=== PATIENT | male | born 1930 | race Caucasian/White ===

== ENCOUNTER → 2016-09-09 | Outpatient (CLI) | payer MEDICARE, MEDICAID ==
[~2016-09-09] MED LIST: /CLON1TA PO; /ESOM40CA OR; /METO25TAB PO; ASPI81TA63 OR; DIOV320T PO; FERR325T3 PO; FISHCAP PO; GARL10004 PO; GLUC1000 OR; GLUC10TA3 OR; INSUDET SC; INSULANT SC; ISOS30BRAN OR; LISI5TAB PO; METO50TA4 OR; MULTTAB4 PO; NORV5TAB OR; PLAV75TA2 OR; PRAV20TA2 PO; [UNRECOGNIZED DRUG - CODE] TD; onglyza PO
[2016-09-09 12:48] LABS: MEAN CORPUSCULAR HEMOGLOBIN 30.5 pg (27.0-33.0); MEAN CORPUSCULAR HGB CONC 33.4 g/dl (32.0-36.5); MEAN CORPUSCULAR VOLUME 91.4 fl (80.0-96.0); RED CELL DISTRIBUTION WIDTH 13.4 % (11.5-14.5); WHITE BLOOD COUNT 6.5 K/mm3 (4.0-10.0)
--- NOTE | 2016-09-09 13:04 | ECGEPIP ---
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 First-degree AV block. 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 Right bundle branch block, new from 08/06/15 Should there be a history of syncope, pacemaker implantation would be recommended Electronically Signed On 09-09-2016 13:04:08 EDT by Dillon El
[2016-09-09 13:18] LABS: ALBUMIN 3.5 GM/DL (3.2-5.2); ALBUMIN/GLOBULIN RATIO 1.25 (1.00-1.93); ALKALINE PHOSPHATASE 51 U/L (45-117); ALT/SGPT 21 U/L (12-78); ANION GAP 8 MEQ/L (8-16); AST/SGOT 9 U/L (15-37); BILIRUBIN,TOTAL 0.4 MG/DL (0.2-1.0); BLOOD UREA NITROGEN 20 MG/DL (7-18); CALCIUM LEVEL 8.5 MG/DL (8.8-10.2); CARBON DIOXIDE LEVEL 27 MEQ/L (21-32); CHLORIDE LEVEL 108 MEQ/L (98-107); CHOLESTEROL LEVEL 136 MG/DL (<200); CREATININE FOR GFR 0.96 MG/DL (0.70-1.30); GLOMERULAR FILTRATION RATE > 60.0 (>35); GLUCOSE, FASTING 243 MG/DL (83-110); POTASSIUM SERUM 4.5 MEQ/L (3.5-5.1); SODIUM LEVEL 143 MEQ/L (136-145); TOTAL PROTEIN 6.3 GM/DL (6.4-8.2); TRIGLYCERIDES LEVEL 121 MG/DL (<150)
--- NOTE | 2016-09-09 14:03 | REP ---
Chest two views HISTORY: Hypertension Comparison: 08/06/2015 The lungs are clear. The heart is normal in size. The pulmonary vasculature is normal in appearance. There is an old compression fracture of an upper thoracic vertebral body. Degenerative changes present in the thoracic spine. IMPRESSION: No acute disease. Signed by Modesto Farrar MD 09/09/2016 01:54 P
== END ==
LOC: M LAB 11:26
PROVIDERS: ATTEND Family Medicine
DX: I10 Essential (primary) hypertension (principal); E11.9 Type 2 diabetes mellitus without complications; I44.0 Atrioventricular block, first degree; I45.19 Other right bundle-branch block

== ENCOUNTER 2018-03-18 09:02 | Inpatient (IN) | payer MEDICARE, MEDICAID ==
[~2018-03-18] VITALS: Ht 162.6 cm; Wt 99.6 kg
[2018-03-18] MEDS ORDERED: PRAV40TA2 PO (09:18)
[2018-03-18] MEDS ORDERED: NEXI40GR PO (09:18)
[2018-03-18] MEDS ORDERED: CLOP75TA2 PO (09:18)
[2018-03-18] MEDS ORDERED: AMLO5TAB6 PO (09:18)
[2018-03-18] MEDS ORDERED: DOXA1TAB41 PO (09:18)
[2018-03-18] MEDS ORDERED: METO1TAB87 PO (09:18)
[2018-03-18] MEDS ORDERED: LEVE1INJ5 (09:18)
[2018-03-18] MEDS ORDERED: ISOS1TAB12 (09:18)
[2018-03-18] MEDS ORDERED: NS 500 ML IV ONE (10:00)
[2018-03-18] MEDS ORDERED: ISOS30TA4 PO (10:17)
[2018-03-18] MEDS ORDERED: COUG1LOZ8 PO (10:34)
[2018-03-18] MEDS ORDERED: ASPI1TAB PO (10:34)
[2018-03-18 10:36] LABS: BASO % 0.4 % (0.0-1.0); EOS # 0.2 10^3/uL (0.0-0.50); EOS % 2.5 % (0.0-3.0); HEMATOCRIT 35.8 % (42.0-52.0); HEMOGLOBIN 12.1 g/dl (13.5-17.5); LYMPH # 1.8 10^3/uL (1.5-4.5); LYMPH % 25.6 % (24.0-44.0); MEAN CORPUSCULAR HEMOGLOBIN 30.4 pg (27.0-33.0); MEAN CORPUSCULAR HGB CONC 33.8 g/dl (32.0-36.5); MEAN CORPUSCULAR VOLUME 89.9 fl (80.0-96.0); MONO # 0.6 10^3/uL (0.0-0.8); MONO % 8.6 % (0.0-5.0); NEUTROPHILS # 4.3 10^3/uL (1.8-7.7); NEUTROPHILS % 62.6 % (36.0-66.0); PLATELET COUNT, AUTOMATED 271 10^3/uL (150-450); RED BLOOD COUNT 3.98 10^6/uL (4.30-6.10); WHITE BLOOD COUNT 6.9 10^3/uL (4.0-10.0)
[2018-03-18 11:02] LABS: PROTHROMBIN TIME 13.3 SECONDS (12.1-14.4)
[2018-03-18 11:03] LABS: PARTIAL THROMBOPLASTIN TIME 27.5 SECONDS (25.4-37.6)
[2018-03-18 11:11] LABS: ALBUMIN 3.6 GM/DL (3.2-5.2); ALT/SGPT 33 U/L (12-78); BILIRUBIN,DIRECT 0.1 MG/DL (0.0-0.2); BILIRUBIN,TOTAL 0.3 MG/DL (0.2-1.0); BLOOD UREA NITROGEN 21 MG/DL (7-18); CALCIUM LEVEL 8.5 MG/DL (8.8-10.2); CARBON DIOXIDE LEVEL 28 MEQ/L (21-32); CHLORIDE LEVEL 106 MEQ/L (98-107); CPK CREATINE PHOSPHOKINASE 143 U/L (39-308); CREATININE FOR GFR 0.88 MG/DL (0.70-1.30); FREE T4 0.96 NG/DL (0.76-1.46); GLOMERULAR FILTRATION RATE > 60.0 (>35); GLUCOSE, FASTING 103 MG/DL (70-100); LIPASE 47 U/L (73-393); MB/CK RELATIVE INDEX 1.96 (< OR =4); POTASSIUM SERUM 4.5 MEQ/L (3.5-5.1); SODIUM LEVEL 142 MEQ/L (136-145); TOTAL PROTEIN 6.7 GM/DL (6.4-8.2); TROPONIN I < 0.02 NG/ML (< 0.10)
--- NOTE | 2018-03-18 11:37 | REP ---
CHEST, PORTABLE: AP portable view of the chest is performed. There is no acute infiltrate or pulmonary edema. Cardiac silhouette is slightly prominent. There is mild calcification and tortuosity of the thoracic aorta. Mediastinal silhouette is unchanged. IMPRESSION: No acute infiltrate or pulmonary edema. Electronically Signed by Eugenio Fritz MD 03/18/2018 07:01 P
[2018-03-18] MEDS ORDERED: D5W/0.9% SODIUM CHLORIDE 1,000 ML IV SCH (13:25)
[2018-03-18] MEDS ORDERED: ACETAMINOPHEN TAB 650MG DOSE (2X325MG) PO PRN (13:30)
[2018-03-18] MEDS ORDERED: ONDANSETRON 4 MG TAB (S0181) PO PRN (13:30)
[2018-03-18] MEDS: PANTOPRAZOLE 40MG INJ (PROTONIX) (C9113) IV SCH ×2 (13:54→21:32)
[2018-03-18 16:27] LABS: BASO % 0.4 % (0.0-1.0); EOS # 0.1 10^3/uL (0.0-0.50); EOS % 1.8 % (0.0-3.0); HEMATOCRIT 34.5 % (42.0-52.0); HEMOGLOBIN 11.5 g/dl (13.5-17.5); LYMPH % 29.3 % (24.0-44.0); MEAN CORPUSCULAR HEMOGLOBIN 30.2 pg (27.0-33.0); MEAN CORPUSCULAR HGB CONC 33.3 g/dl (32.0-36.5); MEAN CORPUSCULAR VOLUME 90.6 fl (80.0-96.0); MONO # 0.6 10^3/uL (0.0-0.8); MONO % 8.3 % (0.0-5.0); NEUTROPHILS # 4.1 10^3/uL (1.8-7.7); NEUTROPHILS % 60.1 % (36.0-66.0); PLATELET COUNT, AUTOMATED 258 10^3/uL (150-450); RED BLOOD COUNT 3.81 10^6/uL (4.30-6.10); WHITE BLOOD COUNT 6.9 10^3/uL (4.0-10.0)
--- NOTE | 2018-03-18 17:03 | HPEPDOC ---
[facility] Medical History & Physical Date of Admission Mar 18, 2018 History and Physical CHIEF COMPLAINT: [GIB - BRBPR] HISTORY OF PRESENT ILLNESS: This is an 88 yo male with multiple pmhx who presented to the ED with BRBPR this morning. Patient said he went to have a BM and had soft stool with blood. He denied any abd pain, chest pain, sob, headache, nausea, vomiting, diarrhea, dizziness , fever or chills. Patient said he never had a colonoscopy. REVIEW OF SYSTEMS: All 14 points ROS is negative except what's stated in HPI PHYSICAL EXAMINATION: GEN: no acute distress HEENT : no lymphadenopathy, PERRLA , no oropharyngeal erythema or exudates CVS: Normal S1/s2, no murmurs, rubs or gallops, RESP: Lungs are clear to auscultation bilaterally, no crackles, wheezes or rhonchi Abd: soft, nontender, nondistended, + BS MSK: full ROM, 5/5 strength in all extremities Integumentary: no rash or bruises Neuro: AOAx3, no focal deficit psych: normal mood, good judgement and cooperative PAST MEDICAL HISTORY: copd Dm2 HTN CVA - 2 yrs ago HI s/p stents - last stent in 1999 previous GIB - similar to today's episode BPH PAST SURGICAL HISTORY: stent placement SOCIAL HISTORY: Tobacco use:[quit 20yrs ago ] ETOH: [quit yrs ago] Illicit drug use: [no] IV drug use: [denied] FAMILY HISTORY: negative ALLERGIES: Please see below HOME MEDICATIONS: Please see below. LABORATORY DATA: See below. IMAGING: [cxr - negative] MICROBIOLOGY: Please see below. ASSESSMENT and plan BRBPR - on dual antiplt hold antiplts - aspirin and plavix ] gentle hydration for now cbc q8h ative T and S GI consult - consulted by ED protonix 40mg iv bid DM2 uncontrolled c/w inuslin hypoglycemic protocol ivf - d5/ns HTN monitor bp - will only c/w 1 bp meds bc bp is high hold other bp meds BPH c/w home med dvt ppx -scd full code , from home Vital Signs Vital Signs Date Time Temp Pulse Resp B/P (MAP) Pulse Ox O2 Delivery O2 Flow Rate FiO2 03/18/18 15:47 56 96 03/18/18 14:30 162/97 (118) 03/18/18 09:03 98.8 18 Room Air Laboratory Data Labs 24H Laboratory Tests 2 03/18/18 10:20: Immature Granulocyte % (Auto) 0.3, White Blood Count 6.9, Red Blood Count 3.98L, Hemoglobin 12.1L, Hematocrit 35.8L, Mean Corpuscular Volume 89.9, Mean Corpuscular Hemoglobin 30.4, Mean Corpuscular Hemoglobin Concent 33.8, Red Cell Distribution Width 13.7, Platelet Count 271, Neutrophils (%) (Auto) 62.6, Lymphocytes (%) (Auto) 25.6, Monocytes (%) (Auto) 8.6H, Eosinophils (%) (Auto) 2 .5, Basophils (%) (Auto) 0.4, Neutrophils # (Auto) 4.3, Lymphocytes # (Auto) 1.8, Monocytes # (Auto) 0.6, Eosinophils # (Auto) 0.2, Basophils # (Auto) 0.0, Nucleated Red Blood Cells % (auto) 0.0, Prothrombin Time 13.3, Prothromb Time International Ratio 1.00, Activated Partial Thromboplast Time 27.5, Anion Gap 8, Glomerular Filtration Rate > 60.0, Lactic Acid Level 1.3, Calcium Level 8.5L, Aspartate Amino Transf (AST/SGOT) 20, Alanine Aminotransferase (ALT/SGPT) 33, Alkaline Phosphatase 66, Total Bilirubin 0.3, Direct Bilirubin 0.1, Total Creatine Kinase 143, Creatine Kinase MB 3.0, Creatine Kinase MB Relative Index 1.96, Troponin I < 0.02, Total Protein 6.7, Albumin 3.6, Albumin/Globulin Ratio 1.16, Lipase 47L, Thyroid Stimulating Hormone (TSH) 2.170, Free Thyroxine 0.96 03/18/18 16:13: Immature Granulocyte % (Auto) 0.1, White Blood Count 6.9, Red Blood Count 3.81L, Hemoglobin 11.5L, Hematocrit 34.5L, Mean Corpuscular Volume 90.6, Mean Corpuscular Hemoglobin 30.2, Mean Corpuscular Hemoglobin Concent 33.3, Red Cell Distribution Width 13.6, Platelet Count 258, Neutrophils (%) (Auto) 60.1, Lymphocytes (%) (Auto) 29.3, Monocytes (%) (Auto) 8.3H, Eosinophils (%) (Auto) 1.8, Basophils (%) (Auto) 0.4, Neutrophils # (Auto) 4.1, Lymphocytes # (Auto) 2.0, Monocytes # (Auto) 0.6, Eosinophils # (Auto) 0.1, Basophils # (Auto) 0.0, Nucleated Red Blood Cells % (auto) 0.0 CBC/BMP Laboratory Tests 03/18/18 10:20 Red Blood Count 3.98 L, Mean Corpuscular Volume 89.9, Mean Corpuscular Hemoglobin 30.4, Mean Corpuscular Hemoglobin Concent 33.8, Red Cell Distribution Width 13.7, Neutrophils (%) (Auto) 62.6, Lymphocytes (%) (Auto) 25.6, Monocytes (%) (Auto) 8.6 H, Eosinophils (%) (Auto) 2.5, Basophils (%) (Auto) 0.4, Neutrophils # (Auto) 4.3, Lymphocytes # (Auto) 1.8, Monocytes # (Auto) 0.6, Eosinophils # (Auto) 0.2, Basophils # (Auto) 0.0 03/18/18 16:13 Red Blood Count 3.81 L, Mean Corpuscular Volume 90.6, Mean Corpuscular Hemoglobin 30.2, Mean Corpuscular Hemoglobin Concent 33.3, Red Cell Distribution Width 13.6, Neutrophils (%) (Auto) 60.1, Lymphocytes (%) (Auto) 29.3, Monocytes (%) (Auto) 8.3 H, Eosinophils (%) (Auto) 1.8, Basophils (%) (Auto) 0.4, Neutrophils # (Auto) 4.1, Lymphocytes # (Auto) 2.0, Monocytes # (Auto) 0.6, Eosinophils # (Auto) 0.1, Basophils # (Auto) 0.0 Microbiology Microbiology 03/18/18 Blood Culture, Received Pending 03/18/18 Blood Culture, Received Pending Home Medications Scheduled Amlodipine Besylate (Amlodipine Besylate) 5 Mg Tab, 5 MG PO QHS Aspirin (Aspirin 81) 81 Mg Tab, 81 MG PO DAILY Clopidogrel Bisulfate (Clopidogrel) 75 Mg Tab, 75 MG PO DAILY Doxazosin Mesylate (Doxazosin Mesylate) 2 Mg Tab, 2 MG PO QHS Esomeprazole Magnesium (Nexium) 40 Mg Gra, 40 MG PO QHS Insulin Detemir (Levemir Flextouch) 100 Unit/Ml Inj, 60 UNITS QHS Isosorbide Mononitrate (Isosorbide Mononitrate ER) 30 Mg Tab, 30 MG PO DAILY Metoprolol Tartrate (Metoprolol Tartrate) 25 Mg Tab, 25 MG PO BID Pravastatin Sod (Pravastatin Sodium) 40 Mg Tab, 40 MG PO QHS Scheduled PRN (Cough Drops Sugar Free) 7.6 Mg Glo, 1 GLO PO Q4H PRN for COUGH Allergies Coded Allergies: No Known Drug Allergy (Verified Allergy, Unknown, 05/07/12) CRISTINE SOLIS MD Mar 18, 2018 17:03
[2018-03-18] MEDS ORDERED: HumaLOG INSULIN (NovoLOG) PER UNIT SC SCH (17:30)
[2018-03-18] MEDS: GASTROGRAFIN SOLUTION 30ML PO SCH ×2 (17:48→18:15)
[2018-03-18] MEDS ORDERED: GLUCAGON FOR INJ 1 MG VIAL (J1610) SC PRN (18:00)
[2018-03-18] MEDS ORDERED: DEXTROSE 50% 50 ML SYRINGE IV PRN (18:00)
[2018-03-18] MEDS ORDERED: GLUCOSE 4 GM CHEW TABLET PO PRN (18:00)
[2018-03-18] MEDS ORDERED: ISOVUE-370 76% 100ML VIAL (Q9967) As Ordered ONE (19:17)
--- NOTE | 2018-03-18 19:45 | ECGEPIP ---
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
--- NOTE | 2018-03-18 20:42 | REPVR ---
EXAM: CT Abdomen and Pelvis With Contrast EXAM DATE/TIME: 03/18/2018 7:23 PM CLINICAL HISTORY: 88 years old, male; Signs and symptoms; Other: Gi bleed TECHNIQUE: Axial computed tomography images of the abdomen and pelvis with intravenous contrast. All CT scans at this facility use at least one of these dose optimization techniques: automated exposure control; mA and/or kV adjustment per patient size (includes targeted exams where dose is matched to clinical indication); or iterative reconstruction. Coronal and sagittal reformatted images were created and reviewed. CONTRAST: 100 ml of ISOVUE 370 administered intravenously. COMPARISON: No relevant prior studies available. FINDINGS: Lower thorax: Minimal dependent changes within the lung bases. ABDOMEN: Liver: Unremarkable. No mass. Gallbladder and bile ducts: Unremarkable. No calcified stones. No ductal dilation. Pancreas: Unremarkable. No ductal dilation. Spleen: Unremarkable. No splenomegaly. Adrenals: Normal. No mass. Kidneys and ureters: Indeterminate exophytic low-density lesion measuring 12 mm within the right kidney midpole (axial image 47). Followup CT scan in 6 months is recommended as clinically indicated. Stomach and bowel: Colonic diverticulosis without diverticulitis. Unremarkable small bowel and stomach. No bowel obstruction. Appendix: No evidence of appendicitis. PELVIS: Bladder: Unremarkable as visualized. Reproductive: The prostate is enlarged measuring 8.3 cm transverse by 6.2 cm AP. ABDOMEN and PELVIS: Intraperitoneal space: Unremarkable. No free air. No significant fluid collection. Bones/joints: Degenerative spondylosis of the lumbar spine. No fracture or suspicious bone lesion. Soft tissues: Unremarkable. Vasculature: Unremarkable. No abdominal aortic aneurysm. Lymph nodes: Unremarkable. No enlarged lymph nodes. IMPRESSION: 1. No acute abdominopelvic process. 2. Colonic diverticulosis. 3. Enlarged prostate. 4. Indeterminate exophytic low-density lesion measuring 12 mm within the right kidney midpole (axial image 47). Followup CT scan in 6 months is recommended as clinically indicated. Electronically signed by: Henok Galeas On 03/18/2018 20:41:51 PM
[2018-03-18 21:00] VITALS: BP 178/83
[2018-03-18] MEDS: amLODIPine 5 MG TAB PO SCH (21:31)
[2018-03-18] MEDS: DOXAZOSIN MESYLATE 1 MG TAB PO SCH (21:31)
[2018-03-18] MEDS: PRAVASTATIN 20 MG TAB PO SCH (21:32)
[2018-03-18] MEDS: NS 1,000 ML IV SCH (22:09)
[2018-03-18 23:59] VITALS: BP 173/79
[2018-03-19 00:51] LABS: BASO % 0.3 % (0.0-1.0); EOS # 0.1 10^3/uL (0.0-0.50); EOS % 1.8 % (0.0-3.0); HEMOGLOBIN 11.2 g/dl (13.5-17.5); LYMPH # 2.2 10^3/uL (1.5-4.5); LYMPH % 29.6 % (24.0-44.0); MEAN CORPUSCULAR HEMOGLOBIN 29.9 pg (27.0-33.0); MEAN CORPUSCULAR HGB CONC 32.9 g/dl (32.0-36.5); MEAN CORPUSCULAR VOLUME 90.7 fl (80.0-96.0); MONO # 0.7 10^3/uL (0.0-0.8); MONO % 8.6 % (0.0-5.0); NEUTROPHILS # 4.5 10^3/uL (1.8-7.7); NEUTROPHILS % 59.4 % (36.0-66.0); PLATELET COUNT, AUTOMATED 243 10^3/uL (150-450); RED BLOOD COUNT 3.75 10^6/uL (4.30-6.10); WHITE BLOOD COUNT 7.6 10^3/uL (4.0-10.0)
[2018-03-19 04:00] VITALS: BP 172/70
[2018-03-19 05:34] LABS: BLOOD UREA NITROGEN 14 MG/DL (7-18); CALCIUM LEVEL 8.1 MG/DL (8.8-10.2); CARBON DIOXIDE LEVEL 27 MEQ/L (21-32); CHLORIDE LEVEL 108 MEQ/L (98-107); CREATININE FOR GFR 0.82 MG/DL (0.70-1.30); GLOMERULAR FILTRATION RATE > 60.0 (>35); GLUCOSE, FASTING 174 MG/DL (70-100); POTASSIUM SERUM 3.9 MEQ/L (3.5-5.1); SODIUM LEVEL 140 MEQ/L (136-145)
[2018-03-19] MEDS: **hydrALAZINE** 10 MG TAB PO SCH ×4 (06:00→23:59)
[2018-03-19] MEDS: NS 1,000 ML IV SCH (07:00)
[2018-03-19 08:00] VITALS: BP 162/78
[2018-03-19] MEDS: PANTOPRAZOLE 40MG INJ (PROTONIX) (C9113) IV SCH ×2 (08:09→20:20)
[2018-03-19] MEDS ORDERED: amLODIPine 5 MG TAB PO ONE (08:15)
[2018-03-19 09:51] LABS: BASO % 0.3 % (0.0-1.0); EOS # 0.1 10^3/uL (0.0-0.50); EOS % 2.1 % (0.0-3.0); HEMATOCRIT 33.6 % (42.0-52.0); HEMOGLOBIN 11.2 g/dl (13.5-17.5); LYMPH % 33.3 % (24.0-44.0); MEAN CORPUSCULAR HEMOGLOBIN 30.5 pg (27.0-33.0); MEAN CORPUSCULAR HGB CONC 33.3 g/dl (32.0-36.5); MEAN CORPUSCULAR VOLUME 91.6 fl (80.0-96.0); MONO # 0.7 10^3/uL (0.0-0.8); MONO % 11.3 % (0.0-5.0); NEUTROPHILS # 3.2 10^3/uL (1.8-7.7); NEUTROPHILS % 52.8 % (36.0-66.0); PLATELET COUNT, AUTOMATED 252 10^3/uL (150-450); RED BLOOD COUNT 3.67 10^6/uL (4.30-6.10); WHITE BLOOD COUNT 6.1 10^3/uL (4.0-10.0)
[2018-03-19 12:00] VITALS: BP 154/70
[2018-03-19] MEDS: HumaLOG INSULIN (NovoLOG) PER UNIT SC SCH ×3 (12:00→23:58)
--- NOTE | 2018-03-19 15:42 | IPNPDOC ---
Text Note Date of Service The patient was seen on 03/19/18. NOTE Subjective: Patient states he is having bright red blood per rectum, and he s topped his Plavix as well as aspirin prior to coming in. Denies any abdominal pain. No nausea or vomiting. Objective: Vitals: (see below) General: No acute distress, laying comfortably in bed. HEENT: Moist mucous membranes. Neck: No JVD or lymphadenopathy Cardiac: RRR, No murmurs Pulm: Clear to auscultation b/l. No wheezing, rhonchi Abd: NT/ND + BS. Obese Ext: No edema or cyanosis Alert and oriented Following commands moving all extremities. Labs (see below) Images: CT abdomen and pelvis on 03/18/18 IMPRESSION: 1. No acute abdominopelvic process. 2. Colonic diverticulosis. 3. Enlarged prostate. 4. Indeterminate exophytic low-density lesion measuring 12 mm within the right kidney midpole (axial image 47). Followup CT scan in 6 months is recommended as clinically indicated. Assessment/Plan 1. Bright red blood per rectum while on aspirin and Plavix. Patient stopped by himself at home. He lives alone.. Hemodynamically stable. Hemoglobin stable. No need for transfer patient at this time. Dr. Barksdale consulted with the plan for scope. We'll continue to monitor. 2. Type II AV block asymptomatic- patient has been on metoprolol which is currently being held. We'll continue to monitor on telemetry. Metoprolol has been discontinued. Dr. El consulted. 3. Hypertension controlled continue current meds. On hydralazine as well. 4. Diabetes mellitus continue sliding scale insulin. 5. History of BPH continue meds 6. History of CAD/CVA on aspirin and Plavix at home which have been held for now. Continue statin. DVT prophy: SCDs Overall prognosis guarded. VS,Fishbone, I+O VS, Fishbone, I+O Laboratory Tests 03/18/18 16:13 Red Blood Count 3.81 L, Mean Corpuscular Volume 90.6, Mean Corpuscular Hemoglobin 30.2, Mean Corpuscular Hemoglobin Concent 33.3, Red Cell Distribution Width 13.6, Neutrophils (%) (Auto) 60.1, Lymphocytes (%) (Auto) 29.3, Monocytes (%) (Auto) 8.3 H, Eosinophils (%) (Auto) 1.8, Basophils (%) (Auto) 0.4, N eutrophils # (Auto) 4.1, Lymphocytes # (Auto) 2.0, Monocytes # (Auto) 0.6, Eosinophils # (Auto) 0.1, Basophils # (Auto) 0.0 03/19/18 00:43 Red Blood Count 3.75 L, Mean Corpuscular Volume 90.7, Mean Corpuscular Hemoglobin 29.9, Mean Corpuscular Hemoglobin Concent 32.9, Red Cell Distribution Width 13.7, Neutrophils (%) (Auto) 59.4, Lymphocytes (%) (Auto) 29.6, Monocytes (%) (Auto) 8.6 H, Eosinophils (%) (Auto) 1.8, Basophils (%) (Auto) 0.3, Neutrophils # (Auto) 4.5, Lymphocytes # (Auto) 2.2, Monocytes # (Auto) 0.7, Eosinophils # (Auto) 0.1, Basophils # (Auto) 0.0 03/19/18 05:02 Calcium Level 8.1 L 03/19/18 08:56 Red Blood Count 3.67 L, Mean Corpuscular Volume 91.6, Mean Corpuscular Hemoglobin 30.5, Mean Corpuscular Hemoglobin Concent 33.3, Red Cell Distribution Width 13.8, Neutrophils (%) (Auto) 52.8, Lymphocytes (%) (Auto) 33.3, Monocytes (%) (Auto) 11.3 H, Eosinophils (%) (Auto) 2.1, Basophils (%) (Auto) 0.3, Neutrophils # (Auto) 3.2, Lymphocytes # (Auto) 2.0, Monocytes # (Auto) 0.7, Eosinophils # (Auto) 0.1, Basophils # (Auto) 0.0 Vital Signs Date Time Temp Pulse Resp B/P (MAP) Pulse Ox O2 Delivery O2 Flow Rate FiO2 03/19/18 13:13 154/70 03/19/18 12:00 97.2 70 17 94 03/18/18 09:03 Room Air I&O- Last 24 Hours up to 6 AM 03/19/18 06:00 Intake Total 1300 ml Output Total 1175 ml Balance 125 ml NIMISHA STEPHEN MD Mar 19, 2018 15:42
--- NOTE | 2018-03-19 15:43 | ECGEPIP ---
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
[2018-03-19 16:00] VITALS: BP 164/71
[2018-03-19 17:14] LABS: BASO % 0.5 % (0.0-1.0); EOS # 0.1 10^3/uL (0.0-0.50); EOS % 1.9 % (0.0-3.0); HEMATOCRIT 32.8 % (42.0-52.0); HEMOGLOBIN 10.7 g/dl (13.5-17.5); LYMPH # 1.6 10^3/uL (1.5-4.5); LYMPH % 26.6 % (24.0-44.0); MEAN CORPUSCULAR HEMOGLOBIN 29.9 pg (27.0-33.0); MEAN CORPUSCULAR HGB CONC 32.6 g/dl (32.0-36.5); MEAN CORPUSCULAR VOLUME 91.6 fl (80.0-96.0); MONO # 0.6 10^3/uL (0.0-0.8); MONO % 9.9 % (0.0-5.0); NEUTROPHILS # 3.6 10^3/uL (1.8-7.7); NEUTROPHILS % 60.9 % (36.0-66.0); PLATELET COUNT, AUTOMATED 251 10^3/uL (150-450); RED BLOOD COUNT 3.58 10^6/uL (4.30-6.10); WHITE BLOOD COUNT 5.9 10^3/uL (4.0-10.0)
[2018-03-19 20:15] VITALS: BP 172/76
[2018-03-19] MEDS: amLODIPine 5 MG TAB PO SCH (20:19)
[2018-03-19] MEDS: PRAVASTATIN 20 MG TAB PO SCH (20:19)
[2018-03-19] MEDS: DOXAZOSIN MESYLATE 1 MG TAB PO SCH (20:20)
[2018-03-19] MEDS ORDERED: NITROGLYCERIN 0.4 MG SUBL TABLET SL PRN (22:30)
[2018-03-19 22:57] LABS: HEMATOCRIT 33.8 % (42.0-52.0); HEMOGLOBIN 11.2 g/dl (13.5-17.5)
[2018-03-19 23:33] VITALS: BP 142/66
--- NOTE | 2018-03-19 23:34 | CR ---
DATE OF CONSULTATION: 03/19/2018 CARDIOLOGY CONSULTATION REFERRING PHYSICIAN: Dr. Alvarez Nick, Hospitalist. CHIEF COMPLAINT: Intermittent marked bradycardia. HISTORY: This 88-year-old father of four grown children, retired resident of [place], [place], lives in an apartment in a home he shares with his daughter. He has been followed by Dr. Jessica So for multiple medical problems including longstanding hypertension, insulin-dependent diabetes mellitus, coronary artery disease and prior cerebrovascular accidents. He has had a history of peptic ulcer disease and prior gastrointestinal (GI) bleeding. Has had a history of abnormal EKG and admits to having had some falls recently, presented to our emergency room yesterday morning with history of bloody stools. Upon presentation in our emergency room yesterday morning, his vital signs showed a pulse of 40-46 beats per minute (bpm), blood pressure 157/70 supine, dropping to 128/58 standing, respiratory 18, oxygen (O2) saturation 98. Blood work on admission showed a hemoglobin of 11.2, normal white blood cell count and platelet count. Electrolyte balance with BUN 21, creatinine 0.88. Normal PT/INR and negative Troponin I level. Ultrasensitive TSH was normal at 2.2. Was given a bolus of saline and Protonix IV and admitted to a telemetry unit for close observation. In light of his marked bradycardia/AV block, cardiology consultation was requested. OTHER PAST CARDIAC DISEASE/EVENTS/TESTS: Known coronary artery disease with prior myocardial infarction dated back to 1997. Currently denies prior intervention and has had no stress testing for some 20 years. Previously followed by Dr. Domingo, cardiology, who has left [place] in 2003. Last apparent infarction was 2009 and was seen in [facility] but denies prior invasive intervention. Remains on combination protective medications, followed by his primary physician. Has had evidence of sinus bradycardia, first-degree AV block and left anterior hemiblock dating back to February 29, 2008. EKG done as a routine by his primary physician September 09, 2016 showed new onset right bundle branch block as well, new from August 06, 2015. May 08, 2011, an echocardiogram was performed at [facility] because of "acute stroke," which showed normal left ventricular size, wall thickness and wall motion, left ventricular ejection fraction (LVEF) 70%, mild left atrial enlargement with impaired LV diastolic dysfunction but normal estimated mean left atrial pressure. His right ventricle was also at least mildly dilated with normal wall motion. No significant structural or functional valvular abnormality or pericardial effusion. At least borderline cardiomegaly with tortuous/ectatic thoracic aorta dating back to June of 2010. OTHER CARDINAL CARDIAC SIGNS: Despite his age, he still shovels snow and chief ultimate effort limiting symptom is fatigue with some shortness of breath. Experiences rare episode of jaw discomfort, "his angina" with activity, especially in the cold. This is usually short-lived, resolving within minutes and has not taken nitroglycerin for years. Denies orthopnea. Has nocturia at least three times nightly, attributed to prostate problems. Claims not to have had an awareness of his heart action and is unaware of his abnormal EKG. Remote history of rheumatic fever and heart murmur. Longstanding hypertension but is unaware of his cardiac enlargement. Claims to have had intermittent falls related to positional lightheadedness but is unaware of any actual loss of consciousness. Prior history of CVA, as mentioned above, with some persistent right-sided weakness, especially right leg weakness. Also has bilateral foot paresthesia related to diabetic neuropathy. Denies actual claudication. Unaware of prior varicose veins or phlebitis but will have intermittent lower leg swelling. CORONARY RISK FACTORS: Advanced age. Weight problem. (Weight 165 pounds at age 19; max weight 265 pounds several years ago; has lost some 20 pounds in the past few years). Longstanding essential hypertension and diabetes mellitus. Longstanding hyperlipidemia. Prior 40-year up to three pack per day smoking, stopped some 10 years ago. FAMILY HISTORY: Not applicable. OTHER PAST MEDICAL/SURGICAL HISTORY: Remote gastroesophageal reflux disease and peptic ulcer with prior GI bleeding. Prostatism with prostate biopsies 2000, performed for elevated PSA, were negative for malignancy. Followup study 2007 was also negative for malignancy. No known thyroid dysfunction. Prior mechanical falls with nondisplaced right knee proximal tibia and tibial plateau fracture, not requiring intervention, September 1999. Cerebrovascular accident May 2011. GI bleeding December 2012. SYSTEMS REVIEW: Denies any fever, chills or night sweats. Reduced visual acuity but does not use glasses. No hearing problems. Has upper and lower dentures. Currently denies any heartburn, reflux or dyspepsia. No abdominal pains. Rectal bleeding, as mentioned above, black tarry stools and red bloody stools. Chronic intermittent cough productive of white or clear sputum. No history of hemoptysis. Very remote episode of pneumonia. Known prostatism, on combination medical therapy with negative prostate biopsies times two for elevated PSA. Some right knee arthralgia. Foot paresthesia. Ongoing right leg weakness since his CVA. All other systems review was negative. MEDICATIONS: On admission, was taking amlodipine 5 mg daily, Plavix 75 mg daily, aspirin 81 mg daily, pravastatin 40 mg daily, metoprolol tartrate 25 mg twice a day, isosorbide mononitrate 30 mg daily, Nexium 40 mg daily, doxazosin 2 mg nightly, and insulin Levemir FlexTouch 100 units per mL injection 60 units nightly. ALLERGIES: None known. PHYSICAL EXAMINATION: Constitutional: Pleasantly demented, overweight, slightly barrel-chested elderly male currently lying comfortably flat. Vital signs: Heart rate 42 beats per minute and regular with irregularity, blood pressure 180/70 supine, 168/68 sitting with legs dependent (asymptomatic), respiratory rate 16 per minute, O2 saturation 96% on room air. Afebrile. Weight 224 pounds, height 64 inches, body mass index (BMI) 38.4. Eyes: Normal conjunctivae without pallor or icterus. No xanthelasma. ENT/mouth: Upper and lower dentures. Normal oral moisture. No central cyanosis. Neck: Trachea midline. Thyroid not enlarged. Neck veins were at the level of the sternal angle. Respiratory: Increased anteroposterior chest diameter with reduced chest excursion and fair air entry over both lung hay. No current inspiratory rales. Slight prolongation of expiration but no audible wheeze. Cardiovascular: Apical impulse not palpable. Heart sounds somewhat distant with persistent splitting of S2. Questionable S4 and has a systolic ejection murmur grade 2/6 heard maximally along the distal lower left sternal border radiating toward the right base and to the base of his neck. No diastolic murmur. Brisk carotid upstrokes and increased volume. Transmitted bruit as mentioned. Upper extremity and femoral pulses were symmetrical and normal. Pedal pulses were symmetrically reduced. Abdominal aorta was not palpable because of obesity. No audible bruit. No varicose veins but dilated superficial venules with no current dependent edema. Extremities: No clubbing, peripheral cyanosis or splinter hemorrhages. GI: Overweight, soft, nontender abdomen with no apparent hepatosplenomegaly. Normal bowel sounds. Rectal examination not indicated. Musculoskeletal: No obvious joint deformities. Fair muscular strength for his age with normal tone. No obvious right leg weakness clinically. Neuro/Psych: Bright and alert but intermittently disoriented to place. Remarkably could still give a fairly detailed history substantiated by his chart and his daughter. Eye, facial, and extremity movements appeared to be fairly symmetrical and normal. No abnormal movements. Normal spine curvature. Skin: A few atrophic changes of the skin of both lower legs but no other rashes, ecchymotic lesions, pallor or icterus. INVESTIGATIONS: Portable upright chest x-ray taken in the emergency room yesterday was reviewed independently and shows cardiomegaly even allowing for this portable technique. His thoracic aorta was slightly unfolded. Pulmonary vasculature did not appear to be congested. No infiltrate or pleural effusion. Serial EKGs: Admission EKG March 18, 2018 at 9:49 a.m. has some motion artifact but intermittent recognizable atrial activity that appears disjointed from the QRS activity that is regular at 40 beats per minute. QRS complexes have an extreme leftward axis consistent with left anterior hemiblock and a right bundle branch block. Small Q-waves V1-V3 suggestive of prior septal infarction. Followup EKG this afternoon shows sinus rhythm at 72 bpm with marked first-degree AV block, left anterior hemiblock and right bundle branch block, septal Q-waves as mentioned before with subtle normalization of previously noted inferolateral T-wave flattening. CT scan of the abdomen and pelvis with contrast yesterday showed minimal dependent changes in his lung bases. No hepatic or hepatobiliary abnormality. Pancreas was unremarkable. No splenomegaly. Normal adrenals. Renal cyst. Colonic diverticulosis without diverticulitis. Unremarkable small bowel and stomach with no obstruction. No appendicitis. His prostate was enlarged but bladder unremarkable. No free air or ascites. Degenerative spondylosis of his lumbar spine but no acute fracture. No abdominal aortic aneurysm. No lymphadenopathy. Blood work: Admission hemoglobin 12.1; that has slowly decreased with IV fluid to 10.7 the afternoon, normal red blood cell indices. Normal white blood cell counts and platelet counts. PT is 13.3, INR 1.0, PTT 27.5. Electrolytes have been in balance, BUN 21 on admission, with IV fluid it is currently 14, creatinine was 0.88 and 0.82 today. Presenting random glucose 103, 174 this morning. Magnesium level was normal at 2.0. TSH was normal at 2.17. Normal albumin at 3.6 and normal liver function studies. A Troponin I level was negative. IMPRESSION/PLAN: 1. Second-degree and higher degree AV block/recurrent falls: Has longstanding conduction tissue disease with first-degree AV block, left anterior hemiblock and right bundle branch block that is new from 2016. environmental monitoring technician has documented second-degree AV block and higher level, possibly complete heart block on admission with profound bradycardia. These findings associated with his recurrent falls certainly justify implantation of a permanent dual-chamber pacemaker. The indication, procedure and risks were discussed with the patient and his daughter, Brittany, who appeared to understand and agree. Arrangements will be made for a pacer implantation tomorrow under monitored local anesthesia. 2. Coronary artery disease (resighini vessel)/prior history of myocardial infarction (NE): Describes only rare episodes of effort related jaw discomfort and no recent problems. Serial EKGs here do show some subtle nonspecific T-wave changes but Troponin I was negative. Has small septal Q-waves but prior echocardiogram 2011 showed normal left ventricular size, wall thickness and wall motion. At this point, he is receiving amlodipine and pravastatin. His beta keeley and nitrate therapy was placed on hold. In light of his blood pressure, we have elected to increase his amlodipine dosage and provide topical nitro paste. 3. 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 No symptoms or signs of congestion on his current level of activity. Has radiographic and echocardiographic evidence of cardiomegaly due to his blood pressure. As mentioned, we intend to increase his amlodipine and use topical nitro paste to help with blood pressure control. Remains on Cardura for his prostate problems. Current renal function is normal despite his diabetes and longstanding hypertension. 4. Murmur: Auscultatory findings in keeping with LV outflow tract origin and likely related to aortic valvular sclerosis and his increased stroke volume due to his bradycardia. Fortunately, no symptoms or signs of endocarditis. Will plan on obtaining a followup echocardiogram/Doppler study. I intend to follow him closely with you and appreciate the opportunity to participate in his care. Best regards. Yours Sincerely,
[2018-03-19] MEDS: NITROGLYCERIN 2% OINT 1 GM *U/D* PKT TOP SCH (23:58)
[2018-03-20] VITALS (12 sets, daily range): BP systolic 108–169; BP diastolic 57–80
[2018-03-20] MEDS: NITROGLYCERIN 2% OINT 1 GM *U/D* PKT TOP SCH ×5 (03:54→20:14)
[2018-03-20] MEDS ORDERED: GOLYTELY SOLN 4000 ML BTL PO ONE (06:00)
[2018-03-20] MEDS: HumaLOG INSULIN (NovoLOG) PER UNIT SC SCH ×3 (06:00→16:59)
[2018-03-20 06:01] LABS: HEMATOCRIT 32.8 % (42.0-52.0); HEMOGLOBIN 10.7 g/dl (13.5-17.5)
[2018-03-20] MEDS: **hydrALAZINE** 10 MG TAB PO SCH (06:01)
[2018-03-20 06:30] LABS: BLOOD UREA NITROGEN 13 MG/DL (7-18); CALCIUM LEVEL 8.1 MG/DL (8.8-10.2); CARBON DIOXIDE LEVEL 25 MEQ/L (21-32); CHLORIDE LEVEL 109 MEQ/L (98-107); CREATININE FOR GFR 0.83 MG/DL (0.70-1.30); GLOMERULAR FILTRATION RATE > 60.0 (>35); GLUCOSE, FASTING 126 MG/DL (70-100); MAGNESIUM LEVEL 2.2 MG/DL (1.8-2.4); POTASSIUM SERUM 3.6 MEQ/L (3.5-5.1); SODIUM LEVEL 141 MEQ/L (136-145)
[2018-03-20] MEDS ORDERED: LR 1,000 ML IV SCH (07:00)
--- NOTE | 2018-03-20 07:37 | ECGEPIP ---
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
[2018-03-20] MEDS ORDERED: PROPOFOL 200 MG/20 ML VIAL As Ordered ONE ×2 (08:17→08:18)
[2018-03-20] MEDS ORDERED: LIDOCAINE 2% INJ 100 MG/5 ML SDV (FOR ANES.) As Ordered ONE (08:18)
[2018-03-20] MEDS ORDERED: ONDANSETRON 4MG/2ML VIAL (J2405) As Ordered ONE (08:18)
[2018-03-20] MEDS ORDERED: MIDAZOLAM INJ 2 MG/2 ML VIAL (J2250) As Ordered ONE (08:18)
[2018-03-20] MEDS ORDERED: fentaNYL 100 MCG/2 ML INJECTION (J3010) As Ordered ONE (08:19)
[2018-03-20] MEDS ORDERED: ceFAZolin 2 GM/D5W 50 ML IV BAG (J0690 PER 500MG) As Ordered ONE (08:38)
[2018-03-20] MEDS: amLODIPine 5 MG TAB PO SCH ×2 (08:45→20:15)
[2018-03-20] MEDS ORDERED: BACITRACIN PWD 50,000 UNITS VIAL As Ordered ONE (08:58)
[2018-03-20] MEDS ORDERED: AMIODARONE HCL 360 MG/200 ML PREMIXED BAG (NEXTERONE) As Ordered ONE (08:58)
[2018-03-20] MEDS ORDERED: ISOVUE-300 61% 50ML VIAL (Q9967) As Ordered ONE (08:58)
[2018-03-20] MEDS ORDERED: LIDOCAINE 1% SDV INJ 30 ML VIAL As Ordered ONE (08:58)
[2018-03-20] MEDS ORDERED: POTASSIUM CHLORIDE INJ 20 MEQ in LR 1,000 ML IV SCH (09:00)
[2018-03-20] MEDS ORDERED: ePHEDrine SULFATE 25 MG/5 ML(5MG/ML) SYRINGE As Ordered ONE (09:57)
--- NOTE | 2018-03-20 11:05 | RO ---
DATE OF PROCEDURE: 03/20/2018 PROCEDURE: Implantation of permanent dual-chamber pacemaker. IMPLANTING SLIDE FORMING MACHINE TENDER: Dillon El MD ANESTHESIOLOGIST: Eliel Banuelos MD PREOPERATIVE DIAGNOSES: 1. Second-degree and intermittent complete heart block. 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 3. Recurrent falls. POSTOPERATIVE DIAGNOSES: 1. Second-degree and intermittent complete heart block. 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 3. Recurrent falls. TYPE OF ANESTHESIA: Monitored local anesthesia. DESCRIPTION OF PROCEDURE: In the fasting state following informed consent and Ancef 2 grams intravenous (IV) premedication, the patient was taken to the operating theater. Numerous skin electrodes were applied to facilitate continuous electrocardiographic monitoring. The left subclavian region was prepped and draped in the usual fashion, and the skin was infiltrated with 1% Xylocaine. The left axillary vein was catheterized using a micropuncture technique. A 5-cm linear incision was made several centimeters below and parallel to left clavicle. A pocket was fashioned below the level of the incision line, and two bipolar screw-in active fixation steroid-eluting pacing leads were then positioned to the right ventricle apex and high right atrial appendage under fluoroscopic electrocardiographic control. The right ventricular lead ([employer] model number [id number], serial number [id number]) measurements were: Focal and stimulation threshold 1.1 V/0.4 ms/impedance 1037 ohms. The R wave amplitude measured 6.7 mV. The atrial lead ([employer] model number [id number], serial number [id number]) measurements were: Focal and stimulation threshold 0.8 V/0.04 ms/impedance 480 ohms. The P wave amplitude measured 3.2 mV. These leads were secured in position with sleeves sutured at the insertion site. Then, they were connected to a dual-chamber pulse generator ([employer] -- Assurity MRI compatible, model number [id number], serial number [id number]), appropriate DDD pacing was documented. The pulse generator was then placed and the pocket secured in position with a suture through the upper right-hand corner of the epoxy header. The subcutaneous tissues were approximated using a running chromic suture, and the skin was closed using weston. A dry dressing was applied. The patient was returned to recovery room in good condition. No apparent complications. ESTIMATED BLOOD LOSS: 5 mL. His postoperative portable upright chest x-ray shows good lead position with no pneumothorax. His postoperative electrocardiogram (EKG) shows appropriate atrial sensing and tracking with consistent ventricular pacing. Paced QRS complexes with a left bundle branch block configuration and leftward axis in keeping with RV apical stimulation. At this point, we will be able to resume his customary beta-keeley therapy and metoprolol 25 mg twice a day, continued with his amlodipine -- for blood pressure control.
--- NOTE | 2018-03-20 11:06 | REP ---
Portable chest, 10:39 a.m., single AP view, the patient upright: Comparison is 03/18/2018. There is a dual-chamber pacemaker entering from left as an interval change. Skin weston are noted adjacent to the pacemaker pack. There is no pneumothorax or hemothorax. Lung hay otherwise clear. Cardiac size is upper normal for portable positioning, unchanged. Electronically Signed by Eugenio Vela MD 03/20/2018 10:57 A
[2018-03-20 11:23] LABS: HEMATOCRIT 33.5 % (42.0-52.0); HEMOGLOBIN 11.1 g/dl (13.5-17.5)
[2018-03-20 12:09] LABS: MB/CK RELATIVE INDEX 0.82 (< OR =4); TROPONIN I 0.24 NG/ML (< 0.10)
[2018-03-20] MEDS: PANTOPRAZOLE 40MG INJ (PROTONIX) (C9113) IV SCH ×2 (12:13→20:12)
--- NOTE | 2018-03-20 12:24 | ECGEPIP ---
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
[2018-03-20] MEDS ORDERED: METOPROLOL TART 25 MG TABLET PO ONE (12:45)
[2018-03-20 15:54] LABS: HEMATOCRIT 32.2 % (42.0-52.0); HEMOGLOBIN 10.6 g/dl (13.5-17.5)
[2018-03-20 16:23] LABS: MB/CK RELATIVE INDEX 0.84 (< OR =4); TROPONIN I 0.39 NG/ML (< 0.10)
[2018-03-20] MEDS: ceFAZolin SOD 1 GM in D5W MINI-BAG PLUS 50 ML IV SCH (16:58)
[2018-03-20] MEDS ORDERED: hydrOXYzine 10 MG TAB PO PRN (18:30)
[2018-03-20] MEDS: ATORVASTATIN 20 MG TAB PO SCH (20:14)
[2018-03-20] MEDS: DOXAZOSIN MESYLATE 1 MG TAB PO SCH (20:14)
[2018-03-20] MEDS: METOPROLOL TART 25 MG TABLET PO SCH (20:15)
[2018-03-20 22:17] LABS: HEMATOCRIT 32.7 % (42.0-52.0); HEMOGLOBIN 10.8 g/dl (13.5-17.5)
[2018-03-20 22:44] LABS: MB/CK RELATIVE INDEX 0.91 (< OR =4); TROPONIN I 0.24 NG/ML (< 0.10)
[2018-03-21] VITALS: BP 140/65
[2018-03-21] MEDS: NITROGLYCERIN 2% OINT 1 GM *U/D* PKT TOP SCH ×6 (00:45→20:41)
[2018-03-21] MEDS: ceFAZolin SOD 1 GM in D5W MINI-BAG PLUS 50 ML IV SCH ×2 (00:46→09:32)
[2018-03-21 04:00] VITALS: BP 130/71
[2018-03-21 04:16] LABS: HEMATOCRIT 29.9 % (42.0-52.0); HEMOGLOBIN 9.8 g/dl (13.5-17.5)
[2018-03-21 04:32] LABS: BLOOD UREA NITROGEN 17 MG/DL (7-18); CALCIUM LEVEL 7.5 MG/DL (8.8-10.2); CARBON DIOXIDE LEVEL 26 MEQ/L (21-32); CHLORIDE LEVEL 107 MEQ/L (98-107); CPK CREATINE PHOSPHOKINASE 551 U/L (39-308); GLOMERULAR FILTRATION RATE > 60.0 (>35); GLUCOSE, FASTING 114 MG/DL (70-100); MAGNESIUM LEVEL 2.1 MG/DL (1.8-2.4); MB/CK RELATIVE INDEX 0.89 (< OR =4); POTASSIUM SERUM 3.5 MEQ/L (3.5-5.1); SODIUM LEVEL 142 MEQ/L (136-145); TROPONIN I 0.18 NG/ML (< 0.10)
[2018-03-21] MEDS: HumaLOG INSULIN (NovoLOG) PER UNIT SC SCH ×5 (05:38→20:41)
[2018-03-21 05:44] VITALS: BP 148/80
--- NOTE | 2018-03-21 07:05 | IPN ---
DATE: 03/20/2018 Patient seen and examined. Denies any chest pain, pressure or discomfort. Denies any fevers or chills. Status post pacemaker placement. Patient mildly confused. VITAL SIGNS: Temperature 98.7, pulse 74, respirations 20, blood pressure 146/67, pulse oximetry 92% on room air. LABORATORIES: WBC 5.9, hemoglobin and hematocrit 10.6/32.2, platelets 251. Chemistries - sodium 141, potassium 3.6, chloride 109, bicarb 25, BUN 13, creatinine 0.83. Cardiac enzymes 0.2, 0.24, 0.39. PHYSICAL EXAMINATION: GENERAL: Patient obese, alert, comfortable in no acute distress. HEENT: Normocephalic, atraumatic. CARDIAC: Pacemaker placed, dressing intact. PULMONARY: Bilaterally clear, no wheezes, rales or rhonchi. ABDOMEN: Soft, obese, nontender. EXTREMITIES: No clubbing, cyanosis, or edema. ASSESSMENT/PLAN: This is an 88-year-old male patient with underlying medical history of chronic obstructive pulmonary disease (COPD), diabetes type 2, hypertension, cerebrovascular accident (CVA), history of myocardial infarction with stents last done in 1999, previous gastrointestinal (GI) bleed, and benign prostatic hypertrophy (BPH) who presented with bright red blood per rectum. Denies any chest pain, pressure or discomfort, found to be in second degree heart block. PROBLEMS: 1. Bright red blood per rectum. The patient's aspirin and Plavix have been stopped. Patient lives alone at home. GI and gastroenterology has been consulted. Likely will get EGD and colonoscopy tomorrow. 2. Type 2 atrioventricular (AV) block, asymptomatic. The patient was bradycardic. The patient's beta-keeley has been on hold. Consulted cardiology. Status post pacemaker, beta-keeley has been restarted by cardiology. 3. Troponin elevation. Case discussed with Dr. El who believes it likely secondary to demand ischemia, likely due to bradyarrhythmia. Serial cardiac enzymes. Unable to start aspirin and Plavix given GI bleed. No need for transfer as per Dr. El. Continue statin. 4. Hypertension. Continue Norvasc, statin, beta-keeley. 5. Dyslipidemia. Continue statin. 6. Altered mental status, likely sundowning. Supportive care. One to one sitter. 7. Diabetes mellitus. Insulin according to scale. 8. Benign prostatic hypertrophy (BPH). Continue current medications. 9. History of cerebrovascular accident (CVA) and coronary artery disease. Holding aspirin and Plavix given GI bleed. Continue statin. 10. Deep vein thrombosis (DVT) prophylaxis. Sequential compression devices (SCD) given active GI bleed. DISPOSITION: Pending EGD, colonoscopy and clinical improvement.
--- NOTE | 2018-03-21 07:22 | ECGEPIP ---
Stationary ECG Study 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
[2018-03-21 08:00] VITALS: BP 172/80
--- NOTE | 2018-03-21 08:29 | REP ---
Chest PA and lateral views: Comparison is 03/20/2018. A dual-chamber pacemaker entering from left is again identified, unchanged. There is no pneumothorax or pleural fluid collection. Lung hay are clear. Cardiac size is normal. Impression: No interval change. Electronically Signed by Eugenio Vela MD 03/21/2018 08:21 A
[2018-03-21] MEDS: amLODIPine 5 MG TAB PO SCH ×2 (09:32→20:39)
[2018-03-21] MEDS: PANTOPRAZOLE 40MG INJ (PROTONIX) (C9113) IV SCH ×2 (09:32→20:38)
[2018-03-21] MEDS: METOPROLOL TART 25 MG TABLET PO SCH ×2 (09:33→20:40)
[2018-03-21 09:49] LABS: HEMATOCRIT 30.9 % (42.0-52.0); HEMOGLOBIN 10.4 g/dl (13.5-17.5)
[2018-03-21] MEDS ORDERED: LIDOCAINE 2% INJ 100 MG/5 ML SDV (FOR ANES.) As Ordered ONE (12:30)
[2018-03-21] MEDS ORDERED: PROPOFOL 200 MG/20 ML VIAL As Ordered ONE (13:12)
[2018-03-21] MEDS ORDERED: fentaNYL 100 MCG/2 ML INJECTION (J3010) As Ordered ONE (13:13)
--- NOTE | 2018-03-21 14:08 | ROOR ---
Patient Name: Vidal Boone Procedure Date: 03/21/2018 1:53 PM Date of : 1930 Age: 88 Room: [facility] Gender: Male Note Status: Finalized Procedure: Upper GI endoscopy Indications: Acute post hemorrhagic anemia, Melena Providers: Mathieu Barksdale MD Referring MD: 2. Inpatient 2. Inpatient Requesting Provider: Medicines: Monitored Anesthesia Care Complications: No immediate complications. Procedure: Pre-Anesthesia Assessment: - The heart rate, respiratory rate, oxygen saturations, blood pressure, adequacy of pulmonary ventilation, and response to care were monitored throughout the procedure. The Endoscope was introduced through the mouth, and advanced to the second part of duodenum. The upper GI endoscopy was accomplished without difficulty. The patient tolerated the procedure well. Findings: The Z-line was regular and was found 40 cm from the incisors. A small hiatal hernia was present. No other significant abnormalities were identified in a careful examination of the stomach. The exam of the duodenum was otherwise normal. Impression: - Z-line regular, 40 cm from the incisors. - Small hiatal hernia. - No specimens collected. - The examination was otherwise normal. Recommendation: - Patient has a contact number available for emergencies. The signs and symptoms of potential delayed complications were discussed with the patient. Return to normal activities tomorrow. Written discharge instructions were provided to the patient. - High fiber diet. - Continue present medications. - Return patient to [facility] for ongoing care. - The findings and recommendations were discussed with the patient. Mathieu Barksdale MD Mathieu Barksdale MD 03/21/2018 2:08:15 PM This report has been signed electronically. Number of Addenda: 0 Note Initiated On: 03/21/2018 1:53 PM Estimated Blood Loss: Estimated blood loss: none.
--- NOTE | 2018-03-21 14:45 | ROOR ---
Patient Name: Vidal Boone Procedure Date: 03/21/2018 1:54 PM Date of : 1930 Age: 88 Room: [facility] Gender: Male Note Status: Finalized Procedure: Total Colonoscopy to Cecum + Hot Snare Polypectomy + Hemoclip Indications: Melena, Rectal bleeding Providers: Mathieu Barksdale MD Referring MD: 2. Inpatient 2. Inpatient Requesting Provider: Medicines: Monitored Anesthesia Care Complications: No immediate complications. Procedure: Pre-Anesthesia Assessment: - The heart rate, respiratory rate, oxygen saturations, blood pressure, adequacy of pulmonary ventilation, and response to care were monitored throughout the procedure. The Colonoscope was introduced through the anus and advanced to the cecum, identified by appendiceal orifice and ileocecal valve. The colonoscopy was performed without difficulty. The patient tolerated the procedure well. The quality of the bowel preparation was poor. Findings: The perianal and digital rectal examinations were normal. Non-bleeding internal hemorrhoids were found during retroflexion. The hemorrhoids were small and Grade I (internal hemorrhoids that do not prolapse). Multiple small and large-mouthed diverticula were found in the recto-sigmoid colon, sigmoid colon and descending colon. A medium polyp was found at 40 cm proximal to the anus. The polyp was semi-pedunculated. The polyp was removed with a hot snare. Resection and retrieval were complete. To prevent bleeding after the polypectomy, one hemostatic clip was successfully placed (MR conditional). There was no bleeding at the end of the procedure. A small polyp was found in the hepatic flexure. The polyp was sessile. The polyp was removed with a jumbo cold forceps. Resection and retrieval were complete. The exam was otherwise without abnormality on direct and retroflexion views. Impression: - Preparation of the colon was poor. - Non-bleeding internal hemorrhoids. - Diverticulosis in the recto-sigmoid colon, in the sigmoid colon and in the descending colon. - One medium polyp at 40 cm proximal to the anus, removed with a hot snare. Resected and retrieved. Clip (MR conditional) was placed. - One small polyp at the hepatic flexure, removed with a jumbo cold forceps. Resected and retrieved. - The examination was otherwise normal on direct and retroflexion views. - The exam was otherwise normal to the cecum. Recommendation: - Patient has a contact number available for emergencies. The signs and symptoms of potential delayed complications were discussed with the patient. Return to normal activities tomorrow. Written discharge instructions were provided to the patient. - High fiber diet. - Continue present medications. - Await pathology results. - [facility]. - Telephone GI clinic for pathology results in 1 week. - Repeat colonoscopy for symptoms only. - The findings and recommendations were discussed with the patient. Mathieu Barksdale MD Mathieu Barksdale MD 03/21/2018 2:45:18 PM This report has been signed electronically. Number of Addenda: 0 Note Initiated On: 03/21/2018 1:54 PM Estimated Blood Loss: Estimated blood loss: none.
[2018-03-21 15:54] LABS: HEMATOCRIT 33.9 % (42.0-52.0); HEMOGLOBIN 11.1 g/dl (13.5-17.5)
[2018-03-21 16:00] VITALS: BP 145/83
[2018-03-21 20:00] VITALS: BP 146/80
[2018-03-21] MEDS: DOXAZOSIN MESYLATE 1 MG TAB PO SCH (20:39)
[2018-03-21] MEDS: ATORVASTATIN 20 MG TAB PO SCH (20:40)
--- NOTE | 2018-03-21 21:14 | IPNPDOC ---
Text Note Date of Service The patient was seen on 03/21/18. NOTE Patient seen and examined. Denies any chest pain, pressure or discomfort. Denies any fevers or chills. awaiting egd, colonoscopy PHYSICAL EXAMINATION: GENERAL: Patient obese, alert, comfortable in no acute distress. HEENT: Normocephalic, atraumatic. CARDIAC: Pacemaker placed, dressing intact. PULMONARY: Bilaterally clear, no wheezes, rales or rhonchi. ABDOMEN: Soft, obese, nontender. EXTREMITIES: No clubbing, cyanosis, or edema. ASSESSMENT/PLAN: This is an 88-year-old male patient with underlying medical history of chronic obstructive pulmonary disease (COPD), diabetes type 2, hypertension, cerebrovascular accident (CVA), history of myocardial infarction with stents last done in 1999, previous gastrointestinal (GI) bleed, and benign prostatic hypertrophy (BPH) who presented with bright red blood per rectum. Denies any chest pain, pressure or discomfort, found to be in second degree heart block. PROBLEMS: 1. Bright red blood per rectum. The patient's aspirin and Plavix have been stopped. Patient lives alone at home. GI and gastroenterology has been consulted. Likely will get EGD and colonoscopy tomorrow. 2. Type 2 atrioventricular (AV) block, asymptomatic. The patient was bradycardic. The patient's beta-keeley has been on hold. Consulted cardiology. Status post pacemaker, beta-keeley has been restarted by cardiology. 3. Troponin elevation. Case discussed with Dr. El who believes it likely secondary to demand ischemia, likely due to bradyarrhythmia. Serial cardiac enzymes. Unable to start aspirin and Plavix given GI bleed. No need for transfer as per Dr. El. Continue statin. will d/w GI for time frame to restart antiplatelet 4. Hypertension. Continue Norvasc, statin, beta-keeley. 5. Dyslipidemia. Continue statin. 6. Altered mental status, likely sundowning. Supportive care. One to one sitter. resolved 7. Diabetes mellitus. Insulin according to scale. 8. Benign prostatic hypertrophy (BPH). Continue current medications. 9. History of cerebrovascular accident (CVA) and coronary artery disease. Holding aspirin and Plavix given GI bleed. Continue statin. will d/w GI to decide on restarting asa and Plavix 10. Deep vein thrombosis (DVT) prophylaxis. Sequential compression devices (SCD) given active GI bleed. DISPOSITION: dc in 24-48 hr VS,Fishbone, I+O VS, Fishbone, I+O Laboratory Tests 03/20/18 22:08 03/21/18 03:54 Calcium Level 7.5 L, Total Creatine Kinase 551 H 03/21/18 09:41 03/21/18 15:48 Vital Signs Date Time Temp Pulse Resp B/P (MAP) Pulse Ox O2 Delivery O2 Flow Rate FiO2 03/21/18 20:41 146/80 03/21/18 20:40 66 03/21/18 20:00 99.6 19 95 03/21/18 14:51 Room Air I&O- Last 24 Hours up to 6 AM 03/21/18 06:00 Intake Total 1500 ml Output Total 700 ml Balance 800 ml BRENDAN BRUSH MD Mar 21, 2018 21:14
[2018-03-21 21:47] LABS: HEMATOCRIT 30.9 % (42.0-52.0); HEMOGLOBIN 10.3 g/dl (13.5-17.5)
[2018-03-21] MEDS: LEVEMIR (INSULIN DETEMIR) 1 UNITS/0.01ML SC SCH (22:42)
[2018-03-22] VITALS (7 sets, daily range): BP systolic 119–172; BP diastolic 58–71
[2018-03-22] MEDS: NITROGLYCERIN 2% OINT 1 GM *U/D* PKT TOP SCH ×5 (00:03→17:12)
[2018-03-22 04:06] LABS: HEMATOCRIT 29.9 % (42.0-52.0); HEMOGLOBIN 9.9 g/dl (13.5-17.5); MEAN CORPUSCULAR HEMOGLOBIN 30.1 pg (27.0-33.0); MEAN CORPUSCULAR HGB CONC 33.1 g/dl (32.0-36.5); MEAN CORPUSCULAR VOLUME 90.9 fl (80.0-96.0); PLATELET COUNT, AUTOMATED 216 10^3/uL (150-450); RED BLOOD COUNT 3.29 10^6/uL (4.30-6.10); WHITE BLOOD COUNT 8.1 10^3/uL (4.0-10.0)
[2018-03-22 04:28] LABS: BLOOD UREA NITROGEN 12 MG/DL (7-18); CALCIUM LEVEL 7.7 MG/DL (8.8-10.2); CARBON DIOXIDE LEVEL 27 MEQ/L (21-32); CHLORIDE LEVEL 108 MEQ/L (98-107); CREATININE FOR GFR 0.77 MG/DL (0.70-1.30); GLOMERULAR FILTRATION RATE > 60.0 (>35); GLUCOSE, FASTING 86 MG/DL (70-100); MAGNESIUM LEVEL 2.3 MG/DL (1.8-2.4); POTASSIUM SERUM 3.4 MEQ/L (3.5-5.1); SODIUM LEVEL 142 MEQ/L (136-145)
[2018-03-22] MEDS: HumaLOG INSULIN (NovoLOG) PER UNIT SC SCH ×5 (06:53→21:47)
[2018-03-22] MEDS ORDERED: POTASSIUM CHLORIDE 10 MEQ SR TABLET PO ONE (09:00)
[2018-03-22] MEDS: ISOSORBIDE MON. (IMDUR) 30 MG XR TAB PO SCH (09:12)
[2018-03-22] MEDS: amLODIPine 5 MG TAB PO SCH ×3 (09:13→21:06)
[2018-03-22] MEDS: ASPIRIN 81 MG ENTERIC TAB PO SCH (09:14)
[2018-03-22] MEDS: METOPROLOL TART 25 MG TABLET PO SCH (09:14)
[2018-03-22] MEDS: PANTOPRAZOLE 40MG INJ (PROTONIX) (C9113) IV SCH ×3 (09:14→21:02)
--- NOTE | 2018-03-22 20:23 | IPNPDOC ---
Text Note Date of Service The patient was seen on 03/22/18. NOTE Patient seen and examined. Denies any chest pain, pressure or discomfort. Denies any fevers or chills. PHYSICAL EXAMINATION: GENERAL: Patient obese, alert, comfortable in no acute distress. HEENT: Normocephalic, atraumatic. CARDIAC: Pacemaker placed, dressing intact. PULMONARY: Bilaterally clear, no wheezes, rales or rhonchi. ABDOMEN: Soft, obese, nontender. EXTREMITIES: No clubbing, cyanosis, or edema. ASSESSMENT/PLAN: This is an 88-year-old male patient with underlying medical history of chronic obstructive pulmonary disease (COPD), diabetes type 2, hypertension, cerebrovascular accident (CVA), history of myocardial infarction with stents last done in 1999, previous gastrointestinal (GI) bleed, and benign prostatic hypertrophy (BPH) who presented with bright red blood per rectum. Denies any chest pain, pressure or discomfort, found to be in second degree heart block. PROBLEMS: 1. Bright red blood per rectum. The patient's aspirin and Plavix have been stopped. Patient lives alone at home. GI and gastroenterology has been consulted. s/p EGD and colonoscopy wnl. poor prep for colonoscopy. restart ASA and hold plavix as per GI 2. Type 2 atrioventricular (AV) block, asymptomatic. The patient was bradycardic. The patient's beta-keeley has been on hold. Consulted cardiology. Status post pacemaker, beta-keeley has been restarted by cardiology. 3. Troponin elevation. Case discussed with Dr. El who believes it likely secondary to demand ischemia, likely due to bradyarrhythmia. Serial cardiac enzymes. restart aspirin and hold Plavix. No need for transfer as per Dr. El. Continue statin. 4. Hypertension. Continue Norvasc, statin, beta-keeley. 5. Dyslipidemia. Continue statin. 6. Altered mental status, likely sundowning. Supportive care. One to one sitter. resolved 7. Diabetes mellitus. Insulin according to scale. 8. Benign prostatic hypertrophy (BPH). Continue current medications. 9. History of cerebrovascular accident (CVA) and coronary artery disease. restart aspirin and hold Plavix given GI bleed. Continue statin. 10. Deep vein thrombosis (DVT) prophylaxis. Sequential compression devices (SCD) given active GI bleed. DISPOSITION: dc in 24-48 hr VS,Eduar Harvey+O VS, Fishbone, I+O Laboratory Tests 03/21/18 21:37 03/22/18 04:02 Red Blood Count 3.29 L, Mean Corpuscular Volume 90.9, Mean Corpuscular Hemoglobin 30.1, Mean Corpuscular Hemoglobin Concent 33.1, Red Cell Distribution Width 13.5, Calcium Level 7.7 L Vital Signs Date Time Temp Pulse Resp B/P (MAP) Pulse Ox O2 Delivery O2 Flow Rate FiO2 03/22/18 20:00 97.1 71 20 170/71 (104) 96 03/21/18 14:51 Room Air I&O- Last 24 Hours up to 6 AM 03/22/18 05:59 Intake Total 470 ml Output Total 700 ml Balance -230 ml BRENDAN BRUSH MD Mar 22, 2018 20:23
--- NOTE | 2018-03-22 20:26 | ECHO ---
DATE OF PROCEDURE: 03/21/2018 AGE: 88 GENDER: Male REFERRING PHYSICIAN: Dr. Eli HEIGHT: 64 inches. WEIGHT: 219 pounds. BODY SURFACE AREA: 2.03 sq m. INPATIENT: PCU Room 3215 INDICATION: Cardiomegaly. MEASUREMENTS: 2D MEASUREMENTS: RV - 4.8 cm LV- 4.5 cm Septum - 1.3 cm Posterior wall - 1.3 cm Aortic root - 3.8 cm LA - 4.1 cm LVEF - 70% DOPPLER MEASUREMENTS: AV - 2.2 m/s LVOT - 1.5 m/s LVOT diameter- 2.2 cm Mean AV systolic gradient 11 mmHg. Dimensionless index- 0.7 MV-E: 91 A: 113 EA ratio 0.8 Early mitral deceleration time 317 ms E-prime - 7.2 A-prime - 9 E/E prime ratio 12.7 PV - 0.8 m/s Pulmonary artery acceleration time 116 ms RVSP - 43 mmHg IVC - 2.2 cm COMMENTS: Normal sinus rhythm with atrial sensing and tracking and consistent ventricular pacing. Paced QRS complexes with LBBB configuration. Technically challenging study in light of the patient's body habitus but diagnostically useful information was still obtained. M-mode and two-dimensional echocardiography was performed with pulsed, continuous wave, color flow and tissue Doppler studies. Mild concentric left ventricle hypertrophy with hyperkinetic wall motion. No septal wall motion abnormality despite right ventricular pacing. Mildly dilated left atrium with impairment of LV diastolic function and current estimated mean left atrial pressure mildly increased. Least moderately dilated right heart chambers with slightly reduced right ventricular free wall motion and Doppler evidence of at least moderate pulmonary hypertension. IVC size upper limits of normal, yet currently adequate respiratory collapse against an elevated central venous pressure at this time. Three equal size aortic cusps with aortic valvular sclerosis but adequate cusp separation. Dimensionless index against aortic stenosis. No more than trace insufficiency. Mildly dilated aortic root. Moderate mitral annular calcification without functional valvular abnormality. Normal appearing tricuspid valve with least mild tricuspid insufficiency. Pacing leads could be visualized traversing right heart structures but no separate intracardiac mass. Normal pericardial effusion.
[2018-03-22] MEDS: CARVedilol 12.5 MG TAB PO SCH ×2 (21:00→21:05)
[2018-03-22] MEDS: ATORVASTATIN 20 MG TAB PO SCH ×2 (21:00→21:05)
[2018-03-22] MEDS: LOSARTAN 50 MG TAB PO SCH ×2 (21:00→21:05)
[2018-03-22] MEDS: DOXAZOSIN MESYLATE 1 MG TAB PO SCH ×2 (21:00→21:03)
[2018-03-22] MEDS: LEVEMIR (INSULIN DETEMIR) 1 UNITS/0.01ML SC SCH ×2 (21:04→21:47)
--- NOTE | 2018-03-22 21:20 | IPN ---
DATE: 03/22/2018 CARDIOLOGY PROGRESS NOTE SUBJECTIVE: The patient feels well at this time. He has been up in his room to the bathroom without chest discomfort, shortness of breath or dizziness. His GI bleeding apparently has settled down. He has virtually no pacemaker incisional discomfort at this time. OBJECTIVE: Obese, barrel-chested, elderly male laying comfortably, virtually flat, slight pallor. Heart rate 68 bpm and regular, blood pressure 158/70 supine, 154/68 sitting with legs dependent, respiratory rate 18 per minute, oxygen saturation 95% on room air. He is afebrile. Weight today 220 pounds, essentially stable. Normal oral moisture. Trachea midline. Neck veins did not appear to be increased. Increased anteroposterior chest diameter with reduced chest expansion. Has fair air entry over both lung hay with no inspiratory rales. Slight prolongation of expiration but no audible wheeze. Abdomen remains soft. No current dependent edema. EKG yesterday showed sinus rhythm at 64 bpm with appropriate atrial sensing and tracking with consistent ventricular pacing. Paced QRS complexes with leftward axis and LVEDP configuration in keeping with RV apical stimulation. Blood work today showed a hemoglobin down to 9.9 from 11.1 yesterday. Normal red blood cells indices. Normal white blood cell count. Serum potassium was down to 3.4, likely related to IV fluid administration. Other electrolytes were normal, BUN 12, creatinine 0.77, fasting glucose 86. Serial Troponin I levels have been gradually decreasing but reached a peak of only 0.39. Serial CPK values have been elevated with negative MB fractions. IMPRESSION / PLAN: 1. Coronary artery disease ([place] vessel) / prior non-Q-wave MT: As mentioned, we believe his indeterminate troponin I release was related to stress demand rather than an acute coronary syndrome. Has remained free of any symptoms to suggest myocardial ischemia. EKGs have not shown any serial repolarization changes with his paced complexes. In light of his ongoing hypertension, we have decided to replace his metoprolol with carvedilol 25 mg twice a day. We have also added protective losartan especially in light of his hypokalemia. In light of his elevated CPK we would recommend withholding his atorvastatin. Remain on amlodipine with hold parameters for blood pressure less than 130 and discontinue his topical nitro paste. Aspirin antiplatelet therapy remains on hold because of his GI bleeding but hopefully this will be able to be resumed after a couple of weeks with improvement in his hemoglobin. Will obtain iron stores tomorrow morning and would recommend parenteral iron replacement should these prove to be low. 2. Hypertensive heart disease (benign without heart failure): No symptoms or signs of heart failure. Frustratingly his systolic blood pressure remains significantly elevated despite his current combination medical therapy. As mentioned above, we intend to replace his metoprolol with carvedilol, a more effective antihypertensive beta-keeley. We have also started losartan especially in light of his diabetes and hypokalemia. He will continue on the present amlodipine for the time being and he also remains on Cardura for his prostate problems. 3. AV block / dual-chamber pacemaker in situ: His device appears to be functioning appropriately and incision is healing well. His echocardiogram read earlier today shows normal left ventricular wall motion despite the right ventricular pacing. It does show a degree of LV diastolic dysfunction but current estimated mean left atrial pressure was only upper limits of normal. He has some mild concentric left ventricle hypertrophy. 4. Mitral and aortic valve disorder (nonrheumatic): His echocardiographic study demonstrates degenerative changes of both of these structures without hemodynamically significant valvular abnormality. With these medication adjustments and the need to possibly replace his iron stores parenterally, I would recommend in-hospital observation at least for another 24 hours.
[2018-03-23 04:00] VITALS: BP 144/64
[2018-03-23 04:05] VITALS: BP 140/60
[2018-03-23 05:04] LABS: HEMATOCRIT 31.3 % (42.0-52.0); HEMOGLOBIN 10.3 g/dl (13.5-17.5); MEAN CORPUSCULAR HEMOGLOBIN 29.9 pg (27.0-33.0); MEAN CORPUSCULAR HGB CONC 32.9 g/dl (32.0-36.5); PLATELET COUNT, AUTOMATED 263 10^3/uL (150-450); RED BLOOD COUNT 3.44 10^6/uL (4.30-6.10); WHITE BLOOD COUNT 7.8 10^3/uL (4.0-10.0)
[2018-03-23 05:32] LABS: BLOOD UREA NITROGEN 10 MG/DL (7-18); CALCIUM LEVEL 8.3 MG/DL (8.8-10.2); CARBON DIOXIDE LEVEL 27 MEQ/L (21-32); CHLORIDE LEVEL 108 MEQ/L (98-107); CREATININE FOR GFR 0.77 MG/DL (0.70-1.30); FERRITIN 186 NG/ML (26-388); GLOMERULAR FILTRATION RATE > 60.0 (>35); GLUCOSE, FASTING 100 MG/DL (70-100); IRON (FE) 57 UG/DL (65-175); MAGNESIUM LEVEL 2.1 MG/DL (1.8-2.4); PERCENT SATURATION 25.3 % (19.7-50.0); POTASSIUM SERUM 3.9 MEQ/L (3.5-5.1); SODIUM LEVEL 142 MEQ/L (136-145); TOTAL IRON BINDING CAPACITY 225 UG/DL (250-450)
[2018-03-23] MEDS: HumaLOG INSULIN (NovoLOG) PER UNIT SC SCH ×3 (07:19→17:30)
[2018-03-23 08:00] VITALS: BP 148/64
[2018-03-23] MEDS: PANTOPRAZOLE 40MG TAB (PROTONIX) PO SCH ×2 (09:00→20:32)
[2018-03-23] MEDS: PANTOPRAZOLE 40MG INJ (PROTONIX) (C9113) IV SCH (09:58)
[2018-03-23] MEDS: ISOSORBIDE MON. (IMDUR) 30 MG XR TAB PO SCH (09:59)
[2018-03-23] MEDS: CARVedilol 12.5 MG TAB PO SCH ×2 (09:59→20:33)
[2018-03-23] MEDS: amLODIPine 5 MG TAB PO SCH ×2 (09:59→20:35)
[2018-03-23] MEDS: ASPIRIN 81 MG ENTERIC TAB PO SCH (09:59)
[2018-03-23 11:58] VITALS: BP 144/59
--- NOTE | 2018-03-23 13:17 | ECGEPIP ---
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
[2018-03-23] MEDS ORDERED: SLF 3 ML SYR IV PRN (15:00)
[2018-03-23] MEDS ORDERED: ATOR1TAB21 PO (15:11)
[2018-03-23] MEDS ORDERED: CORE25TA PO (15:12)
[2018-03-23] MEDS ORDERED: COZA50TA PO (15:12)
[2018-03-23 16:00] VITALS: BP 144/65
--- NOTE | 2018-03-23 19:00 | IPNPDOC ---
Text Note Date of Service The patient was seen on 03/23/18. NOTE Patient seen and examined. Denies any chest pain, pressure or discomfort. Denies any fevers or chills. PHYSICAL EXAMINATION: GENERAL: Patient obese, alert, comfortable in no acute distress. HEENT: Normocephalic, atraumatic. CARDIAC: Pacemaker placed, dressing intact. PULMONARY: Bilaterally clear, no wheezes, rales or rhonchi. ABDOMEN: Soft, obese, nontender. EXTREMITIES: No clubbing, cyanosis, or edema. ASSESSMENT/PLAN: This is an 88-year-old male patient with underlying medical history of chronic obstructive pulmonary disease (COPD), diabetes type 2, hypertension, cerebrovascular accident (CVA), history of myocardial infarction with stents last done in 1999, previous gastrointestinal (GI) bleed, and benign prostatic hypertrophy (BPH) who presented with bright red blood per rectum. Denies any chest pain, pressure or discomfort, found to be in second degree heart block. PROBLEMS: 1. Bright red blood per rectum. Patient lives alone at home. GI and gastro enterology has been consulted. s/p EGD and colonoscopy wnl. poor prep for colonoscopy. restart ASA a nd hold plavix as per GI 2. Type 2 atrioventricular (AV) block, asymptomatic. The patient was bradycardic. Consulted cardiology. Status post pacemaker, beta-keeley has been restarted by cardiology. 3. Troponin elevation. Case discussed with Dr. El who believes it likely secondary to demand ischemia, likely due to bradyarrhythmia. Serial cardiac enzymes. restart aspirin and hold Plavix. No need for transfer as per Dr. El. Continue statin. 4. Hypertension. Continue Norvasc, statin, beta-keeley. 5. Dyslipidemia. Continue statin. 6. Altered mental status, likely sundowning. Supportive care. resolved 7. Diabetes mellitus. Insulin according to scale. 8. Benign prostatic hypertrophy (BPH). Continue current medications. 9. History of cerebrovascular accident (CVA) and coronary artery disease. restart aspirin and hold Plavix given GI bleed. Continue statin. 10 gait instability, c/w PT 11. Deep vein thrombosis (DVT) prophylaxis. Sequential compression devices (SCD) given active GI bleed. DISPOSITION: dc in 24-48 hr VS,[place], I+O VS, Fishbone, I+O Laboratory Tests 03/23/18 04:32 Red Blood Count 3.44 L, Mean Corpuscular Volume 91.0, Mean Corpuscular Hemoglobin 29.9, Mean Corpuscular Hemoglobin Concent 32.9, Red Cell Distribution Width 13.7, Calcium Level 8.3 L Vital Signs Date Time Temp Pulse Resp B/P (MAP) Pulse Ox O2 Delivery O2 Flow Rate FiO2 03/23/18 16:00 98.3 60 18 144/65 (91) 96 03/21/18 14:51 Room Air I&O- Last 24 Hours up to 6 AM 03/23/18 06:00 Intake Total 1280 ml Output Total 1450 ml Balance -170 ml BRENDAN BRUSH MD Mar 23, 2018 19:00
[2018-03-23 20:00] VITALS: BP 168/73
[2018-03-23] MEDS: LOSARTAN 50 MG TAB PO SCH (20:32)
[2018-03-23] MEDS: ATORVASTATIN 20 MG TAB PO SCH (20:34)
[2018-03-23] MEDS: DOXAZOSIN MESYLATE 1 MG TAB PO SCH (20:35)
[2018-03-23] MEDS: LEVEMIR (INSULIN DETEMIR) 1 UNITS/0.01ML SC SCH (20:36)
[2018-03-23] MEDS: SLF 3 ML SYR IV SCH (21:15)
[2018-03-23] MEDS ORDERED: LOSARTAN 50 MG TAB PO SCH (21:28)
[2018-03-23] MEDS ORDERED: LOSARTAN 50 MG TAB PO ONE (21:30)
--- NOTE | 2018-03-23 21:50 | IPN ---
DATE: 03/23/2018 CARDIOLOGY PROGRESS NOTE: INDICATION: Cardiology progress note. SUBJECTIVE: According to the patient, he has been up walking with assistance. Does admit to slight positional lightheadedness but this is transient. Denies any chest discomfort or shortness of breath. Remains unaware of his heart action. OBJECTIVE: Obese, slightly barrel-chested, elderly male lying comfortably flat, HR 60 bpm and regular, blood pressure 148/76 supine, 152/72 standing, respiratory rate 16 per minute, O2 saturation 95% on room air. Afebrile. No current pallor or cyanosis. Trachea midline. Neck veins appeared to be at the level of the sternal angle. Increased anteroposterior chest diameter with dry left subclavian pacemaker incision dressing. Fairly good air entry over both lung hay with no inspiratory rales. Slight prolongation of expiration but no audible wheeze. Apical impulse remains not palpable. No dependent edema. GEOLOGICAL SPECIALIST: This shows for the most part consistent AV sequentially paced rhythm. LABORATORY DATA: Blood work today shows a hemoglobin of 10.3 with normal white blood cell count and platelet count. Iron studies were actually normal. Electrolytes were imbalance with BUN down to 10, creatinine 0.77, fasting glucose 100. IMPRESSION/PLAN: 1. Coronary artery disease ([place] vessel)/ prior non-Q-wave myocardial infarction (LA): On his current level of activity, has been free of symptomatic myocardial ischemia. EKG taken earlier today shows consistent AV sequentially paced rhythm with paced QRS complexes that were unchanged from a previous study. At this point, the patient will continue on protective combination carvedilol, losartan, amlodipine, isosorbide mononitrate, low-dose aspirin and atorvastatin. 2. Hypertensive heart disease (benign without heart failure): Remains free of symptom or sign of congestion. His systolic blood pressure remains slightly elevated despite our medication adjustments. His potassium has improved with KCl supplement and initiating losartan therapy. At this point, I have ordered an additional dose of losartan and will continue his losartan 100 mg by mouth daily with carvedilol 25 mg by mouth twice a day and amlodipine 10 mg daily. Continues on Cardura as well for his prostate problems. 3. AV block/dual-chamber pacemaker in situ: His device continues to be functioning well. Electrocardiogram confirms consisting pacing. He has a left forearm IV site that appears to be infected. With his new transvenous pacing system, I have elected to prescribe dicloxacillin 250 mg by mouth four times a day for 7 days to minimize his risk of infection of his device. 4. 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 Gallegos measure would be continued optimal blood pressure control. I anticipate he should be able to be discharged tomorrow. I would not plan on resuming Plavix. Would continue aspirin antiplatelet therapy alone. He has a followup appointment for a clinic visit, blood pressure (BP) check, wound check and staple removal in my office for March 29 at 2 p.m. RICKY
[2018-03-23] MEDS: DICLOXACILLIN 250 MG CAP PO SCH (22:18)
[2018-03-24 04:00] VITALS: BP 147/72
[2018-03-24 06:00] LABS: HEMATOCRIT 31.2 % (42.0-52.0); MEAN CORPUSCULAR HEMOGLOBIN 29.9 pg (27.0-33.0); MEAN CORPUSCULAR HGB CONC 32.1 g/dl (32.0-36.5); MEAN CORPUSCULAR VOLUME 93.1 fl (80.0-96.0); PLATELET COUNT, AUTOMATED 230 10^3/uL (150-450); RED BLOOD COUNT 3.35 10^6/uL (4.30-6.10); WHITE BLOOD COUNT 6.8 10^3/uL (4.0-10.0)
[2018-03-24] MEDS: SLF 3 ML SYR IV SCH ×2 (06:00→12:06)
[2018-03-24 06:42] LABS: CALCIUM LEVEL 8.3 MG/DL (8.8-10.2); CARBON DIOXIDE LEVEL 27 MEQ/L (21-32); CHLORIDE LEVEL 108 MEQ/L (98-107); CREATININE FOR GFR 0.87 MG/DL (0.70-1.30); GLOMERULAR FILTRATION RATE > 60.0 (>35); GLUCOSE, FASTING 123 MG/DL (70-100); MAGNESIUM LEVEL 1.8 MG/DL (1.8-2.4); POTASSIUM SERUM 3.9 MEQ/L (3.5-5.1); SODIUM LEVEL 141 MEQ/L (136-145)
[2018-03-24 06:43] LABS: BLOOD UREA NITROGEN 16 MG/DL (7-18)
[2018-03-24] MEDS ORDERED: AMLO10TA5 PO (07:16)
[2018-03-24] MEDS ORDERED: COZA50TA PO (07:16)
[2018-03-24] MEDS ORDERED: DICL25CA PO (07:16)
[2018-03-24] MEDS: HumaLOG INSULIN (NovoLOG) PER UNIT SC SCH ×2 (07:30→12:00)
[2018-03-24 08:10] VITALS: BP 157/70
[2018-03-24] MEDS: ISOSORBIDE MON. (IMDUR) 30 MG XR TAB PO SCH (08:10)
[2018-03-24] MEDS: ASPIRIN 81 MG ENTERIC TAB PO SCH (08:10)
[2018-03-24] MEDS: PANTOPRAZOLE 40MG TAB (PROTONIX) PO SCH (08:10)
[2018-03-24 08:11] VITALS: BP 157/70
[2018-03-24] MEDS: CARVedilol 12.5 MG TAB PO SCH (08:11)
[2018-03-24] MEDS ORDERED: amLODIPine 10 MG TAB PO SCH (09:00)
[2018-03-24] MEDS: DICLOXACILLIN 250 MG CAP PO SCH ×2 (10:51→15:08)
--- NOTE | 2018-03-24 18:52 | DSES ---
DATE OF ADMISSION: 03/18/2018 DATE OF DISCHARGE: 03/24/2018 PRIMARY CARE PROVIDER: Dr. Santa So PATTERNMAKER METAL BENCH: Dr. Dillon El WOOL SHEARER: Dr. Mathieu Barksdale FINAL DIAGNOSES: Bright red blood per rectum. Second-degree type II atrioventricular (AV) block. Mild troponin elevation. Hypertension. Delirium. Dyslipidemia. Diabetes mellitus. BPH. History of CVA. History of coronary artery disease. Gait instability. HISTORY OF PRESENT ILLNESS: This is an 88-year-old male patient with underlying medical history of chronic obstructive pulmonary disease (COPD), diabetes mellitus, hypertension, CVA, coronary artery disease with stents, last stent year 1999, previous gastrointestinal (GI) bleed on aspirin and Plavix, BPH. Patient presented to the emergency department (ED) with worsening bright red blood per rectum. The patient went to have a bowel movement, had soft stool with blood and denies any abdominal pain, chest pain, shortness of breath, headache, nausea, vomiting, diarrhea or dizziness. The patient reported he never had a colonoscopy. The patient lives at home with daughter living close by. HOSPITAL COURSE: Patient admitted to the hospital on telemetry, was found to have second-degree heart block with intermittent bradycardia type II. Cardiology was consulted, patient's beta keeley was on hold, Pacemaker was placed. The patient's aspirin and Plavix was also on hold. Hemoglobin and hematocrit were monitored closely. The patient's GI bleed progressively was resolved. Bowel prep was done. Patient is status post esophagogastroduodenoscopy (EGD)/colonoscopy with no significant findings but colonoscopy was of poor quality. Physical therapy was done. Troponin mild elevation was noticed on blood work. The case was discussed with Dr. El who believes the troponin elevation is due to demand ischemia due to bradycardia and hypotension. Dr. El recommended outpatient followup for possible cardiac catheterization versus stress test. The case was discussed with Dr. El and Dr. Barksdale. Aspirin was restarted. Plavix was on hold. The patient's home medications for blood pressure, statin were continued. The hospital course was complicated with sundowning requiring one-to-one sitter. Currently the patient is back to baseline, able to ambulate. Discharge was delayed due to gait instability but patient currently passed physical therapy with stable hemoglobin and hematocrit, tolerating oral, ready to be discharged for further care as an outpatient. VITAL SIGNS: Temperature 97, pulse 60, respirations 20, blood pressure 157/70, pulse oximetry 95% on room air. LABORATORY: WBC 6.8, hemoglobin and hematocrit 10 over 31.2, platelets 230. Chemistry: Sodium 141, potassium 3.9, chloride 108, bicarbonate 27, BUN 16, creatinine 0.87. GENERAL: Patient alert, comfortable, in no acute distress. HEENT: Normocephalic, atraumatic. CARDIAC: Pacemaker site clean, dry, and intact. Regular, S1, S2. PULMONARY: Bilateral clear. ABDOMEN: Soft, nontender. EXTREMITIES: No clubbing, cyanosis or edema. DISCHARGE MEDICATIONS: - Norvasc 10 mg by mouth daily - Lipitor 40 mg by mouth nightly - Coreg 25 mg by mouth twice a day - dicloxacillin 250 mg by mouth four times a day - losartan 100 mg by mouth nightly - aspirin 81 mg by mouth daily - doxazosin 2 mg by mouth nightly - Nexium 40 mg by mouth nightly - Levemir 60 units nightly - isosorbide mononitrate 30 mg by mouth daily DISCHARGE INSTRUCTIONS: Fall precaution. Please see primary care provider in 7 days. Please see cardiology in 7 days. Please see GI in 2 weeks. Adjust diabetic medication as per primary. Follow fingersticks. Monitor blood pressure at home. Adjust blood pressure medication as per primary. Restart Plavix as per cardiology and primary care provider. Return to the hospital if symptoms worsen.
== END 2018-03-24 16:06 | disposition home health service (06) | DRG 348 ==
LOC: M ED 09:02 → M ED INP 13:25 → M PCU 21:00
PROVIDERS: ADMIT Internal Medicine; ATTEND Hospitalist
PROC: 0JH606Z Insertion of Pacemaker, Dual Chamber into Chest Subcutaneous Tissue and Fascia, Open Approach (ICD-10-PCS; 2018-03-20)
PROC: 02H63JZ Insertion of Pacemaker Lead into Right Atrium, Percutaneous Approach (ICD-10-PCS; 2018-03-20)
PROC: 02HK3JZ Insertion of Pacemaker Lead into Right Ventricle, Percutaneous Approach (ICD-10-PCS; 2018-03-20)
PROC: 0DBN8ZX Excision of Sigmoid Colon, Via Natural or Artificial Opening Endoscopic, Diagnostic (ICD-10-PCS; 2018-03-21)
PROC: 0DJ08ZZ Inspection of Upper Intestinal Tract, Via Natural or Artificial Opening Endoscopic (ICD-10-PCS; 2018-03-21)
PROC: 0DBL8ZX Excision of Transverse Colon, Via Natural or Artificial Opening Endoscopic, Diagnostic (ICD-10-PCS; 2018-03-21)
PROC: 0W3P7ZZ Control Bleeding in Gastrointestinal Tract, Via Natural or Artificial Opening (ICD-10-PCS; principal; 2018-03-21 13:45)
DX: K62.5 Hemorrhage of anus and rectum (principal); I44.2 Atrioventricular block, complete; I24.8 Other forms of acute ischemic heart disease; D62 Acute posthemorrhagic anemia; J44.9 Chronic obstructive pulmonary disease, unspecified; E11.9 Type 2 diabetes mellitus without complications; I11.9 Hypertensive heart disease without heart failure; R26.89 Other abnormalities of gait and mobility; E78.5 Hyperlipidemia, unspecified; N40.0 Benign prostatic hyperplasia without lower urinary tract symptoms; I25.10 Atherosclerotic heart disease of native coronary artery without angina pectoris; Z86.73 Personal history of transient ischemic attack (TIA), and cerebral infarction without residual deficits; Z95.2 Presence of prosthetic heart valve; I95.9 Hypotension, unspecified; Z79.82 Long term (current) use of aspirin; Z79.899 Other long term (current) drug therapy; Z87.891 Personal history of nicotine dependence; K57.30 Diverticulosis of large intestine without perforation or abscess without bleeding; I25.2 Old myocardial infarction; K44.9 Diaphragmatic hernia without obstruction or gangrene; K64.0 First degree hemorrhoids; D12.5 Benign neoplasm of sigmoid colon; D12.3 Benign neoplasm of transverse colon; I08.0 Rheumatic disorders of both mitral and aortic valves

== ENCOUNTER 2018-09-07 13:14 | Emergency (ER) | payer MEDICARE, MEDICAID ==
[~2018-09-07] VITALS: Ht 167.6 cm; Wt 95.5 kg
[~2018-09-07 13:14] MED LIST changes: -/CLON1TA PO; -/ESOM40CA OR; -/METO25TAB PO; +AMLO10TA5 PO; +AMLO5TAB6 PO; +ASPI81TA26 PO; +ATOR1TAB21 PO; +CLON-412 PO; +CLOP75TA2 PO; +CORE25TA PO; +COUG1LOZ8 PO; +COZA50TA PO; +DICL25CA PO; +DOXA1TAB41 PO; +ISOS1TAB12; +ISOS30TA4 PO; +LEVE1INJ5; +METO1TAB87 PO; +NEXI1CAP3 OR; +NEXI40GR PO; +PRAV40TA2 PO
[2018-09-07 13:15] VITALS: BP 143/63
[2018-09-07] MEDS ORDERED: ALDA25TA2 (13:25)
[2018-09-07] MEDS ORDERED: ISOS60TA2 (13:25)
[2018-09-07] MEDS ORDERED: INSUDET SC (13:52)
== END 2018-09-07 14:14 | disposition home or self-care (01) ==
LOC: M ED 13:14
DX: Z76.0 Encounter for issue of repeat prescription (principal); E11.9 Type 2 diabetes mellitus without complications; I11.9 Hypertensive heart disease without heart failure; I25.10 Atherosclerotic heart disease of native coronary artery without angina pectoris; I25.2 Old myocardial infarction; E78.9 Disorder of lipoprotein metabolism, unspecified; Z86.73 Personal history of transient ischemic attack (TIA), and cerebral infarction without residual deficits; Z79.899 Other long term (current) drug therapy; Z79.4 Long term (current) use of insulin; Z79.82 Long term (current) use of aspirin; Z95.0 Presence of cardiac pacemaker; Z87.891 Personal history of nicotine dependence

== ENCOUNTER 2020-01-14 12:11 | Inpatient (IN) | payer MEDICARE, MEDICAID ==
[~2020-01-14] VITALS: Ht 167.6 cm; Wt 87.0 kg
[~2020-01-14 12:11] MED LIST changes: +ALDA25TA2 PO; -AMLO10TA5 PO; +AMLO1TAB24 PO; +AMLO1TAB25 PO; -AMLO5TAB6 PO; +ISOS1TAB35 PO; +ISOS1TAB36 PO; -ISOS30TA4 PO
[2020-01-14] MEDS ORDERED: DIGO0.123 PO (12:38)
[2020-01-14 12:48] LABS: BASO % 0.2 % (0.0-1.0); EOS # 0.2 10^3/uL (0.0-0.5); EOS % 1.7 % (0.0-3.0); HEMATOCRIT 34.3 % (42.0-52.0); HEMOGLOBIN 11.1 g/dl (13.5-17.5); LYMPH # 2.9 10^3/uL (1.5-5.0); LYMPH % 23.3 % (24.0-44.0); MEAN CORPUSCULAR HEMOGLOBIN 29.5 pg (27.0-33.0); MEAN CORPUSCULAR HGB CONC 32.4 g/dl (32.0-36.5); MEAN CORPUSCULAR VOLUME 91.2 fl (80.0-96.0); MONO # 0.7 10^3/uL (0.0-0.8); MONO % 5.9 % (0.0-5.0); NEUTROPHILS # 8.5 10^3/uL (1.5-8.5); NEUTROPHILS % 68.3 % (36.0-66.0); PLATELET COUNT, AUTOMATED 386 10^3/uL (150-450); RED BLOOD COUNT 3.76 10^6/uL (4.30-6.10); WHITE BLOOD COUNT 12.4 10^3/uL (4.0-10.0)
[2020-01-14 12:58] LABS: INR 1.02; PARTIAL THROMBOPLASTIN TIME 27.5 SECONDS (24.2-38.5); PROTHROMBIN TIME 13.6 SECONDS (12.5-14.3)
[2020-01-14 13:18] LABS: BLOOD UREA NITROGEN 14 MG/DL (7-18); CALCIUM LEVEL 8.6 MG/DL (8.8-10.2); CARBON DIOXIDE LEVEL 26 MEQ/L (21-32); CHLORIDE LEVEL 107 MEQ/L (98-107); CK-MB VALUE MASS < 1.0 NG/ML (<3.6); CPK CREATINE PHOSPHOKINASE 66 U/L (39-308); CREATININE FOR GFR 0.85 MG/DL (0.70-1.30); GLOMERULAR FILTRATION RATE > 60.0 (>35); GLUCOSE, FASTING 257 MG/DL (70-100); MB/CK RELATIVE INDEX 1.52 (< OR =4); POTASSIUM SERUM 4.3 MEQ/L (3.5-5.1); SODIUM LEVEL 139 MEQ/L (136-145); TROPONIN I < 0.02 NG/ML (< 0.10)
--- NOTE | 2020-01-14 14:04 | REP ---
INDICATION: chest pain. COMPARISON: 03/21/2018. TECHNIQUE: SINGLE PORTABLE AP VIEW OF THE CHEST WAS PERFORMED. FINDINGS: There is no acute infiltrate. There is mild cardiomegaly. There is calcification and tortuosity of the thoracic aorta. The mediastinal silhouette is unchanged. Left 2 lead pacemaker is again noted. IMPRESSION: NO ACUTE PULMONARY DISEASE.Mild cardiomegaly. <Electronically signed by Eugenio Fritz > 01/14/20 1400
[2020-01-14 15:12] LABS: ALBUMIN 3.1 GM/DL (3.2-5.2); ALT/SGPT 33 U/L (12-78); BILIRUBIN,DIRECT 0.1 MG/DL (0.0-0.2); BILIRUBIN,TOTAL 0.6 MG/DL (0.2-1.0); NT-PRO BNP 904 PG/ML (<450); TOTAL PROTEIN 7.2 GM/DL (6.4-8.2)
[2020-01-14] MEDS ORDERED: cefTRIAXone SOD 2 GM in D5W MINI-BAG PLUS 50 ML IV ONE (16:15)
[2020-01-14] MEDS ORDERED: ATOR40TA75 PO (16:21)
[2020-01-14] MEDS ORDERED: AMLO1TAB24 PO (16:21)
[2020-01-14] MEDS ORDERED: CARV25TA PO (16:21)
--- NOTE | 2020-01-14 16:25 | REP ---
INDICATION: altered mental status. COMPARISON: Comparison head CT study May 06, 2011.. TECHNIQUE: Helical scanning is acquired. 5 mm axial images were reformatted. Coronal MPR images were generated. FINDINGS: Digital preliminary soap inspector radiograph is unremarkable. The patient is edentulous. On bone window settings there is partial opacification of the ethmoid air cells bilaterally. Visualized paranasal sinuses are otherwise clear. There is vascular calcification in the distal internal carotid arteries. No bony calvarial destructive lesion is seen. On soft tissue window settings, there is mild to moderate generalized volume loss. There is concordant ventricular enlargement. This is slightly more prominent but otherwise unchanged from the 25/01 prior study. There are small old lacunar infarcts in the basal ganglia bilaterally unchanged from the 25/01 study. There is no evidence of intracranial hemorrhage. No extra-axial hematoma is seen. No infarct or midline shift is seen. IMPRESSION: Generalized volume loss, small vessel changes, vascular calcification, and old lacunar infarcts in the basal ganglia bilaterally. No acute intracranial abnormality.. <Electronically signed by Brock Crowder > 01/14/20 [id number]
[2020-01-14] MEDS ORDERED: PATIENT COMMENT (16:26)
[2020-01-14 16:47] LABS: RSV AMPLIFICATION NEGATIVE (NEGATIVE)
[2020-01-14] MEDS ORDERED: GLUCAGON INJ 1MG VIAL SC PRN (17:00)
[2020-01-14] MEDS ORDERED: GLUCOSE 4GM CHEW TABLET PO PRN (17:00)
[2020-01-14] MEDS ORDERED: MAALOX 30 ML SUSP *UDC PO PRN (17:00)
[2020-01-14] MEDS ORDERED: MOM 30ML SUSPENSION UDC PO PRN (17:00)
--- NOTE | 2020-01-14 17:04 | HPEPDOC ---
[facility] Medical History & Physical Date of Admission Jan 14, 2020 Date of Service: Jan 14, 2020 Primary Care Physician: Santa So Attending Physician: LUCIA HO MD History and Physical CHIEF COMPLAINT: Altered Mental Status HISTORY OF PRESENT ILLNESS: The patient is an 89 yo male with a past medical history of COPD, T2DM, HTN, CVA, MS s/p stents, and BPH. The patient was brought in today by his daughter for two days of worsening mental status and confusion. Daughter states that he is declining in mental functioning, becoming increasingly more aggressive, forgetting or refusing to take his medications, and is struggling to care for himself. Dr. El suggested she bring him to the ED for evaluation. In the ED the patient was argumentative with his daughter and triage staff. On interview, the patient admits to seeing blood in his urine and feces today, and intermittent shoulder/chest pain for 20 years. A UA was done in the ED, which revealed cloudy urine with elevated leukocyte esterase, RBCs and WBCs, suggestive of a UTI. The hospitalist team was called and the patient was admitted to the hospital. I called the daughter and spoke with her about the patient's condition over the past year. She states his mental status has deteriorated significantly over the past year and she can no longer care for him. She states the patient often refuses her help. PAST MEDICAL HISTORY: 1. COPD. 2. T2DM. 3. HTN. 4. CVA 2years ago 5. MS s/p stends in 1999 6. GI Bleed 7. BPH PAST SURGICAL HISTORY: 1. Pacemaker placement. 2. Stent placement. 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 Quit 20y ago. Had smoked 3packs a day since he was 16. ETOH: Denies current alcohol, but admits to drinking heavily in the past Illicit drug use: Denies IV drug use: Denies ALLERGIES: Please see below. REVIEW OF SYSTEMS: CONSTITUTIONAL: Denies weight or appetite changes, loss of energy, fevers or chills. HEENT: Denies vision changes, hearing changes, sinus congestion or drip, or trouble swallowing. CARDIOVASCULAR: Denies heart palpitations, leg swelling, RESPIRATORY: Positive for intermittent cough productive of yellow sputum. Denies SOB, wheezing. GASTROINTESTINAL: Positive for blood in the feces today and constipation. Denies diarrhea, nausea or vomiting. GENITOURINARY: Positive for blood in the urine as per HPI. Denies pyuria SKIN: Positive for diffuse itchiness. Denies recent rashes. MUSCULOSKELETAL: Positive for diffuse muscle aches NEUROLOGICAL: Positive for dizziness upon standing too quickly. HOME MEDICATIONS: Please see below. PHYSICAL EXAMINATION: VITAL SIGNS: See below GENERAL APPEARANCE: Patient is an older gentleman who appears his stated age and is poorly groomed. Alert, comfortable lying in bed. HEENT: Normocephalic and atraumatic. PERRLA and EOMI. Mucus membranes are moist. CARDIOVASCULAR: Regular rate and rhythm. Normal S1 and S2. Systolic ejection murmur at the R 2nd ICS. LUNGS: Rhonchi noted in the upper airways. Expiratory wheezing noted mostly in the upper lung hay bilaterally. Chest rise is symmetrical on inhalation. ABDOMEN: Abdomen is soft, nondistended and nontender. Bowel sounds present. No masses or hepatosplenomegaly appreciated. EXTREMITIES: Trace edema is noted in the legs bilaterally. The feet are poorly groomed with thick toenails and a stage 1 ulcer on the plantar of the L foot. NEURO: No focal neurological deficits noted PSYCHIATRIC: AAOx3. Mildly uncooperative. LABORATORY DATA: See below. IMAGING: Jan 13, Chest XR. Dr. Fritz. "NO ACUTE PULMONARY DISEASE. Mild cardiology." Jan 13, Chest CT, Dr. Crowder. "Generalized volume loss, small vessel changes, vascular calcification, and old lacunar infarcts in the basal ganglia bilaterally. No acute intracranial abnormality." MICROBIOLOGY: Please see below. ASSESSMENT: The patient is an 89yo male a past medical history of COPD, T2DM, HTN, CVA, MS s/p stents, and BPH, brought to the ED by his daughter for altered mental status, found to have cloudy urine with leukocyte esterase concerning for UTI, and elevated blood pressure. PLAN: 1. UTI -UA suggests UTI, patient reports gross hematuria today. Mild leukocytosis. -Abx coverage with ceftriaxone 1gm IV daily, day #1 -Urine culture pending. 2. Uncontrolled BP -Daughter reports intermittent compliance with home medications -Continue home meds including amlodipine, spironolactone, carvedilol, and Imdur -Consider adjusting medication dosage if HTN does not resolve with home meds 3. Normocytic Anemia - likely chronic based on prior lab work - hx GI bleed, check stool occult - check iron studies with morning labs 4. Previous MS -Continue home aspirin and Lipitor -unclear due to mental status if patient is having active chest pain, repeat cardiac markers 5. Diabetes mellitus - consistent carb diet, hypoglycemic protocol, fsbs achs with SSI while inpatient - levemir 40 units qhs DVT prophylaxis: Lovenox 40 SC Dispo: Admitted inpatient to PCU, expect greater than two midnights stay. Pending improvement of blood pressure and urine culture for antibiotic selection. Vital Signs Vital Signs Date Time Temp Pulse Resp B/P (MAP) Pulse Ox O2 Delivery O2 Flow Rate FiO2 01/14/20 15:46 16 141/79 (99) 01/14/20 15:41 70 97 01/14/20 12:12 100.0 Room Air Laboratory Data Labs 24H Laboratory Tests 2 01/14/20 12:36: Immature Granulocyte % (Auto) 0.6, Neutrophils (%) (Auto) 68.3H, Lymphocytes (%) (Auto) 23.3L, Monocytes (%) (Auto) 5.9H, Eosinophils (%) (Auto) 1.7, Basophils (%) (Auto) 0.2, Neutrophils # (Auto) 8.5, Lymphocytes # (Auto) 2.9, Monocytes # (Auto) 0.7, Eosinophils # (Auto) 0.2, Basophils # (Auto) 0.0, Nucleated Red Blood Cells % (auto) 0.0, Prothrombin Time 13.6, Prothromb Time International Ratio 1.02, Activated Partial Thromboplast Time 27.5, Anion Gap 6L, Glomerular Filtration Rate > 60.0, Calcium Level 8.6L, Total Bilirubin 0.6, Direct Bi lirubin 0.1, Aspartate Amino Transf (AST/SGOT) 22, Alanine Aminotransferase (ALT/SGPT) 33, Alkaline Phosphatase 86, Total Creatine Kinase 66, Creatine Kinase MB < 1.0, Creatine Kinase MB Relative Index 1.52, Troponin I < 0.02, WA-Byf-L-Type Natriuretic Peptide 904H, Total Protein 7.2, Albumin 3.1L, Albumin/Globulin Ratio 0.8 01/14/20 14:28: Urine Color YELLOW, Urine Appearance CLOUDYH, Urine pH 5.0, Urine Specific [place] 1.015, Urine Protein 1+H, Urine Glucose (UA) 3+H, Urine Ketones NEGATIVE, Urine Blood 3+H, Urine Nitrite NEGATIVE, Urine Bilirubin NEGATIVE, Urine Urobilinogen 0.2, Urine Leukocyte Esterase 3+H, Urine WBC (Auto) 166H, Urine RBC (Auto) TNTCH, Urine Hyaline Casts (Auto) 0, Urine Bacteria (Auto) NEGATIVE, Urine Squamous Epithelial Cells 0, Urine Mucus (Auto) SMALL, Urine Sperm (Auto) 01/14/20 15:55: Coronavirus (COVID-19)(PCR) NEGATIVE, Influenza Type A (RT-PCR) NEGATIVE, Influenza Type B (RT-PCR) NEGATIVE, Respiratory Syncytial Virus (PCR) NEGATIVE CBC/BMP Laboratory Tests 01/14/20 12:36 Microbiology Microbiology 01/14/20 Urine Culture, Received Pending Home Medications Scheduled Amlodipine Besylate (Amlodipine Besylate) 5 Mg Tablet, 5 MG PO DAILY Aspirin (Aspirin EC) 81 Mg Tab, 81 MG PO DAILY Atorvastatin Calcium (Atorvastatin Calcium) 40 Mg Tablet, 40 MG PO QHS PATIENT HAS RX FOR PRAVASTATIN 20MG FROM 01/09/20 BUT HAS NOT PICKED UP YET Carvedilol (Carvedilol) 25 Mg Tablet, 25 MG PO BID Digoxin (Digoxin) 125 Mcg Tablet, 1 TAB PO DAILY Doxazosin Mesylate (Doxazosin Mesylate) 2 Mg Tab, 2 MG PO QHS Esomeprazole Magnesium (Nexium) 40 Mg Gra, 40 MG PO DAILY Insulin Detemir (Levemir) 100 Unit/1 Ml Vial, 60 UNITS SC QHS Isosorbide Mononitrate (Isosorbide Mononitrate ER) 60 Mg Tab.er.24h, 60 MG PO BID Losartan Potassium (Cozaar) 50 Mg Tab, 100 MG PO QHS Spironolactone (Aldactone) 25 Mg Tablet, 12.5 MG PO DAILY Miscellaneous Medications [Patient Comment] UNABLE TO VERIFY LOSARTAN, LEVEMIR, DOXAZOSIN, OR DIGOXIN. HAS NOT FILLED SINCE MAY. WILL CALL MD OFFICE IN AM TO VERIFY CURRENT MEDICATIONS. Allergies Coded Allergies: No Known Drug Allergies (Verified Allergy, Unknown, 09/07/18) A-FIB/CHADSVASC A-FIB History Current/History of A-Fib/PAF?: No GME ATTESTATION GME ATTESTATION My faculty preceptor for this patient encounter was physically present during the encounter and was fully available. All aspects of the patient interview, examination, medical decision making process, and medical care plan development were reviewed and approved by the faculty preceptor. The faculty preceptor is aware and concurs with the plan as stated in the body of this note and will attest to such by his/her cosignature. YNES VIEIRA Jan 14, 2020 17:04 SILVIA JORGE D.O. Jan 14, 2020 17:56
[2020-01-14] MEDS: HumaLOG INSULIN (NovoLOG) PER UNIT SC SCH ×2 (18:35→21:00)
[2020-01-14 19:45] LABS: CK-MB VALUE MASS 1.5 NG/ML (<3.6); DIGOXIN LEVEL 0.1 NG/ML (0.5-2.0); MB/CK RELATIVE INDEX 2.59 (< OR =4)
[2020-01-14] MEDS: ENOXAPARIN 40MG/0.4ML SYRINGE (J1650 PER 10MG) SC SCH (21:00)
[2020-01-14] MEDS: ATORVASTATIN 20 MG TAB PO SCH (21:00)
[2020-01-14] MEDS: CARVedilol 12.5 MG TAB PO SCH (21:13)
[2020-01-14] MEDS: ISOSORBIDE MON. (IMDUR) 60 MG XR TAB PO SCH (21:14)
[2020-01-14] MEDS: LEVEMIR (INSULIN DETEMIR) 1 UNITS/0.01ML SC SCH (21:16)
[2020-01-15 04:00] VITALS: BP 158/75
[2020-01-15 05:56] LABS: BASO % 0.2 % (0.0-1.0); EOS # 0.1 10^3/uL (0.0-0.5); EOS % 0.9 % (0.0-3.0); HEMOGLOBIN 11.2 g/dl (13.5-17.5); LYMPH % 20.7 % (24.0-44.0); MEAN CORPUSCULAR HEMOGLOBIN 30.1 pg (27.0-33.0); MEAN CORPUSCULAR HGB CONC 32.9 g/dl (32.0-36.5); MEAN CORPUSCULAR VOLUME 91.4 fl (80.0-96.0); MONO # 0.6 10^3/uL (0.0-0.8); MONO % 6.3 % (0.0-5.0); NEUTROPHILS # 6.8 10^3/uL (1.5-8.5); NEUTROPHILS % 71.5 % (36.0-66.0); PLATELET COUNT, AUTOMATED 372 10^3/uL (150-450); RED BLOOD COUNT 3.72 10^6/uL (4.30-6.10); WHITE BLOOD COUNT 9.5 10^3/uL (4.0-10.0)
[2020-01-15 06:21] LABS: BLOOD UREA NITROGEN 14 MG/DL (7-18); CALCIUM LEVEL 8.4 MG/DL (8.8-10.2); CARBON DIOXIDE LEVEL 29 MEQ/L (21-32); CHLORIDE LEVEL 110 MEQ/L (98-107); FERRITIN 329 NG/ML (26-388); GLOMERULAR FILTRATION RATE > 60.0 (>35); GLUCOSE, FASTING 92 MG/DL (70-100); IRON (FE) 32 UG/DL (65-175); PERCENT SATURATION 19.8 % (19.7-50.0); POTASSIUM SERUM 3.8 MEQ/L (3.5-5.1); SODIUM LEVEL 143 MEQ/L (136-145); TOTAL IRON BINDING CAPACITY 162 UG/DL (250-450)
[2020-01-15] MEDS: HumaLOG INSULIN (NovoLOG) PER UNIT SC SCH ×4 (07:30→20:43)
[2020-01-15 08:00] VITALS: BP 160/72
--- NOTE | 2020-01-15 08:29 | ECGEPIP ---
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
[2020-01-15] MEDS ORDERED: PREVNAR 13 VACCINE SYRINGE IM ONE (09:00)
[2020-01-15] MEDS ORDERED: FLUBLOK(EGG FREE)(QUAD)INFLUENZA VACC 0.5ML SYRINGE 18YRS & OLDER IM ONE (09:00)
[2020-01-15] MEDS ORDERED: LEVE1INJ5 SC (09:12)
[2020-01-15] MEDS ORDERED: LOSA100T50 PO (09:12)
--- NOTE | 2020-01-15 09:30 | IPNPDOC ---
Text Note Date of Service The patient was seen on 01/15/20. NOTE SUBJECTIVE: The patient reports that he slept well last night, but admits to not remembering being in the ED yesterday and does not know why he is in the hospital. He reports blood in his urine when he peed this morning, denies dysuria, frequency, and urgency. Reports chronic constipation. He denies nausea or vomiting. He continues to exhibit confusion, despite being oriented x3, and his history is unreliable. OBJECTIVE: VITALS: See below GENERAL: Patient appears his stated age. He is sitting comfortable in his chair. HEENT: Normocephalic, atraumatic. Mucus membranes moist. PERRLA. EOMI. CV: Regular rate and rhythm. Normal S1 and S2. Systolic ejection murmur at the R 2nd ICS. LUNGS: Expiratory wheezing is noted in the upper lung hay bilaterally. Chest rise is symmetrical on inhalation. ABDOMEN: Abdomen is soft, nontender and nondistended. No masses or hepatosplenomegaly appreciated. EXTREMITIES: Trace edema is noted in the legs bilaterally. The feet are poorly groomed with thick toenails and a stage 1 ulcer on the plantar of the L foot. NEURO: No focal deficits noted. PSYCH: Patient is alert and oriented to person, place, and time. Normal mood an affect. Mildly cooperative. ASSESSMENT/PLAN: The patient is an 89yo male who was brought to the ED by his daughter for past medical history of COPD, T2DM, HTN, CVA, PR s/p stents, and BPH, brought to the ED by his daughter for altered mental status, found to have cloudy urine with leukocyte esterase concerning for UTI, and elevated blood pressure. # UTI -UA suggests UTI, patient reports gross hematuria today. -Abx coverage with ceftriaxone 1gm IV daily, day #2 -Urine culture pending. Blood cultures x2 pending # Uncontrolled BP -Daughter reports intermittent compliance with home medications -Continue home meds, including amlodipine, spironolactone, carvedilol, and Imdur -Consider adjusting medication dosage if HTN does not resolve with home meds #Altered mental status - 2/2 toxic metabolic encephalopathy from UTI vs hypertensive crisis vs worsening dementia - continue to monitor while treating UTI and blood pressure - PFS consulted for possible placement vs home care # Normocytic Anemia - likely chronic based on prior lab work - history of GI bleed, check stool occult - Iron studies show low iron and TIB, but high-normal ferritin, suggesting anemia of chronic disease. # Hx of PR -Continue home aspirin and Lipitor -Cardiac markers x2 are negative # Diabetes mellitus - consistent carb diet, hypoglycemic protocol, fsbs achs with SSI while inpatient - levemir 40 units qhs DVT prophylaxis: Lovenox 40 SC Dispo: pending improvement of blood pressure and urine culture results VS,Fishbone, I+O VS, Fishbone, I+O Laboratory Tests 01/14/20 12:36 01/15/20 05:36 Vital Signs Date Time Temp Pulse Resp B/P (MAP) Pulse Ox O2 Delivery O2 Flow Rate FiO2 01/15/20 08:00 97.1 62 20 160/72 (101) 98 Room Air I&O- Last 24 Hours up to 6 AM 01/15/20 06:00 Intake Total 50 ml Output Total 950 ml Balance -900 ml GME ATTESTATION GME ATTESTATION My faculty preceptor for this patient encounter was physically present during the encounter and was fully available. All aspects of the patient interview, examination, medical decision making process, and medical care plan development were reviewed and approved by the faculty preceptor. The faculty preceptor is aware and concurs with the plan as stated in the body of this note and will attest to such by his/her cosignature. ATTENDING NOTE I, Sukumar Latif MD, have independently examined this patient and performed my ow n physical exam, as well as reviewed the documentation and edited where necessary. I have discussed in detail with the resident / student the findings and plan of treatment as documented by the resident / student and edited their note. I agree with their findings and treatment plan and have edited their documentation. YNES VIEIRA Jan 15, 2020 09:30 SILVIA JORGE D.O. Jan 15, 2020 19:26 SUKUMAR LATIF MD Jan 27, 2020 12:57
[2020-01-15] MEDS: amLODIPine 5 MG TAB PO SCH (10:05)
[2020-01-15] MEDS: ASPIRIN 81 MG ENTERIC TAB PO SCH (10:05)
[2020-01-15] MEDS: CARVedilol 12.5 MG TAB PO SCH ×2 (10:05→20:41)
[2020-01-15] MEDS: SPIRONOLACTONE 12.5MG PER 1/2 TABLET PO SCH (10:05)
[2020-01-15] MEDS: ISOSORBIDE MON. (IMDUR) 60 MG XR TAB PO SCH ×2 (10:06→20:41)
[2020-01-15 12:00] VITALS: BP 126/72
[2020-01-15 16:00] VITALS: BP 160/80
[2020-01-15] MEDS: cefTRIAXone SOD 1 GM in D5W MINI-BAG PLUS 50 ML IV SCH (17:09)
[2020-01-15 20:00] VITALS: BP 145/73
[2020-01-15] MEDS: ATORVASTATIN 20 MG TAB PO SCH (20:40)
[2020-01-15] MEDS: ENOXAPARIN 40MG/0.4ML SYRINGE (J1650 PER 10MG) SC SCH (20:42)
[2020-01-15] MEDS: LEVEMIR (INSULIN DETEMIR) 1 UNITS/0.01ML SC SCH (20:43)
[2020-01-15] MEDS ORDERED: LORazepam 2 MG/ML VIAL IM STA (23:50)
--- NOTE | 2020-01-16 03:34 | IPNPDOC ---
Date Seen The patient was seen on 01/16/20. Progress Note INTERIM PROGRESS NOTE I was paged by nursing (CHERRY Ventura) at 0300 that patient had fallen in his room. Earlier in the evening (2200) nursing (CHERRY Nickerson) had expressed concern about patient becoming more active, trying to leave his room, escalating and becoming more aggressive when asked if he would like to sit or get into bed. I requested that a sitter be placed in his room but was told that there was not a sitter available. I discussed the case with nursing supervisor home energy consultant, expressing my concern that chemically sedating the patient places him at risk for falls and that he would need a sitter by any means. I wrote for the patient to have Ramelteon to help him sleep but he refused. At 0000, Nursing again paged reporting increased aggression, patient pacing the hallways, not settling down. Due to the lack of a sitter I opted to give him IM Ativan 2mg IV STAT. Nursing reports subsequently the patient slept for two hours. Patient was on careview. At 0300 nursing was alerted to bed alarm and found patient had fallen in his room in a pool of urine next to his bed. Careview alert was reportedly delayed. Patient was examined with no obvious injuries, not complaining of any pain. Vitals at that time noted as BP 142/68, HR 72, RR 16, O2 95% RA, T 98.8. I determined imaging not indicated from this event. Nursing was encouraged to watch patient closely and continue to attempt to get a sitter to be with the patient. VS, I&O, 24H, Fishbone Vital Signs/I&O Vital Signs Date Time Temp Pulse Resp B/P (MAP) Pulse Ox O2 Delivery O2 Flow Rate FiO2 01/15/20 20:41 145/73 01/15/20 20:00 97.5 60 18 94 Room Air I&O- Last 24 Hours up to 6 AM 01/16/20 06:00 Intake Total 1070 ml Output Total 650 ml Balance 420 ml Laboratory Data 24H LABS Laboratory Tests 2 01/15/20 05:36: Immature Granulocyte % (Auto) 0.4, Neutrophils (%) (Auto) 71.5H, Lymphocytes (%) (Auto) 20.7L, Monocytes (%) (Auto) 6.3H, Eosinophils (%) (Auto) 0.9, Basophils (%) (Auto) 0.2, Neutrophils # (Auto) 6.8, Lymphocytes # (Auto) 2.0, Monocytes # (Auto) 0.6, Eosinophils # (Auto) 0.1, Basophils # (Auto) 0.0, Nucleated Red Blood Cells % (auto) 0.0, Anion Gap 4L, Glomerular Filtration Rate > 60.0, Calcium Level 8.4L, Magnesium Level 2.0, Iron Level 32L, Total Iron Binding Capacity 162L, Transferrin % Saturation 19.8, Ferritin 329 01/15/20 11:51: Bedside Glucose (Misc Panel) 99 01/15/20 16:47: Bedside Glucose (Misc Panel) 201H 01/15/20 20:28: Bedside Glucose (Misc Panel) 254H CBC/BMP Laboratory Tests 01/15/20 05:36 Microbiology Microbiology 01/15/20 Blood Culture, Received Pending 01/15/20 Blood Culture, Received Pending 01/14/20 Urine Culture - Final, Complete Aerococcus Urinae GME ATTESTATION GME ATTESTATION My faculty preceptor for this patient encounter was physically present during the encounter and was fully available. All aspects of the patient interview, examination, medical decision making process, and medical care plan development were reviewed and approved by the faculty preceptor. The faculty preceptor is aware and concurs with the plan as stated in the body of this note and will attest to such by his/her cosignature. NOVA LAGOS MD Jan 16, 2020 03:34
[2020-01-16 04:00] VITALS: BP 164/80
[2020-01-16 06:29] LABS: BASO % 0.3 % (0.0-1.0); EOS # 0.2 10^3/uL (0.0-0.5); EOS % 2.1 % (0.0-3.0); HEMATOCRIT 33.3 % (42.0-52.0); LYMPH # 2.9 10^3/uL (1.5-5.0); LYMPH % 30.5 % (24.0-44.0); MEAN CORPUSCULAR HEMOGLOBIN 29.8 pg (27.0-33.0); MEAN CORPUSCULAR VOLUME 90.2 fl (80.0-96.0); MONO # 0.7 10^3/uL (0.0-0.8); MONO % 7.5 % (0.0-5.0); NEUTROPHILS # 5.7 10^3/uL (1.5-8.5); NEUTROPHILS % 59.1 % (36.0-66.0); PLATELET COUNT, AUTOMATED 417 10^3/uL (150-450); RED BLOOD COUNT 3.69 10^6/uL (4.30-6.10); WHITE BLOOD COUNT 9.6 10^3/uL (4.0-10.0)
[2020-01-16 07:00] LABS: BLOOD UREA NITROGEN 18 MG/DL (7-18); CALCIUM LEVEL 8.9 MG/DL (8.8-10.2); CARBON DIOXIDE LEVEL 28 MEQ/L (21-32); CHLORIDE LEVEL 109 MEQ/L (98-107); CREATININE FOR GFR 0.82 MG/DL (0.70-1.30); GLOMERULAR FILTRATION RATE > 60.0 (>35); GLUCOSE, FASTING 40 MG/DL (70-100); POTASSIUM SERUM 3.4 MEQ/L (3.5-5.1); SODIUM LEVEL 140 MEQ/L (136-145)
[2020-01-16] MEDS: HumaLOG INSULIN (NovoLOG) PER UNIT SC SCH ×4 (07:30→20:58)
[2020-01-16] MEDS: DEXTROSE 50% 50 ML SYRINGE IV PRN (07:47)
[2020-01-16 08:00] VITALS: BP 172/76
[2020-01-16] MEDS: ASPIRIN 81 MG ENTERIC TAB PO SCH (08:22)
[2020-01-16] MEDS: ISOSORBIDE MON. (IMDUR) 60 MG XR TAB PO SCH ×2 (08:23→21:56)
[2020-01-16] MEDS: CARVedilol 12.5 MG TAB PO SCH ×2 (08:24→21:58)
[2020-01-16] MEDS: SPIRONOLACTONE 12.5MG PER 1/2 TABLET PO SCH (08:24)
[2020-01-16] MEDS: amLODIPine 5 MG TAB PO SCH (08:24)
[2020-01-16 08:26] LABS: MAGNESIUM LEVEL 2.2 MG/DL (1.8-2.4)
[2020-01-16] MEDS ORDERED: POTASSIUM CHLORIDE 10 MEQ SR TABLET PO ONE (09:00)
--- NOTE | 2020-01-16 10:28 | REP ---
INDICATION: fall, right sided pain. COMPARISON: None. TECHNIQUE: There are five views. FINDINGS: There is demineralization. Vertebral body heights and alignment are normal. There is mild disc space narrowing throughout the lumbar spine with small anterior osteophytes compatible with multilevel degenerative disc disease. There is mild scoliosis convex left at L4-5. The pedicles are unremarkable. The facets demonstrate mild osteoarthritis. There is questionable spondylolysis at L5 on the left. There is no spondylolysis on the right. There is no spondylolisthesis. IMPRESSION: There is no compression deformity or listhesis. There is mild scoliosis convex left at L4-5. Facet osteoarthritis. Questionable L5 spondylolysis without spondylolisthesis on the left. Mild multilevel degenerative disc disease. <Electronically signed by Eugenio Vela > 01/16/20 1024
--- NOTE | 2020-01-16 10:32 | REP ---
INDICATION: fall, right sided pain. COMPARISON: Abdomen and pelvis CT dated 03/18/2018. TECHNIQUE: Single AP view FINDINGS: No pelvic fracture is identified. The right and left hip articulations are unremarkable. The sacroiliac articulations are unremarkable. There are no calcifications or foreign bodies. IMPRESSION: No pelvic fracture. <Electronically signed by Eugenio Vela > 01/16/20 1027
--- NOTE | 2020-01-16 10:51 | IPNPDOC ---
Text Note Date of Service The patient was seen on 01/16/20. NOTE SUBJECTIVE: Patient was seen and examined this morning at bedside. He was noted to have some aggression overnight and received 2mg IV Ativan. He subsequently had a fall with no obvious injuries noted This morning he appears much more sedated than his baseline. He reports right sided low back pain and appears to be in pain when moving around in bed. OBJECTIVE: VITAL SIGNS: See below GENERAL: Alert, comfortable, in no acute distress, lying in bed with eyes closed, easily awoken HEENT: Normocephalic, atraumatic, PERRLA, EOMI, moist mucous membranes NECK: Supple, trachea midline CARDIOVASCULAR: Regular rate and rhythm, normal S1 and S2. No murmurs, rubs, or gallops RESPIRATORY: Clear to auscultation bilaterally with equal air entry bilaterally. No wheezing, rhonchi, or rales. ABDOMEN: Soft, nontender, nondistended, bowel sounds present, no masses or hepatosplenomegaly appreciated EXTREMITIES: Trace edema in bilateral lower extremities. Pulses 2+/4 in bilateral upper and lower extremities SKIN: [place], warm, dry. No bruising noted on his back or right side. MUSCULOSKELETAL: No spinous process tenderness noted. Tenderness to palpation over the right ileal crest. NEUROLOGIC: Alert and oriented x3 to person, place and time. No focal deficits appreciated PSYCHIATRIC: Appears slightly sedated this morning ASSESSMENT/PLAN: 89yo male who was brought to the ED by his daughter for past medical history of COPD, T2DM, HTN, CVA, [place] s/p stents, and BPH, brought to the ED by his daughter for altered mental status, found to have cloudy urine with leukocyte esterase concerning for UTI, and elevated blood pressure. # UTI -UA suggests UTI, patient reports gross hematuria today. -Abx coverage with ceftriaxone 1gm IV daily, day #3 -Urine culture grew Aerococcus urinae. Blood cultures x2 pending # Uncontrolled BP -Daughter reports intermittent compliance with home medications -Continue home meds, including amlodipine, spironolactone, carvedilol, and Imdur -Consider adjusting medication dosage if HTN does not resolve with home meds #Altered mental status with aggressive behavior - 2/2 toxic metabolic encephalopathy from UTI vs hypertensive crisis vs worsening dementia - continue to monitor while treating UTI and blood pressure - episode of aggression overnight, received 2mg IV Ativan, now more sedated - continue with sitter for episode of aggressive behavior - PFS consulted for possible placement vs home care # Fall with subsequent R low back pain - lumbar spine XR and pelvis XR ordered to r/o fracture - continue tylenol and k pad for pain # Normocytic Anemia - likely chronic based on prior lab work - history of GI bleed, check stool occult - Iron studies suggesting anemia of chronic disease - monitor H/H daily and transfuse if indicated # Diabetes mellitus - consistent carb diet, hypoglycemic protocol, fsbs achs with SSI while inpatient - levemir 40 units qhs # Hx of [place] -Continue home aspirin and Lipitor -Cardiac markers x2 are negative DVT prophylaxis: Lovenox 40 SC Disposition: possible placement vs home care VS,Fishbone, I+O VS, Fishbone, I+O Laboratory Tests 01/16/20 05:59 Vital Signs Date Time Temp Pulse Resp B/P (MAP) Pulse Ox O2 Delivery O2 Flow Rate FiO2 01/16/20 08:23 172/76 01/16/20 08:00 96.4 60 24 95 Room Air I&O- Last 24 Hours up to 6 AM 01/16/20 06:00 Intake Total 1370 ml Output Total 650 ml Balance 720 ml SILVIA JORGE D.O. Jan 16, 2020 10:51
[2020-01-16 12:00] VITALS: BP 161/74
[2020-01-16 16:00] VITALS: BP 158/64
[2020-01-16] MEDS: cefTRIAXone SOD 1 GM in D5W MINI-BAG PLUS 50 ML IV SCH (17:34)
[2020-01-16] MEDS: ACETAMINOPHEN TAB 650MG DOSE (2X325MG) PO PRN (17:35)
[2020-01-16 20:00] VITALS: BP 132/59
[2020-01-16] MEDS: ATORVASTATIN 20 MG TAB PO SCH ×2 (21:00→21:55)
[2020-01-16] MEDS: LEVEMIR (INSULIN DETEMIR) 1 UNITS/0.01ML SC SCH (21:00)
[2020-01-16] MEDS: RAMELTEON 8 MG TAB (ROZEREM) PO PRN (21:54)
[2020-01-16] MEDS: ENOXAPARIN 40MG/0.4ML SYRINGE (J1650 PER 10MG) SC SCH (21:55)
[2020-01-16] MEDS ORDERED: LEVEMIR (INSULIN DETEMIR) 1 UNITS/0.01ML SC ONE (22:00)
[2020-01-17] VITALS: BP 112/67
[2020-01-17 04:00] VITALS: BP 135/69
[2020-01-17 05:58] LABS: BASO % 0.2 % (0.0-1.0); EOS # 0.2 10^3/uL (0.0-0.5); EOS % 2.1 % (0.0-3.0); HEMATOCRIT 30.4 % (42.0-52.0); HEMOGLOBIN 9.9 g/dl (13.5-17.5); LYMPH # 2.6 10^3/uL (1.5-5.0); LYMPH % 32.2 % (24.0-44.0); MEAN CORPUSCULAR HEMOGLOBIN 29.9 pg (27.0-33.0); MEAN CORPUSCULAR HGB CONC 32.6 g/dl (32.0-36.5); MEAN CORPUSCULAR VOLUME 91.8 fl (80.0-96.0); MONO # 0.6 10^3/uL (0.0-0.8); NEUTROPHILS # 4.7 10^3/uL (1.5-8.5); NEUTROPHILS % 58.1 % (36.0-66.0); PLATELET COUNT, AUTOMATED 371 10^3/uL (150-450); RED BLOOD COUNT 3.31 10^6/uL (4.30-6.10)
[2020-01-17] MEDS: ACETAMINOPHEN TAB 650MG DOSE (2X325MG) PO PRN (06:13)
[2020-01-17 06:16] LABS: BLOOD UREA NITROGEN 17 MG/DL (7-18); CALCIUM LEVEL 8.1 MG/DL (8.8-10.2); CARBON DIOXIDE LEVEL 27 MEQ/L (21-32); CHLORIDE LEVEL 107 MEQ/L (98-107); CREATININE FOR GFR 0.76 MG/DL (0.70-1.30); GLOMERULAR FILTRATION RATE > 60.0 (>35); GLUCOSE, FASTING 160 MG/DL (70-100); POTASSIUM SERUM 4.4 MEQ/L (3.5-5.1); SODIUM LEVEL 139 MEQ/L (136-145)
[2020-01-17 08:00] VITALS: BP 154/78
[2020-01-17] MEDS: HumaLOG INSULIN (NovoLOG) PER UNIT SC SCH ×4 (09:00→19:48)
[2020-01-17] MEDS: ASPIRIN 81 MG ENTERIC TAB PO SCH (09:01)
[2020-01-17] MEDS: CARVedilol 12.5 MG TAB PO SCH ×2 (09:01→20:18)
[2020-01-17] MEDS: ISOSORBIDE MON. (IMDUR) 60 MG XR TAB PO SCH ×2 (09:01→20:18)
[2020-01-17] MEDS: amLODIPine 5 MG TAB PO SCH (09:02)
[2020-01-17] MEDS: SPIRONOLACTONE 12.5MG PER 1/2 TABLET PO SCH (09:02)
--- NOTE | 2020-01-17 10:15 | IPNPDOC ---
Text Note Date of Service The patient was seen on 01/17/20. NOTE SUBJECTIVE: Patient was seen and examined this morning at bedside. He states his right lower back continues to have some pain, especially when he moves. Otherwise he is feeling well. He still cannot tell me why he came to the hospital. He is oriented to person, place, and time. OBJECTIVE: VITAL SIGNS: See below GENERAL: Alert, comfortable, in no acute distress. HEENT: Normocephalic, atraumatic, EOMI, moist mucous membranes NECK: Supple, trachea midline CARDIOVASCULAR: Regular rate and rhythm, normal S1 and S2. No murmurs, rubs, or gallops RESPIRATORY: Clear to auscultation bilaterally with equal air entry bilaterally. No wheezing, rhonchi, or rales. ABDOMEN: Soft, nontender, nondistended, bowel sounds present, no masses or hep atosplenomegaly appreciated EXTREMITIES: Trace edema in bilateral lower extremities. Pulses 2+/4 in bilateral upper and lower extremities NEUROLOGIC: Alert and oriented x3 to person, place and time. No focal deficits appreciated PSYCHIATRIC: normal mood and affect ASSESSMENT/PLAN: 89 year old male who was brought to the ED by his daughter for past medical history of COPD, T2DM, HTN, CVA, [place] s/p stents, and BPH, brought to the ED by his daughter for altered mental status, found to have cloudy urine with leukocyte esterase concerning for UTI and elevated blood pressure. # UTI -UA suggests UTI. Urine culture grew Aerococcus urinae. -Abx coverage: s/p ceftriaxone IV, now on PO amoxicillin day #4 of 7 - Blood cultures x2 negative at 48 hours # Hypertension -Daughter reports intermittent compliance with home medications -Continue home meds, including amlodipine, spironolactone, carvedilol, and Imdur -Consider adjusting medication dosage if HTN does not resolve with home meds # Altered mental status with aggressive behavior - 2/2 toxic metabolic encephalopathy from UTI vs hypertensive crisis vs worsening dementia - continue to monitor while treating UTI and blood pressure - continue with sitter for episode of aggressive behavior - PFS consulted for possible placement vs home care # Fall with subsequent R low back pain - lumbar spine XR and pelvis XR ordered to r/o fracture - continue tylenol and k pad for pain # Normocytic Anemia - likely chronic based on prior lab work - H/H dropped today, will recheck in the afternoon. - history of GI bleed, check stool occult - Iron studies suggesting anemia of chronic disease - monitor H/H daily and transfuse if indicated # Diabetes mellitus - consistent carb diet, hypoglycemic protocol, fsbs achs with SSI while inpatient - levemir 40 units qhs # Hx of [place] -Continue home aspirin and Lipitor -Cardiac markers x2 are negative DVT prophylaxis: Lovenox 40 SC Disposition: possible placement, PFS consulted Attending note: Patient seen and examined independently. Agree with resident's note. VS,Fishbone, I+O VS, Fishbone, I+O Laboratory Tests 01/17/20 05:36 Vital Signs Date Time Temp Pulse Resp B/P (MAP) Pulse Ox O2 Delivery O2 Flow Rate FiO2 01/17/20 09:02 61 154/78 01/17/20 08:00 98.3 16 95 Room Air I&O- Last 24 Hours up to 6 AM 01/17/20 06:00 Intake Total 360 ml Output Total 650 ml Balance -290 ml SILVIA JORGE D.O. Jan 17, 2020 10:14 LUCIA HO MD Jan 18, 2020 18:04
[2020-01-17] MEDS: AMOXICILLIN 875 MG TAB PO SCH ×2 (10:48→20:17)
[2020-01-17 12:00] VITALS: BP 139/64
[2020-01-17 12:38] LABS: HEMOGLOBIN 10.7 g/dl (13.5-17.5)
[2020-01-17 16:00] VITALS: BP 160/84
[2020-01-17 20:00] VITALS: BP 140/65
[2020-01-17] MEDS: ATORVASTATIN 20 MG TAB PO SCH (20:18)
[2020-01-17] MEDS: ENOXAPARIN 40MG/0.4ML SYRINGE (J1650 PER 10MG) SC SCH (20:19)
[2020-01-17] MEDS: LEVEMIR (INSULIN DETEMIR) 1 UNITS/0.01ML SC SCH (20:26)
[2020-01-18] VITALS: BP 159/74
[2020-01-18] MEDS: ACETAMINOPHEN TAB 650MG DOSE (2X325MG) PO PRN ×2 (01:29→15:50)
[2020-01-18 01:45] VITALS: BP 156/73
[2020-01-18 06:35] VITALS: BP 128/75
[2020-01-18 06:47] LABS: BASO % 0.5 % (0.0-1.0); EOS # 0.2 10^3/uL (0.0-0.5); EOS % 2.9 % (0.0-3.0); HEMATOCRIT 31.3 % (42.0-52.0); HEMOGLOBIN 9.9 g/dl (13.5-17.5); LYMPH # 2.4 10^3/uL (1.5-5.0); LYMPH % 37.3 % (24.0-44.0); MEAN CORPUSCULAR HEMOGLOBIN 29.1 pg (27.0-33.0); MEAN CORPUSCULAR HGB CONC 31.6 g/dl (32.0-36.5); MEAN CORPUSCULAR VOLUME 92.1 fl (80.0-96.0); MONO # 0.5 10^3/uL (0.0-0.8); NEUTROPHILS # 3.3 10^3/uL (1.5-8.5); PLATELET COUNT, AUTOMATED 374 10^3/uL (150-450); WHITE BLOOD COUNT 6.5 10^3/uL (4.0-10.0)
[2020-01-18 07:14] LABS: BLOOD UREA NITROGEN 13 MG/DL (7-18); CALCIUM LEVEL 8.4 MG/DL (8.8-10.2); CARBON DIOXIDE LEVEL 28 MEQ/L (21-32); CHLORIDE LEVEL 107 MEQ/L (98-107); CREATININE FOR GFR 0.72 MG/DL (0.70-1.30); GLOMERULAR FILTRATION RATE > 60.0 (>35); GLUCOSE, FASTING 184 MG/DL (70-100); POTASSIUM SERUM 4.5 MEQ/L (3.5-5.1); SODIUM LEVEL 140 MEQ/L (136-145)
[2020-01-18] MEDS: HumaLOG INSULIN (NovoLOG) PER UNIT SC SCH ×4 (07:30→20:53)
[2020-01-18] MEDS: amLODIPine 5 MG TAB PO SCH (08:31)
[2020-01-18] MEDS: ASPIRIN 81 MG ENTERIC TAB PO SCH (08:31)
[2020-01-18] MEDS: ISOSORBIDE MON. (IMDUR) 60 MG XR TAB PO SCH ×2 (08:32→20:51)
[2020-01-18] MEDS: SPIRONOLACTONE 12.5MG PER 1/2 TABLET PO SCH (08:32)
[2020-01-18] MEDS: CARVedilol 12.5 MG TAB PO SCH ×2 (08:32→20:52)
[2020-01-18] MEDS: AMOXICILLIN 875 MG TAB PO SCH ×2 (08:32→20:51)
--- NOTE | 2020-01-18 10:12 | IPNPDOC ---
Text Note Date of Service The patient was seen on 01/18/20. NOTE SUBJECTIVE: Patient was seen and examined this morning at bedside. He remains somewhat confused about why he is in the hospital and what we are doing for him here. He is oriented to person, place, and time. He continues to have some right low back pain when he moves but denies pain while resting in bed. No additional concerns today. OBJECTIVE: VITAL SIGNS: See below GENERAL: Alert, comfortable, in no acute distress. HEENT: Normocephalic, atraumatic, EOMI, moist mucous membranes NECK: Supple, trachea midline CARDIOVASCULAR: Regular rate and rhythm, normal S1 and S2. No murmurs, rubs, or gallops RESPIRATORY: Clear to auscultation bilaterally with equal air entry bilaterally. No wheezing, rhonchi, or rales. ABDOMEN: Soft, nontender, nondistended, bowel sounds present, no masses or hepatosplenomegaly appreciated EXTREMITIES: Trace edema in bilateral lower extremities. Pulses 2+/4 in bilateral upper and lower extremities NEUROLOGIC: Alert and oriented x3 to person, place and time. No focal deficits appreciated PSYCHIATRIC: normal mood and affect ASSESSMENT/PLAN: 89 year old male who was brought to the ED by his daughter for past medical history of COPD, T2DM, HTN, CVA, [place] s/p stents, and BPH, brought to the ED by his daughter for altered mental status, found to have cloudy urine with leukocyte esterase concerning for UTI and elevated blood pressure. # UTI -UA suggests UTI. Urine culture grew Aerococcus urinae. -Abx coverage: s/p ceftriaxone IV, now on PO amoxicillin day #5 of 7 - Blood cultures x2 negative at 72 hours # Hypertension -Daughter reports intermittent compliance with home medications -Continue home meds, including amlodipine, spironolactone, carvedilol, and Imdur -BP remains somewhat elevated. Will increase amlodipine to 10mg daily # Altered mental status with aggressive behavior - 2/2 toxic metabolic encephalopathy from UTI vs hypertensive crisis vs worsening dementia - continue to monitor while treating UTI and blood pressure - continue with sitter for episode of aggressive behavior - PFS consulted for likely placement # Fall with subsequent R low back pain - lumbar spine XR and pelvis XR negative for fracture - continue tylenol and k pad for pain # Normocytic Anemia - likely chronic based on prior lab work - history of GI bleed, check stool occult - Iron studies suggesting anemia of chronic disease - monitor H/H daily and transfuse if indicated # Diabetes mellitus - consistent carb diet, hypoglycemic protocol, fsbs achs with SSI while inpatient - levemir 40 units qhs # Hx of [place] -Continue home aspirin and Lipitor DVT prophylaxis: Lovenox 40 SC Disposition: possible placement, PFS consulted Attending note: Patient seen and examined independently. Agree with resident's note. VS,Fishbone, I+O VS, Fishbone, I+O Laboratory Tests 01/17/20 12:11 01/18/20 06:31 Vital Signs Date Time Temp Pulse Resp B/P (MAP) Pulse Ox O2 Delivery O2 Flow Rate FiO2 01/18/20 08:32 128/75 01/18/20 08:32 61 01/18/20 06:35 96.5 18 95 Room Air I&O- Last 24 Hours up to 6 AM 01/18/20 06:00 Intake Total 600 ml Output Total 1275 ml Balance -675 ml SILVIA JORGE D.O. Jan 18, 2020 10:12 LUCIA HO MD Jan 18, 2020 18:09
[2020-01-18] MEDS ORDERED: amLODIPine 5 MG TAB PO ONE (10:15)
[2020-01-18 18:00] VITALS: BP 134/51
[2020-01-18 20:00] VITALS: BP 128/55
[2020-01-18] MEDS: ATORVASTATIN 20 MG TAB PO SCH (20:51)
[2020-01-18] MEDS: LEVEMIR (INSULIN DETEMIR) 1 UNITS/0.01ML SC SCH (20:53)
[2020-01-18] MEDS: ENOXAPARIN 40MG/0.4ML SYRINGE (J1650 PER 10MG) SC SCH (20:54)
[2020-01-19 06:06] VITALS: BP 135/62
[2020-01-19] MEDS: HumaLOG INSULIN (NovoLOG) PER UNIT SC SCH ×4 (07:30→20:38)
[2020-01-19 08:11] LABS: BASO % 0.4 % (0.0-1.0); EOS # 0.2 10^3/uL (0.0-0.5); EOS % 2.3 % (0.0-3.0); HEMATOCRIT 34.5 % (42.0-52.0); LYMPH # 2.7 10^3/uL (1.5-5.0); LYMPH % 29.3 % (24.0-44.0); MEAN CORPUSCULAR HEMOGLOBIN 29.2 pg (27.0-33.0); MEAN CORPUSCULAR HGB CONC 31.9 g/dl (32.0-36.5); MEAN CORPUSCULAR VOLUME 91.5 fl (80.0-96.0); MONO # 0.7 10^3/uL (0.0-0.8); MONO % 7.7 % (0.0-5.0); NEUTROPHILS # 5.5 10^3/uL (1.5-8.5); NEUTROPHILS % 59.9 % (36.0-66.0); PLATELET COUNT, AUTOMATED 433 10^3/uL (150-450); RED BLOOD COUNT 3.77 10^6/uL (4.30-6.10); WHITE BLOOD COUNT 9.2 10^3/uL (4.0-10.0)
[2020-01-19 08:35] LABS: BLOOD UREA NITROGEN 13 MG/DL (7-18); CALCIUM LEVEL 8.9 MG/DL (8.8-10.2); CARBON DIOXIDE LEVEL 31 MEQ/L (21-32); CHLORIDE LEVEL 106 MEQ/L (98-107); CREATININE FOR GFR 0.76 MG/DL (0.70-1.30); GLOMERULAR FILTRATION RATE > 60.0 (>35); GLUCOSE, FASTING 56 MG/DL (70-100); POTASSIUM SERUM 4.3 MEQ/L (3.5-5.1); SODIUM LEVEL 142 MEQ/L (136-145)
[2020-01-19] MEDS: SPIRONOLACTONE 12.5MG PER 1/2 TABLET PO SCH (08:50)
[2020-01-19] MEDS: CARVedilol 12.5 MG TAB PO SCH ×2 (08:50→20:47)
[2020-01-19] MEDS: AMOXICILLIN 875 MG TAB PO SCH ×2 (08:50→20:44)
[2020-01-19] MEDS: ASPIRIN 81 MG ENTERIC TAB PO SCH (08:50)
[2020-01-19] MEDS: ISOSORBIDE MON. (IMDUR) 60 MG XR TAB PO SCH ×2 (08:50→20:47)
--- NOTE | 2020-01-19 11:50 | IPNPDOC ---
Text Note Date of Service The patient was seen on 01/19/20. NOTE SUBJECTIVE: Patient seen and examined at bedside. No acute overnight events reported. Patient has no new medical complaints this morning. OBJECTIVE: VITAL SIGNS: See below GENERAL: Alert, comfortable, in no acute distress. HEENT: Normocephalic, atraumatic, EOMI, moist mucous membranes NECK: Supple, trachea midline CARDIOVASCULAR: Regular rate and rhythm, normal S1 and S2. No murmurs, rubs, or gallops RESPIRATORY: Clear to auscultation bilaterally with equal air entry bilaterally. No wheezing, rhonchi, or rales. ABDOMEN: Soft, nontender, nondistended, bowel sounds present, no masses or hepatosplenomegaly appreciated EXTREMITIES: Trace edema in bilateral lower extremities. A/P: 89M with past medical history of COPD, T2DM, HTN, CVA, [place] s/p stents, and BPH, brought to the ED by his daughter for altered mental status, found to have cloudy urine with leukocyte esterase concerning for UTI and elevated blood pressure. # UTI -UA suggests UTI. Urine culture grew Aerococcus urinae. -Abx coverage: s/p ceftriaxone IV, now on PO amoxicillin day #6 of 7 - Blood cultures x2 negative at 72 hours # HTN -Daughter reports intermittent compliance with home medications -Continue home meds, including amlodipine, spironolactone, carvedilol, and Imdur -BP remains somewhat elevated. Will increase amlodipine to 10mg daily # Altered mental status with aggressive behavior - 2/2 toxic metabolic encephalopathy from UTI vs hypertensive crisis vs worsening dementia - continue to monitor while treating UTI and blood pressure - continue with sitter for episode of aggressive behavior - PFS consulted - recs for placement # Fall with subsequent R low back pain - lumbar spine XR and pelvis XR negative for fracture - continue tylenol and k pad for pain # Normocytic Anemia - likely chronic based on prior lab work - history of GI bleed, check stool occult - Iron studies suggesting anemia of chronic disease - monitor H/H daily and transfuse if indicated # Diabetes mellitus - consistent carb diet, hypoglycemic protocol, fsbs achs with SSI while inpatient - levemir 40 units qhs # Hx of [place] -Continue home aspirin and Lipitor DVT prophylaxis: Lovenox 40 SC Disposition: Pending placement VS,Candice, I+O VS, Candice, I+O Laboratory Tests 01/19/20 07:26 Vital Signs Date Time Temp Pulse Resp B/P (MAP) Pulse Ox O2 Delivery O2 Flow Rate FiO2 01/19/20 08:50 61 135/62 01/19/20 06:06 98.6 20 97 Room Air I&O- Last 24 Hours up to 6 AM 01/19/20 06:00 Intake Total 1920 ml Output Total 2250 ml Balance -330 ml LUCIA HO MD Jan 19, 2020 11:50
[2020-01-19 14:00] VITALS: BP 135/79
[2020-01-19] MEDS: LEVEMIR (INSULIN DETEMIR) 1 UNITS/0.01ML SC SCH (20:44)
[2020-01-19] MEDS: ATORVASTATIN 20 MG TAB PO SCH (20:44)
[2020-01-19] MEDS: ENOXAPARIN 40MG/0.4ML SYRINGE (J1650 PER 10MG) SC SCH (20:48)
[2020-01-19 22:00] VITALS: BP 137/62
[2020-01-20 06:00] VITALS: BP 163/76
[2020-01-20] MEDS: HumaLOG INSULIN (NovoLOG) PER UNIT SC SCH ×4 (07:30→20:35)
[2020-01-20] MEDS ORDERED: LOSARTAN 50MG TABLET PO SCH (09:00)
[2020-01-20] MEDS: ASPIRIN 81 MG ENTERIC TAB PO SCH (09:38)
[2020-01-20] MEDS: AMOXICILLIN 875 MG TAB PO SCH ×2 (09:38→20:33)
[2020-01-20] MEDS: SPIRONOLACTONE 12.5MG PER 1/2 TABLET PO SCH (09:38)
[2020-01-20] MEDS: CARVedilol 12.5 MG TAB PO SCH ×2 (09:39→20:36)
[2020-01-20] MEDS: ISOSORBIDE MON. (IMDUR) 60 MG XR TAB PO SCH ×2 (09:40→20:36)
--- NOTE | 2020-01-20 12:20 | IPNPDOC ---
Text Note Date of Service The patient was seen on 01/20/20. NOTE SUBJECTIVE: Patient seen and examined at bedside. No acute overnight events reported. Patient has no new medical complaints this morning. OBJECTIVE: VITAL SIGNS: See below GENERAL: Alert, comfortable, in no acute distress. HEENT: NC/AT, EOMI, moist mucous membranes NECK: Supple, trachea midline CARDIOVASCULAR: +S1S2, RRR RESPIRATORY: CTA B/L ABDOMEN: soft, NT, ND, +BS EXTREMITIES: Trace edema in bilateral lower extremities. A/P: 89M with past medical history of COPD, T2DM, HTN, CVA, [place] s/p stents, and BPH, b rought to the ED by his daughter for altered mental status, found to have cloudy urine with leukocyte esterase concerning for UTI and elevated blood pressure. # UTI -UA suggests UTI. Urine culture grew Aerococcus urinae. -Abx coverage: s/p ceftriaxone IV, now on PO amoxicillin day #7 of 7 - Blood cultures x2 negative at 5 days # HTN -Daughter reports intermittent compliance with home medications -Continue home meds, including amlodipine, spironolactone, carvedilol, losartan and Imdur -BP remains somewhat elevated. Will increase amlodipine to 10mg daily # Altered mental status with aggressive behavior - 2/2 toxic metabolic encephalopathy from UTI vs hypertensive crisis vs worsening dementia - continue to monitor while treating UTI and blood pressure - continue with sitter for episode of aggressive behavior - PFS consulted - recs for placement # Fall with subsequent R low back pain - lumbar spine XR and pelvis XR negative for fracture - continue tylenol and k pad for pain # Normocytic Anemia - likely chronic based on prior lab work - history of GI bleed, check stool occult - Iron studies suggesting anemia of chronic disease - monitor H/H daily and transfuse if indicated # Diabetes mellitus - consistent carb diet, hypoglycemic protocol, fsbs achs with SSI while inpatient - levemir 40 units qhs # CAD/[place] -Continue home aspirin and Lipitor DVT prophylaxis: Lovenox 40 SC Disposition: Pending placement VS,Fishbone, I+O VS, Fishbone, I+O Vital Signs Date Time Temp Pulse Resp B/P (MAP) Pulse Ox O2 Delivery O2 Flow Rate FiO2 01/20/20 09:40 163/76 01/20/20 09:39 60 01/20/20 06:00 97.9 16 98 Room Air I&O- Last 24 Hours up to 6 AM 01/20/20 06:00 Intake Total 1270 ml Output Total 1050 ml Balance 220 ml LUCIA HO MD Jan 20, 2020 12:20
[2020-01-20 14:00] VITALS: BP_SYST 101; BP_SYST 139; BP_DIAS 57; BP_DIAS 89
[2020-01-20] MEDS: ATORVASTATIN 20 MG TAB PO SCH (20:33)
[2020-01-20] MEDS: RAMELTEON 8 MG TAB (ROZEREM) PO PRN (20:33)
[2020-01-20] MEDS: ACETAMINOPHEN TAB 650MG DOSE (2X325MG) PO PRN (20:34)
[2020-01-20] MEDS: ENOXAPARIN 40MG/0.4ML SYRINGE (J1650 PER 10MG) SC SCH (20:34)
[2020-01-20] MEDS: LEVEMIR (INSULIN DETEMIR) 1 UNITS/0.01ML SC SCH (20:35)
[2020-01-20 22:00] VITALS: BP 124/70
[2020-01-21 06:00] VITALS: BP 95/55
[2020-01-21 08:09] LABS: BASO % 0.2 % (0.0-1.0); EOS # 0.1 10^3/uL (0.0-0.5); EOS % 1.4 % (0.0-3.0); HEMATOCRIT 32.7 % (42.0-52.0); HEMOGLOBIN 10.4 g/dl (13.5-17.5); LYMPH # 2.5 10^3/uL (1.5-5.0); LYMPH % 28.8 % (24.0-44.0); MEAN CORPUSCULAR HEMOGLOBIN 29.5 pg (27.0-33.0); MEAN CORPUSCULAR HGB CONC 31.8 g/dl (32.0-36.5); MEAN CORPUSCULAR VOLUME 92.9 fl (80.0-96.0); MONO # 0.7 10^3/uL (0.0-0.8); MONO % 7.6 % (0.0-5.0); NEUTROPHILS # 5.4 10^3/uL (1.5-8.5); NEUTROPHILS % 61.7 % (36.0-66.0); PLATELET COUNT, AUTOMATED 391 10^3/uL (150-450); RED BLOOD COUNT 3.52 10^6/uL (4.30-6.10); WHITE BLOOD COUNT 8.8 10^3/uL (4.0-10.0)
[2020-01-21 08:55] LABS: BLOOD UREA NITROGEN 26 MG/DL (7-18); CALCIUM LEVEL 8.2 MG/DL (8.8-10.2); CARBON DIOXIDE LEVEL 29 MEQ/L (21-32); CHLORIDE LEVEL 107 MEQ/L (98-107); GLOMERULAR FILTRATION RATE > 60.0 (>35); GLUCOSE, FASTING 108 MG/DL (70-100); MAGNESIUM LEVEL 2.1 MG/DL (1.8-2.4); POTASSIUM SERUM 4.2 MEQ/L (3.5-5.1); SODIUM LEVEL 140 MEQ/L (136-145)
[2020-01-21] MEDS: SPIRONOLACTONE 12.5MG PER 1/2 TABLET PO SCH (09:07)
[2020-01-21] MEDS: ISOSORBIDE MON. (IMDUR) 60 MG XR TAB PO SCH ×2 (09:10→23:34)
[2020-01-21] MEDS: LOSARTAN 50MG TABLET PO SCH (09:10)
[2020-01-21] MEDS: CARVedilol 12.5 MG TAB PO SCH ×2 (09:11→23:35)
[2020-01-21] MEDS: ASPIRIN 81 MG ENTERIC TAB PO SCH (09:11)
[2020-01-21] MEDS: HumaLOG INSULIN (NovoLOG) PER UNIT SC SCH ×4 (09:12→21:00)
--- NOTE | 2020-01-21 13:18 | IPNPDOC ---
Text Note Date of Service The patient was seen on 01/21/20. NOTE Subjective: Patient is an 89-year-old male with a PMHx of COPD, T2DM, HTN, CVA, [place] s/p stents, and BPH, brought to the ED by his daughter for altered mental status, found to have cloudy urine with leukocyte esterase concerning for UTI and elevated blood pressure.. She was admitted to hospital service for further evaluation and treatment. Patient was seen and examined at the bedside. Currently denies any chest pain, shortness breath, palpitations. Reports that he is frustrated that he cannot get out of bed on his own advise him that physical therapy will continue to work with him. Objective: Vitals (See below) General: Lying in bed, no acute distress, comfortable, Awake / Alert HEENT: [place], AT CVS: RRR, +S1S2 Lungs: Fair air entry b/l, -w/r/r Abdomen: Soft, ND, NT Extremities: No evidence of edema, - Calf tenderness Assessment and plan: UTI - UA 01/13: suggests UTI; Urine culture 01/13: Aerococcus urinae - s/p ceftriaxone IV; s/p PO amoxicillin course of 7 days - Blood cultures x2 negative at 5 days HTN - Daughter reports intermittent compliance with home medications - BP well controlled - c/w Amlodipine, Spironolactone, Imdur, adjusted dose of Losartan Altered mental status with aggressive behavior - 2/2 toxic metabolic encephalopathy from UTI vs hypertensive crisis vs worsening dementia - s/p treatment of UTI; BP well controlled currently - PFS for assisted placement Fall with subsequent R low back pain - lumbar spine XR and pelvis XR negative for fracture - c/w Tylenol and k pad for pain Normocytic Anemia - likely chronic based on prior lab work - History of GI bleed - Stool for occult blood pending - Iron studies suggesting anemia of chronic disease - monitor H/H daily and transfuse if indicated IDDM2 - c/w ISS and Levemir CAD/IN - c/w aspirin and Lipitor DVT prophylaxis - c/w Lovenox Disposition: - Pending placement - Will transition to ALC status VS,Fishbone, I+O VS, Fishbone, I+O Laboratory Tests 01/21/20 07:47 Vital Signs Date Time Temp Pulse Resp B/P (MAP) Pulse Ox O2 Delivery O2 Flow Rate FiO2 01/21/20 09:11 61 121/84 01/21/20 06:00 98.6 18 96 Room Air I&O- Last 24 Hours up to 6 AM 01/21/20 06:00 Intake Total 2019 ml Output Total 750 ml Balance 1270 ml KEVIN AYALA MD Jan 21, 2020 13:18
[2020-01-21 14:00] VITALS: BP 121/57
[2020-01-21] MEDS: LORazepam 2 MG/ML VIAL IV PRN (18:31)
[2020-01-21 22:00] VITALS: BP 146/70
[2020-01-21] MEDS: QUEtiapine FUMARATE 25 MG TAB PO SCH (23:34)
[2020-01-21] MEDS: ATORVASTATIN 20 MG TAB PO SCH (23:34)
[2020-01-21] MEDS: LEVEMIR (INSULIN DETEMIR) 1 UNITS/0.01ML SC SCH (23:36)
[2020-01-21] MEDS: ENOXAPARIN 40MG/0.4ML SYRINGE (J1650 PER 10MG) SC SCH (23:36)
[2020-01-22] MEDS: LORazepam 2 MG/ML VIAL IV PRN (04:32)
[2020-01-22 06:00] VITALS: BP 127/80
[2020-01-22] MEDS: HumaLOG INSULIN (NovoLOG) PER UNIT SC SCH ×4 (07:30→22:48)
[2020-01-22] MEDS: DEXTROSE 50% 50 ML SYRINGE IV PRN (12:28)
[2020-01-22 16:00] VITALS: BP 178/106
[2020-01-22] MEDS: SPIRONOLACTONE 12.5MG PER 1/2 TABLET PO SCH (16:12)
[2020-01-22] MEDS: LOSARTAN 50MG TABLET PO SCH (16:13)
[2020-01-22] MEDS: CARVedilol 12.5 MG TAB PO SCH ×2 (16:13→22:50)
[2020-01-22] MEDS: ASPIRIN 81 MG ENTERIC TAB PO SCH (16:14)
[2020-01-22] MEDS: ISOSORBIDE MON. (IMDUR) 60 MG XR TAB PO SCH ×2 (16:15→22:50)
[2020-01-22 16:26] VITALS: BP 154/69
[2020-01-22] MEDS: QUEtiapine FUMARATE 25 MG TAB PO SCH (18:43)
[2020-01-22 22:00] VITALS: BP 132/55
[2020-01-22] MEDS: ENOXAPARIN 40MG/0.4ML SYRINGE (J1650 PER 10MG) SC SCH (22:47)
[2020-01-22] MEDS: LEVEMIR (INSULIN DETEMIR) 1 UNITS/0.01ML SC SCH (22:48)
[2020-01-22] MEDS: RAMELTEON 8 MG TAB (ROZEREM) PO PRN (22:49)
[2020-01-22] MEDS: ATORVASTATIN 20 MG TAB PO SCH (22:49)
[2020-01-22] MEDS: ACETAMINOPHEN TAB 650MG DOSE (2X325MG) PO PRN (22:49)
[2020-01-23 06:00] VITALS: BP 146/72
[2020-01-23] MEDS: HumaLOG INSULIN (NovoLOG) PER UNIT SC SCH ×4 (07:30→21:00)
[2020-01-23 09:05] LABS: HEMATOCRIT 31.9 % (42.0-52.0); HEMOGLOBIN 10.4 g/dl (13.5-17.5); MEAN CORPUSCULAR HEMOGLOBIN 30.5 pg (27.0-33.0); MEAN CORPUSCULAR HGB CONC 32.6 g/dl (32.0-36.5); MEAN CORPUSCULAR VOLUME 93.5 fl (80.0-96.0); PLATELET COUNT, AUTOMATED 370 10^3/uL (150-450); RED BLOOD COUNT 3.41 10^6/uL (4.30-6.10); WHITE BLOOD COUNT 9.7 10^3/uL (4.0-10.0)
[2020-01-23 09:15] LABS: MAGNESIUM LEVEL 2.3 MG/DL (1.8-2.4); NT-PRO BNP 402 PG/ML (<450)
[2020-01-23] MEDS: SPIRONOLACTONE 12.5MG PER 1/2 TABLET PO SCH (09:19)
[2020-01-23] MEDS: CARVedilol 12.5 MG TAB PO SCH ×2 (09:19→21:22)
[2020-01-23] MEDS: ISOSORBIDE MON. (IMDUR) 60 MG XR TAB PO SCH ×2 (09:20→21:21)
[2020-01-23] MEDS: ASPIRIN 81 MG ENTERIC TAB PO SCH (09:20)
[2020-01-23] MEDS: LOSARTAN 50MG TABLET PO SCH (09:20)
[2020-01-23 09:23] VITALS: BP_SYST 103; BP_DIAS 21; BP_DIAS 71
[2020-01-23 15:34] LABS: BLOOD UREA NITROGEN 36 MG/DL (7-18); CALCIUM LEVEL 8.9 MG/DL (8.8-10.2); CARBON DIOXIDE LEVEL 28 MEQ/L (21-32); CHLORIDE LEVEL 107 MEQ/L (98-107); CREATININE FOR GFR 1.19 MG/DL (0.70-1.30); GLOMERULAR FILTRATION RATE > 60.0 (>35); GLUCOSE, FASTING 151 MG/DL (70-100); SODIUM LEVEL 141 MEQ/L (136-145)
[2020-01-23] MEDS: QUEtiapine FUMARATE 25 MG TAB PO SCH (17:46)
[2020-01-23] MEDS: LEVEMIR (INSULIN DETEMIR) 1 UNITS/0.01ML SC SCH (21:00)
[2020-01-23] MEDS ORDERED: LEVEMIR (INSULIN DETEMIR) 1 UNITS/0.01ML SC ONE (21:15)
[2020-01-23] MEDS: ENOXAPARIN 40MG/0.4ML SYRINGE (J1650 PER 10MG) SC SCH (21:21)
[2020-01-23] MEDS: RAMELTEON 8 MG TAB (ROZEREM) PO PRN (21:22)
[2020-01-23] MEDS: ATORVASTATIN 20 MG TAB PO SCH (21:22)
[2020-01-23] MEDS: ACETAMINOPHEN TAB 650MG DOSE (2X325MG) PO PRN (21:22)
[2020-01-24] MEDS: ACETAMINOPHEN TAB 650MG DOSE (2X325MG) PO PRN ×3 (02:07→19:47)
[2020-01-24 06:00] VITALS: BP 121/74
[2020-01-24] MEDS: HumaLOG INSULIN (NovoLOG) PER UNIT SC SCH ×4 (07:30→21:00)
[2020-01-24] MEDS: SPIRONOLACTONE 12.5MG PER 1/2 TABLET PO SCH (09:42)
[2020-01-24] MEDS: LOSARTAN 50MG TABLET PO SCH (09:42)
[2020-01-24] MEDS: ASPIRIN 81 MG ENTERIC TAB PO SCH (09:42)
[2020-01-24] MEDS: ISOSORBIDE MON. (IMDUR) 60 MG XR TAB PO SCH ×2 (09:43→19:46)
[2020-01-24] MEDS: CARVedilol 12.5 MG TAB PO SCH ×2 (09:44→19:47)
--- NOTE | 2020-01-24 13:41 | IPNPDOC ---
Text Note Date of Service The patient was seen on 01/24/20. NOTE Subjective: Patient is an 89-year-old male with a PMHx of COPD, T2DM, HTN, CVA, [place] s/p stents, and BPH, brought to the ED by his daughter for altered mental status, found to have cloudy urine with leukocyte esterase concerning for UTI a nd elevated blood pressure.. She was admitted to hospital service for further evaluation and treatment. Patient was seen and examined at the bedside. Patient appears to be pleasant. Denies any problems overnight. This morning he was noted to have a low blood sugar which he did not feel any symptoms from patient did eat breakfast since that point. Objective: Vitals (See below) General: Patient is laying in bed, appears to be comfortable without any acute distress, is awake, alert and oriented to person HEENT: NC, AT CVS: RRR, +S1S2 Lungs: Fair air entry b/l, no wheezing, rhonchi or rales Abdomen: Soft, nondistended and nontender Extremities: Lower extremities are without any edema, - Calf tenderness Assessment and plan: s/p UTI - UA 01/13: suggests UTI; Urine culture 01/13: Aerococcus urinae - s/p ceftriaxone IV; s/p PO amoxicillin course of 7 days - Blood cultures x2 negative at 5 days HTN - Daughter reports intermittent compliance with home medications - BP remains well controlled - c/w Amlodipine, Spironolactone, Imdur, adjusted dose of Losartan Altered mental status with aggressive behavior - 2/2 toxic metabolic encephalopathy from UTI vs hypertensive crisis vs worsening dementia - s/p treatment of UTI; BP well controlled currently - c/w Seroquel - PFS for custodial placement Fall with subsequent R low back pain - lumbar spine XR and pelvis XR negative for fracture - c/w Tylenol and k pad for pain Normocytic Anemia - likely chronic based on prior lab work - History of GI bleed - Stool for occult blood pending - Iron studies suggesting anemia of chronic disease - monitor H/H daily and transfuse if indicated IDDM2 with Hypoglycemia - Will reduce dose of Levemir - c/w ISS CAD/[place] - c/w Aspirin and Lipitor DVT prophylaxis - c/w Lovenox Disposition: - Pending placement - c/w ALC status VS,Fishbone, I+O VS, Fishbone, I+O Vital Signs Date Time Temp Pulse Resp B/P (MAP) Pulse Ox O2 Delivery O2 Flow Rate FiO2 01/24/20 09:44 62 121/74 01/24/20 06:00 98.1 17 96 Room Air 01/22/20 16:00 2.0 I&O- Last 24 Hours up to 6 AM 01/24/20 06:00 Intake Total 1200 ml Output Total 200 ml Balance 1000 ml KEVIN AYALA MD Jan 24, 2020 13:41
[2020-01-24] MEDS: QUEtiapine FUMARATE 25 MG TAB PO SCH (17:35)
[2020-01-24] MEDS: LEVEMIR (INSULIN DETEMIR) 1 UNITS/0.01ML SC SCH (19:45)
[2020-01-24] MEDS: ENOXAPARIN 40MG/0.4ML SYRINGE (J1650 PER 10MG) SC SCH (19:45)
[2020-01-24] MEDS: ATORVASTATIN 20 MG TAB PO SCH (19:46)
[2020-01-24] MEDS: RAMELTEON 8 MG TAB (ROZEREM) PO PRN (19:47)
[2020-01-24] MEDS ORDERED: LEVEMIR (INSULIN DETEMIR) 1 UNITS/0.01ML SC SCH (21:00)
[2020-01-25 06:00] VITALS: BP 142/67
[2020-01-25] MEDS: HumaLOG INSULIN (NovoLOG) PER UNIT SC SCH ×4 (09:17→21:00)
[2020-01-25] MEDS: SPIRONOLACTONE 12.5MG PER 1/2 TABLET PO SCH (09:17)
[2020-01-25] MEDS: ISOSORBIDE MON. (IMDUR) 60 MG XR TAB PO SCH ×2 (09:18→21:07)
[2020-01-25] MEDS: LOSARTAN 50MG TABLET PO SCH (09:18)
[2020-01-25] MEDS: ASPIRIN 81 MG ENTERIC TAB PO SCH (09:18)
[2020-01-25] MEDS: CARVedilol 12.5 MG TAB PO SCH ×2 (09:18→21:07)
[2020-01-25] MEDS: QUEtiapine FUMARATE 25 MG TAB PO SCH (17:59)
[2020-01-25] MEDS: ATORVASTATIN 20 MG TAB PO SCH (21:06)
[2020-01-25] MEDS: ENOXAPARIN 40MG/0.4ML SYRINGE (J1650 PER 10MG) SC SCH (21:08)
[2020-01-25] MEDS: LEVEMIR (INSULIN DETEMIR) 1 UNITS/0.01ML SC SCH (21:08)
[2020-01-26 06:00] VITALS: BP 162/86
[2020-01-26] MEDS: HumaLOG INSULIN (NovoLOG) PER UNIT SC SCH ×4 (07:12→21:00)
[2020-01-26] MEDS: SPIRONOLACTONE 12.5MG PER 1/2 TABLET PO SCH (09:13)
[2020-01-26] MEDS: CARVedilol 12.5 MG TAB PO SCH ×3 (09:14→21:00)
[2020-01-26] MEDS: ASPIRIN 81 MG ENTERIC TAB PO SCH (09:14)
[2020-01-26] MEDS: ISOSORBIDE MON. (IMDUR) 60 MG XR TAB PO SCH ×3 (09:15→21:00)
[2020-01-26] MEDS: LOSARTAN 50MG TABLET PO SCH (09:15)
[2020-01-26] MEDS ORDERED: TAMSULOSIN 0.4 MG CAP PO ONE (13:00)
[2020-01-26] MEDS: SENOKOT S TAB PO SCH ×2 (13:30→21:00)
[2020-01-26] MEDS: QUEtiapine FUMARATE 25 MG TAB PO SCH (17:46)
[2020-01-26 20:00] VITALS: BP 154/69
[2020-01-26] MEDS: ENOXAPARIN 40MG/0.4ML SYRINGE (J1650 PER 10MG) SC SCH ×2 (20:43→21:00)
[2020-01-26] MEDS: ACETAMINOPHEN TAB 650MG DOSE (2X325MG) PO PRN (20:43)
[2020-01-26] MEDS: RAMELTEON 8 MG TAB (ROZEREM) PO PRN (20:43)
[2020-01-26] MEDS: LEVEMIR (INSULIN DETEMIR) 1 UNITS/0.01ML SC SCH ×2 (20:45→21:00)
[2020-01-26] MEDS: ATORVASTATIN 20 MG TAB PO SCH (21:00)
--- NOTE | 2020-01-26 21:07 | IPNPDOC ---
Text Note Date of Service The patient was seen on 01/26/20. NOTE TIME 907 I was called by the nursing staff because the patient was arguing with staff, refusing meds, trying to walk into other patient's rooms and swinging his cane at the staff. At about 8PM his blood pressure was 154/69, HR 60 serum glucose was 219. We will order haloperidol 1mg IV QHS PRN for agitation and repeat his vitals to ensure he doesn't have a fever. VS,Fishbone, I+O VS, Fishbone, I+O Vital Signs Date Time Temp Pulse Resp B/P (MAP) Pulse Ox O2 Delivery O2 Flow Rate FiO2 01/26/20 09:15 162/86 01/26/20 09:14 58 01/26/20 06:00 99.0 20 93 Room Air 01/22/20 16:00 2.0 I&O- Last 24 Hours up to 6 AM 01/26/20 06:00 Intake Total 1920 ml Output Total 2125 ml Balance -205 ml EVAN TAO MD Jan 26, 2020 21:07
[2020-01-26] MEDS ORDERED: haloperidoL 1 MG TAB PO PRN (21:15)
[2020-01-26] MEDS ORDERED: HALOPERIDOL 5MG/ML VIAL (J1630 PER 1) IV PRN ×2 (21:15→21:45)
[2020-01-26 23:58] VITALS: BP 171/62
[2020-01-27 06:00] VITALS: BP 160/72
[2020-01-27 08:01] LABS: BASO % 0.4 % (0.0-1.0); EOS # 0.4 10^3/uL (0.0-0.5); EOS % 4.2 % (0.0-3.0); HEMATOCRIT 34.6 % (42.0-52.0); LYMPH # 3.1 10^3/uL (1.5-5.0); LYMPH % 34.5 % (24.0-44.0); MEAN CORPUSCULAR HGB CONC 31.8 g/dl (32.0-36.5); MEAN CORPUSCULAR VOLUME 94.3 fl (80.0-96.0); MONO # 0.8 10^3/uL (0.0-0.8); MONO % 8.5 % (0.0-5.0); NEUTROPHILS # 4.8 10^3/uL (1.5-8.5); NEUTROPHILS % 52.1 % (36.0-66.0); PLATELET COUNT, AUTOMATED 422 10^3/uL (150-450); RED BLOOD COUNT 3.67 10^6/uL (4.30-6.10); WHITE BLOOD COUNT 9.1 10^3/uL (4.0-10.0)
[2020-01-27 08:11] LABS: BLOOD UREA NITROGEN 19 MG/DL (7-18); CARBON DIOXIDE LEVEL 26 MEQ/L (21-32); CHLORIDE LEVEL 109 MEQ/L (98-107); CREATININE FOR GFR 0.87 MG/DL (0.70-1.30); GLOMERULAR FILTRATION RATE > 60.0 (>35); GLUCOSE, FASTING 255 MG/DL (70-100); MAGNESIUM LEVEL 2.2 MG/DL (1.8-2.4); POTASSIUM SERUM 4.5 MEQ/L (3.5-5.1); SODIUM LEVEL 141 MEQ/L (136-145)
[2020-01-27] MEDS: HumaLOG INSULIN (NovoLOG) PER UNIT SC SCH ×4 (09:06→20:04)
[2020-01-27] MEDS: ASPIRIN 81 MG ENTERIC TAB PO SCH (09:06)
[2020-01-27] MEDS: SPIRONOLACTONE 12.5MG PER 1/2 TABLET PO SCH (09:06)
[2020-01-27] MEDS: TAMSULOSIN 0.4 MG CAP PO SCH (09:07)
[2020-01-27] MEDS: ISOSORBIDE MON. (IMDUR) 60 MG XR TAB PO SCH ×2 (09:07→20:51)
[2020-01-27] MEDS: CARVedilol 12.5 MG TAB PO SCH ×2 (09:08→20:50)
[2020-01-27] MEDS: LOSARTAN 50MG TABLET PO SCH (09:08)
[2020-01-27] MEDS: SENOKOT S TAB PO SCH ×2 (09:09→20:52)
[2020-01-27] MEDS: QUEtiapine FUMARATE 25 MG TAB PO SCH (17:24)
[2020-01-27] MEDS ORDERED: OLANZapine INTRAMUSCULAR 10MG VIAL IM PRN (18:00)
[2020-01-27] MEDS: ATORVASTATIN 20 MG TAB PO SCH (20:04)
[2020-01-27] MEDS: ENOXAPARIN 40MG/0.4ML SYRINGE (J1650 PER 10MG) SC SCH (20:51)
[2020-01-27] MEDS: RAMELTEON 8 MG TAB (ROZEREM) PO PRN (20:52)
[2020-01-27] MEDS: LEVEMIR (INSULIN DETEMIR) 1 UNITS/0.01ML SC SCH (20:52)
[2020-01-27] MEDS: ACETAMINOPHEN TAB 650MG DOSE (2X325MG) PO PRN (20:52)
[2020-01-28] MEDS: SPIRONOLACTONE 12.5MG PER 1/2 TABLET PO SCH (08:30)
[2020-01-28] MEDS: HumaLOG INSULIN (NovoLOG) PER UNIT SC SCH ×4 (08:30→20:22)
[2020-01-28] MEDS: TAMSULOSIN 0.4 MG CAP PO SCH (08:32)
[2020-01-28] MEDS: SENOKOT S TAB PO SCH ×2 (08:32→21:14)
[2020-01-28] MEDS: ISOSORBIDE MON. (IMDUR) 60 MG XR TAB PO SCH ×2 (08:32→21:13)
[2020-01-28] MEDS: ACETAMINOPHEN TAB 650MG DOSE (2X325MG) PO PRN ×2 (08:33→21:13)
[2020-01-28] MEDS: LOSARTAN 50MG TABLET PO SCH (08:33)
[2020-01-28] MEDS: ASPIRIN 81 MG ENTERIC TAB PO SCH (08:34)
[2020-01-28] MEDS: CARVedilol 12.5 MG TAB PO SCH ×2 (08:34→21:14)
[2020-01-28] MEDS: QUEtiapine FUMARATE 25 MG TAB PO SCH (17:31)
[2020-01-28] MEDS: ATORVASTATIN 20 MG TAB PO SCH (20:22)
[2020-01-28] MEDS: RAMELTEON 8 MG TAB (ROZEREM) PO PRN (21:13)
[2020-01-28] MEDS: ENOXAPARIN 40MG/0.4ML SYRINGE (J1650 PER 10MG) SC SCH (21:14)
[2020-01-28] MEDS: LEVEMIR (INSULIN DETEMIR) 1 UNITS/0.01ML SC SCH (21:15)
[2020-01-29 06:00] VITALS: BP 160/89
[2020-01-29] MEDS: HumaLOG INSULIN (NovoLOG) PER UNIT SC SCH ×4 (07:30→21:00)
[2020-01-29] MEDS: SENOKOT S TAB PO SCH ×2 (09:29→21:13)
[2020-01-29] MEDS: ASPIRIN 81 MG ENTERIC TAB PO SCH (09:29)
[2020-01-29] MEDS: SPIRONOLACTONE 12.5MG PER 1/2 TABLET PO SCH (09:29)
[2020-01-29] MEDS: ISOSORBIDE MON. (IMDUR) 60 MG XR TAB PO SCH ×2 (09:30→21:17)
[2020-01-29] MEDS: CARVedilol 12.5 MG TAB PO SCH ×2 (09:31→21:19)
[2020-01-29] MEDS: TAMSULOSIN 0.4 MG CAP PO SCH (09:31)
[2020-01-29] MEDS: LOSARTAN 50MG TABLET PO SCH (09:32)
[2020-01-29] MEDS: QUEtiapine FUMARATE 25 MG TAB PO SCH (18:19)
[2020-01-29] MEDS: RAMELTEON 8 MG TAB (ROZEREM) PO PRN (21:13)
[2020-01-29] MEDS: ENOXAPARIN 40MG/0.4ML SYRINGE (J1650 PER 10MG) SC SCH (21:13)
[2020-01-29] MEDS: LEVEMIR (INSULIN DETEMIR) 1 UNITS/0.01ML SC SCH (21:18)
[2020-01-29] MEDS: ATORVASTATIN 20 MG TAB PO SCH (21:19)
[2020-01-29 22:00] VITALS: BP 157/61
[2020-01-30 06:00] VITALS: BP 153/60
[2020-01-30] MEDS: HumaLOG INSULIN (NovoLOG) PER UNIT SC SCH ×4 (07:30→21:00)
[2020-01-30] MEDS: LOSARTAN 50MG TABLET PO SCH (09:42)
[2020-01-30] MEDS: ISOSORBIDE MON. (IMDUR) 60 MG XR TAB PO SCH ×2 (09:42→22:18)
[2020-01-30] MEDS: ASPIRIN 81 MG ENTERIC TAB PO SCH (09:42)
[2020-01-30] MEDS: SPIRONOLACTONE 12.5MG PER 1/2 TABLET PO SCH (09:42)
[2020-01-30] MEDS: SENOKOT S TAB PO SCH ×2 (09:42→22:17)
[2020-01-30] MEDS: CARVedilol 12.5 MG TAB PO SCH ×2 (09:43→22:17)
[2020-01-30] MEDS: TAMSULOSIN 0.4 MG CAP PO SCH (09:43)
[2020-01-30] MEDS: QUEtiapine FUMARATE 25 MG TAB PO SCH (18:16)
[2020-01-30 22:13] VITALS: BP 127/98
[2020-01-30] MEDS: ATORVASTATIN 20 MG TAB PO SCH (22:17)
[2020-01-30] MEDS: RAMELTEON 8 MG TAB (ROZEREM) PO PRN (22:18)
[2020-01-30] MEDS: LEVEMIR (INSULIN DETEMIR) 1 UNITS/0.01ML SC SCH (22:19)
[2020-01-30] MEDS: ENOXAPARIN 40MG/0.4ML SYRINGE (J1650 PER 10MG) SC SCH (22:19)
[2020-01-31 05:17] VITALS: BP 142/59
[2020-01-31] MEDS: SPIRONOLACTONE 12.5MG PER 1/2 TABLET PO SCH (08:15)
[2020-01-31] MEDS: LOSARTAN 50MG TABLET PO SCH (08:15)
[2020-01-31] MEDS: CARVedilol 12.5 MG TAB PO SCH ×2 (08:16→20:20)
[2020-01-31] MEDS: SENOKOT S TAB PO SCH ×2 (08:16→20:19)
[2020-01-31] MEDS: ASPIRIN 81 MG ENTERIC TAB PO SCH (08:16)
[2020-01-31] MEDS: ISOSORBIDE MON. (IMDUR) 60 MG XR TAB PO SCH ×2 (08:16→20:20)
[2020-01-31] MEDS: TAMSULOSIN 0.4 MG CAP PO SCH (08:16)
[2020-01-31] MEDS: HumaLOG INSULIN (NovoLOG) PER UNIT SC SCH ×4 (08:17→20:26)
[2020-01-31 14:45] VITALS: BP 103/48
[2020-01-31] MEDS: QUEtiapine FUMARATE 25 MG TAB PO SCH (17:48)
[2020-01-31 20:00] VITALS: BP 133/61
[2020-01-31] MEDS: ATORVASTATIN 20 MG TAB PO SCH (20:21)
[2020-01-31] MEDS: LEVEMIR (INSULIN DETEMIR) 1 UNITS/0.01ML SC SCH (20:21)
[2020-01-31] MEDS: ENOXAPARIN 40MG/0.4ML SYRINGE (J1650 PER 10MG) SC SCH (20:24)
[2020-02-01 06:00] VITALS: BP 144/74
[2020-02-01] MEDS: HumaLOG INSULIN (NovoLOG) PER UNIT SC SCH ×4 (07:53→21:00)
[2020-02-01] MEDS: ASPIRIN 81 MG ENTERIC TAB PO SCH (08:51)
[2020-02-01] MEDS: CARVedilol 12.5 MG TAB PO SCH ×2 (08:52→20:59)
[2020-02-01] MEDS: SENOKOT S TAB PO SCH ×2 (08:52→20:59)
[2020-02-01] MEDS: TAMSULOSIN 0.4 MG CAP PO SCH (08:52)
[2020-02-01] MEDS: SPIRONOLACTONE 12.5MG PER 1/2 TABLET PO SCH (08:53)
[2020-02-01] MEDS: LOSARTAN 50MG TABLET PO SCH (08:53)
[2020-02-01] MEDS: ISOSORBIDE MON. (IMDUR) 60 MG XR TAB PO SCH ×2 (08:53→20:58)
[2020-02-01] MEDS: QUEtiapine FUMARATE 25 MG TAB PO SCH (16:57)
[2020-02-01 20:49] VITALS: BP 160/67
[2020-02-01] MEDS: ATORVASTATIN 20 MG TAB PO SCH (20:58)
[2020-02-01] MEDS: LEVEMIR (INSULIN DETEMIR) 1 UNITS/0.01ML SC SCH (21:00)
[2020-02-01] MEDS: ENOXAPARIN 40MG/0.4ML SYRINGE (J1650 PER 10MG) SC SCH (21:00)
[2020-02-02 06:00] VITALS: BP 137/74
[2020-02-02] MEDS: HumaLOG INSULIN (NovoLOG) PER UNIT SC SCH ×4 (07:16→23:27)
[2020-02-02] MEDS: SENOKOT S TAB PO SCH ×3 (09:00→23:36)
[2020-02-02] MEDS: TAMSULOSIN 0.4 MG CAP PO SCH (09:18)
[2020-02-02] MEDS: LOSARTAN 50MG TABLET PO SCH (09:19)
[2020-02-02] MEDS: ASPIRIN 81 MG ENTERIC TAB PO SCH (09:19)
[2020-02-02] MEDS: CARVedilol 12.5 MG TAB PO SCH ×2 (09:19→23:36)
[2020-02-02] MEDS: SPIRONOLACTONE 12.5MG PER 1/2 TABLET PO SCH (09:20)
[2020-02-02] MEDS: ISOSORBIDE MON. (IMDUR) 60 MG XR TAB PO SCH ×2 (09:20→23:35)
[2020-02-02] MEDS: QUEtiapine FUMARATE 25 MG TAB PO SCH (16:45)
[2020-02-02] MEDS: ACETAMINOPHEN TAB 650MG DOSE (2X325MG) PO PRN ×2 (16:47→21:26)
[2020-02-02] MEDS ORDERED: NITROGLYCERIN 0.4 MG SUBL TABLET SL STA (21:12)
[2020-02-02 21:28] VITALS: BP 147/66
[2020-02-02 21:37] VITALS: BP 99/51
[2020-02-02 21:50] VITALS: BP 126/50
[2020-02-02] MEDS: ENOXAPARIN 40MG/0.4ML SYRINGE (J1650 PER 10MG) SC SCH (23:34)
[2020-02-02] MEDS: LEVEMIR (INSULIN DETEMIR) 1 UNITS/0.01ML SC SCH (23:34)
[2020-02-02] MEDS: RAMELTEON 8 MG TAB (ROZEREM) PO PRN (23:37)
[2020-02-02] MEDS: ATORVASTATIN 20 MG TAB PO SCH (23:43)
[2020-02-03] MEDS ORDERED: LORazepam 1 MG TAB PO ONE (01:00)
[2020-02-03] MEDS ORDERED: LORazepam 2 MG/ML VIAL IM PRN (01:30)
[2020-02-03] MEDS ORDERED: OLANZapine INTRAMUSCULAR 10MG VIAL IM ONE (02:15)
[2020-02-03] MEDS: HumaLOG INSULIN (NovoLOG) PER UNIT SC SCH ×4 (07:30→21:00)
[2020-02-03] MEDS: SENOKOT S TAB PO SCH ×2 (09:00→21:30)
[2020-02-03] MEDS: ISOSORBIDE MON. (IMDUR) 60 MG XR TAB PO SCH ×2 (09:00→21:32)
[2020-02-03] MEDS: TAMSULOSIN 0.4 MG CAP PO SCH ×2 (09:00→11:24)
[2020-02-03] MEDS: SPIRONOLACTONE 12.5MG PER 1/2 TABLET PO SCH ×2 (09:00→11:24)
[2020-02-03] MEDS: LOSARTAN 50MG TABLET PO SCH ×2 (09:00→11:23)
[2020-02-03] MEDS: ASPIRIN 81 MG ENTERIC TAB PO SCH ×2 (09:00→11:23)
[2020-02-03] MEDS: CARVedilol 12.5 MG TAB PO SCH ×3 (09:00→21:31)
[2020-02-03 11:26] VITALS: BP 152/67
[2020-02-03] MEDS: QUEtiapine FUMARATE 25 MG TAB PO SCH (17:41)
[2020-02-03] MEDS: ENOXAPARIN 40MG/0.4ML SYRINGE (J1650 PER 10MG) SC SCH (21:29)
[2020-02-03] MEDS: LEVEMIR (INSULIN DETEMIR) 1 UNITS/0.01ML SC SCH (21:30)
[2020-02-03] MEDS: ATORVASTATIN 20 MG TAB PO SCH (21:30)
--- NOTE | 2020-02-04 06:00 | ECGEPIP ---
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
[2020-02-04] MEDS: HumaLOG INSULIN (NovoLOG) PER UNIT SC SCH ×4 (07:25→21:00)
[2020-02-04] MEDS: SENOKOT S TAB PO SCH ×3 (08:36→21:12)
[2020-02-04] MEDS: SPIRONOLACTONE 12.5MG PER 1/2 TABLET PO SCH (08:36)
[2020-02-04] MEDS: ASPIRIN 81 MG ENTERIC TAB PO SCH (08:37)
[2020-02-04] MEDS: ISOSORBIDE MON. (IMDUR) 60 MG XR TAB PO SCH ×2 (08:37→21:11)
[2020-02-04] MEDS: TAMSULOSIN 0.4 MG CAP PO SCH (08:37)
[2020-02-04] MEDS: CARVedilol 12.5 MG TAB PO SCH ×2 (08:37→21:12)
[2020-02-04] MEDS: LOSARTAN 50MG TABLET PO SCH (08:38)
[2020-02-04 08:45] VITALS: BP 127/61
[2020-02-04] MEDS: QUEtiapine FUMARATE 25 MG TAB PO SCH (17:48)
[2020-02-04] MEDS: ENOXAPARIN 40MG/0.4ML SYRINGE (J1650 PER 10MG) SC SCH (21:10)
[2020-02-04] MEDS: LEVEMIR (INSULIN DETEMIR) 1 UNITS/0.01ML SC SCH (21:10)
[2020-02-04] MEDS: ATORVASTATIN 20 MG TAB PO SCH (21:11)
--- NOTE | 2020-02-04 21:28 | IPNPDOC ---
Subjective Date Seen The patient was seen on 02/04/20. Subjective Chief Complaint/HPI Mr. Boone is an 89 year old male with COPD, DM type 2, HTN, CVA, [place] s/p stents, and BPH who was brought to the ED for AMS and found to have UTI. This afternoon, he was pleasant. Denies chest pain, dyspnea, abdominal pain, or d ysuria. Spoke with the [id number] about the patient. He has periods of lucency in term of his memory, but has been very forgetful. He lives at the [place] home and it has not been safe for patient as [id number] is often busy at work. Patient has not been able to manage medication or ADLs such as cleaning. He leaves moldy food at home. Will check in with patient tomorrow about patient's insight as it is close to evening when I was able to reach out to daughter. Objective Physical Examination General Exam: Positive: Cooperative Eye Exam: Positive: EOMI ENT Exam: Positive: Atraumatic Neck Exam: Positive: Supple Chest Exam: Positive: Clear to auscultation Heart Exam: Positive: Rate Normal, Regular Rhythm Abdomen Exam: Positive: Normal bowel sounds, Soft; Negative: Tenderness Extremity Exam: Negative: Edema Neuro Exam: Positive: Normal Speech Psych Exam: Positive: Mood NL Assessment /Plan Assessment Mr. Boone is an 89 year old male with COPD, DM type 2, HTN, CVA, TN s/p stents, and BPH who was brought to the ED for AMS and found to have UTI. At baseline he has forgetfulness and has been aggressive in the past. He has underlying dementia. He was put on Seroquel and has been doing better with Seroquel. Unknown patient's insight into his current situation at home. Will discuss with patient tomorrow as it may aggravate him this close to night. Plan/VTE VTE Prophylaxis Ordered?: Yes Plan 1. UTI -UA on 01/13 suggests UTI -Urine culture grew Aerococcus urinae -Completed antibiotic course 2. HTN -Continue amlodipine, spironolactone, Imdur, and Losartan 3. Worsening dementia -Toxic metabolic encephalopathy ruled out as patient's mentation did not improve with resolution of UTI -Continue with Seroquel -May need usp placement 4. Fall with subsequent R low back pain -lumbar spine XR and pelvis XR negative for fracture -c/w Tylenol and k pad for pain 5. Normocytic Anemia - Iron studies suggesting anemia of chronic disease 6. IDDM2 -Continue insulin regimen 7. CAD -Continue Aspirin and Lipitor 8. DVT prophylaxis -Continue Lovenox VS, I&O, 24H, Fishbone Vital Signs/I&O Vital Signs Date Time Temp Pulse Resp B/P (MAP) Pulse Ox O2 Delivery O2 Flow Rate FiO2 02/04/20 21:12 61 140/62 02/04/20 08:45 96.0 19 99 Room Air l I&O- Last 24 Hours up to 6 AM 02/04/20 06:00 Intake Total 500 ml Output Total 880 ml Balance -380 ml Laboratory Data 24H LABS Laboratory Tests 2 02/04/20 07:20: Bedside Glucose (Misc Panel) 111H 02/04/20 11:16: Bedside Glucose (Misc Panel) 165H 02/04/20 16:35: Bedside Glucose (Misc Panel) 173H 02/04/20 20:34: Bedside Glucose (Misc Panel) 197H LASHAWN HERMAN DO Feb 04, 2020 21:28
[2020-02-05] MEDS: HumaLOG INSULIN (NovoLOG) PER UNIT SC SCH ×4 (07:28→21:00)
[2020-02-05] MEDS: ISOSORBIDE MON. (IMDUR) 60 MG XR TAB PO SCH ×2 (08:43→21:00)
[2020-02-05] MEDS: SENOKOT S TAB PO SCH ×3 (08:43→21:00)
[2020-02-05] MEDS: TAMSULOSIN 0.4 MG CAP PO SCH (08:43)
[2020-02-05] MEDS: ASPIRIN 81 MG ENTERIC TAB PO SCH (08:44)
[2020-02-05] MEDS: LOSARTAN 50MG TABLET PO SCH (08:44)
[2020-02-05] MEDS: SPIRONOLACTONE 12.5MG PER 1/2 TABLET PO SCH (08:44)
[2020-02-05] MEDS: CARVedilol 12.5 MG TAB PO SCH ×2 (08:44→21:00)
[2020-02-05 09:00] VITALS: BP 130/63
[2020-02-05] MEDS: QUEtiapine FUMARATE 25 MG TAB PO SCH (17:50)
[2020-02-05] MEDS: ATORVASTATIN 20 MG TAB PO SCH (20:59)
[2020-02-05] MEDS: LEVEMIR (INSULIN DETEMIR) 1 UNITS/0.01ML SC SCH (21:01)
[2020-02-05] MEDS: ENOXAPARIN 40MG/0.4ML SYRINGE (J1650 PER 10MG) SC SCH (21:01)
[2020-02-06 06:00] VITALS: BP 126/61
[2020-02-06] MEDS: HumaLOG INSULIN (NovoLOG) PER UNIT SC SCH ×4 (07:30→20:52)
[2020-02-06] MEDS: SENOKOT S TAB PO SCH ×2 (09:00→20:51)
[2020-02-06] MEDS: SPIRONOLACTONE 12.5MG PER 1/2 TABLET PO SCH (09:26)
[2020-02-06] MEDS: LOSARTAN 50MG TABLET PO SCH (09:26)
[2020-02-06] MEDS: CARVedilol 12.5 MG TAB PO SCH ×2 (09:27→20:52)
[2020-02-06] MEDS: ASPIRIN 81 MG ENTERIC TAB PO SCH (09:27)
[2020-02-06] MEDS: ISOSORBIDE MON. (IMDUR) 60 MG XR TAB PO SCH ×2 (09:28→20:51)
[2020-02-06] MEDS: TAMSULOSIN 0.4 MG CAP PO SCH (09:29)
[2020-02-06] MEDS: QUEtiapine FUMARATE 25 MG TAB PO SCH (16:53)
[2020-02-06] MEDS: LEVEMIR (INSULIN DETEMIR) 1 UNITS/0.01ML SC SCH (20:50)
[2020-02-06] MEDS: ENOXAPARIN 40MG/0.4ML SYRINGE (J1650 PER 10MG) SC SCH ×2 (20:50→21:00)
[2020-02-06] MEDS: RAMELTEON 8 MG TAB (ROZEREM) PO PRN (20:51)
[2020-02-06] MEDS: ATORVASTATIN 20 MG TAB PO SCH (20:51)
[2020-02-06 22:00] VITALS: BP 128/63
[2020-02-07 06:00] VITALS: BP 117/47
[2020-02-07] MEDS: SENOKOT S TAB PO SCH ×2 (08:09→20:31)
[2020-02-07] MEDS: CARVedilol 12.5 MG TAB PO SCH ×2 (08:09→20:31)
[2020-02-07] MEDS: SPIRONOLACTONE 12.5MG PER 1/2 TABLET PO SCH (08:09)
[2020-02-07] MEDS: TAMSULOSIN 0.4 MG CAP PO SCH (08:09)
[2020-02-07] MEDS: ASPIRIN 81 MG ENTERIC TAB PO SCH (08:09)
[2020-02-07] MEDS: LOSARTAN 50MG TABLET PO SCH (08:10)
[2020-02-07] MEDS: ISOSORBIDE MON. (IMDUR) 60 MG XR TAB PO SCH ×2 (08:10→20:32)
[2020-02-07] MEDS: HumaLOG INSULIN (NovoLOG) PER UNIT SC SCH ×4 (08:12→20:02)
[2020-02-07] MEDS: QUEtiapine FUMARATE 25 MG TAB PO SCH (18:01)
[2020-02-07] MEDS: LEVEMIR (INSULIN DETEMIR) 1 UNITS/0.01ML SC SCH (20:30)
[2020-02-07] MEDS: ENOXAPARIN 40MG/0.4ML SYRINGE (J1650 PER 10MG) SC SCH (20:30)
[2020-02-07] MEDS: ATORVASTATIN 20 MG TAB PO SCH (20:30)
[2020-02-07] MEDS: ACETAMINOPHEN TAB 650MG DOSE (2X325MG) PO PRN (20:31)
[2020-02-08 06:00] VITALS: BP 167/79
[2020-02-08] MEDS: SENOKOT S TAB PO SCH ×2 (08:17→20:27)
[2020-02-08] MEDS: SPIRONOLACTONE 12.5MG PER 1/2 TABLET PO SCH (08:17)
[2020-02-08] MEDS: CARVedilol 12.5 MG TAB PO SCH ×2 (08:17→20:28)
[2020-02-08] MEDS: ISOSORBIDE MON. (IMDUR) 60 MG XR TAB PO SCH ×2 (08:17→20:29)
[2020-02-08] MEDS: LOSARTAN 50MG TABLET PO SCH (08:17)
[2020-02-08] MEDS: TAMSULOSIN 0.4 MG CAP PO SCH (08:17)
[2020-02-08] MEDS: ASPIRIN 81 MG ENTERIC TAB PO SCH (08:17)
[2020-02-08] MEDS: HumaLOG INSULIN (NovoLOG) PER UNIT SC SCH ×4 (08:18→20:09)
[2020-02-08] MEDS: QUEtiapine FUMARATE 25 MG TAB PO SCH (17:57)
[2020-02-08] MEDS: LEVEMIR (INSULIN DETEMIR) 1 UNITS/0.01ML SC SCH (20:27)
[2020-02-08] MEDS: ENOXAPARIN 40MG/0.4ML SYRINGE (J1650 PER 10MG) SC SCH (20:27)
[2020-02-08] MEDS: ACETAMINOPHEN TAB 650MG DOSE (2X325MG) PO PRN (20:27)
[2020-02-08] MEDS: RAMELTEON 8 MG TAB (ROZEREM) PO PRN (20:28)
[2020-02-08] MEDS: ATORVASTATIN 20 MG TAB PO SCH (20:28)
[2020-02-09] MEDS: HumaLOG INSULIN (NovoLOG) PER UNIT SC SCH ×4 (07:30→20:08)
[2020-02-09 08:30] VITALS: BP 150/80
[2020-02-09] MEDS: TAMSULOSIN 0.4 MG CAP PO SCH (08:31)
[2020-02-09] MEDS: SPIRONOLACTONE 12.5MG PER 1/2 TABLET PO SCH (08:31)
[2020-02-09] MEDS: CARVedilol 12.5 MG TAB PO SCH ×2 (08:31→20:07)
[2020-02-09] MEDS: ASPIRIN 81 MG ENTERIC TAB PO SCH (08:31)
[2020-02-09] MEDS: ISOSORBIDE MON. (IMDUR) 60 MG XR TAB PO SCH ×2 (08:32→20:06)
[2020-02-09] MEDS: LOSARTAN 50MG TABLET PO SCH (08:32)
[2020-02-09] MEDS: SENOKOT S TAB PO SCH ×2 (08:35→20:06)
[2020-02-09] MEDS: QUEtiapine FUMARATE 25 MG TAB PO SCH (17:52)
[2020-02-09] MEDS: RAMELTEON 8 MG TAB (ROZEREM) PO PRN (20:06)
[2020-02-09] MEDS: ACETAMINOPHEN TAB 650MG DOSE (2X325MG) PO PRN (20:06)
[2020-02-09] MEDS: ENOXAPARIN 40MG/0.4ML SYRINGE (J1650 PER 10MG) SC SCH (20:07)
[2020-02-09] MEDS: ATORVASTATIN 20 MG TAB PO SCH (20:07)
[2020-02-09] MEDS: LEVEMIR (INSULIN DETEMIR) 1 UNITS/0.01ML SC SCH (20:08)
[2020-02-10 06:00] VITALS: BP 161/76
[2020-02-10] MEDS: HumaLOG INSULIN (NovoLOG) PER UNIT SC SCH ×4 (07:30→21:00)
[2020-02-10] MEDS: SPIRONOLACTONE 12.5MG PER 1/2 TABLET PO SCH (10:05)
[2020-02-10] MEDS: CARVedilol 12.5 MG TAB PO SCH ×2 (10:06→22:48)
[2020-02-10] MEDS: TAMSULOSIN 0.4 MG CAP PO SCH (10:06)
[2020-02-10] MEDS: ASPIRIN 81 MG ENTERIC TAB PO SCH (10:06)
[2020-02-10] MEDS: ISOSORBIDE MON. (IMDUR) 60 MG XR TAB PO SCH ×2 (10:06→22:47)
[2020-02-10] MEDS: SENOKOT S TAB PO SCH ×2 (10:06→22:47)
[2020-02-10] MEDS: LOSARTAN 50MG TABLET PO SCH (10:07)
[2020-02-10 10:54] LABS: RSV AMPLIFICATION NEGATIVE (NEGATIVE)
[2020-02-10] MEDS: QUEtiapine FUMARATE 25 MG TAB PO SCH (17:47)
[2020-02-10] MEDS: LEVEMIR (INSULIN DETEMIR) 1 UNITS/0.01ML SC SCH (22:46)
[2020-02-10] MEDS: ENOXAPARIN 40MG/0.4ML SYRINGE (J1650 PER 10MG) SC SCH (22:47)
[2020-02-10] MEDS: RAMELTEON 8 MG TAB (ROZEREM) PO PRN (22:47)
[2020-02-10] MEDS: ATORVASTATIN 20 MG TAB PO SCH (22:48)
[2020-02-11 06:00] VITALS: BP 116/51
[2020-02-11] MEDS: HumaLOG INSULIN (NovoLOG) PER UNIT SC SCH ×5 (07:30→22:08)
[2020-02-11] MEDS: LOSARTAN 50MG TABLET PO SCH (10:52)
[2020-02-11] MEDS: ISOSORBIDE MON. (IMDUR) 60 MG XR TAB PO SCH ×2 (10:52→22:18)
[2020-02-11] MEDS: SENOKOT S TAB PO SCH ×2 (10:52→22:10)
[2020-02-11] MEDS: SPIRONOLACTONE 12.5MG PER 1/2 TABLET PO SCH (10:52)
[2020-02-11] MEDS: ASPIRIN 81 MG ENTERIC TAB PO SCH (10:53)
[2020-02-11] MEDS: TAMSULOSIN 0.4 MG CAP PO SCH (10:53)
[2020-02-11] MEDS: CARVedilol 12.5 MG TAB PO SCH ×2 (10:53→22:09)
[2020-02-11] MEDS: QUEtiapine FUMARATE 25 MG TAB PO SCH (17:29)
[2020-02-11] MEDS: ATORVASTATIN 20 MG TAB PO SCH (22:07)
[2020-02-11] MEDS: LEVEMIR (INSULIN DETEMIR) 1 UNITS/0.01ML SC SCH (22:08)
[2020-02-11] MEDS: ENOXAPARIN 40MG/0.4ML SYRINGE (J1650 PER 10MG) SC SCH (22:09)
[2020-02-11] MEDS: RAMELTEON 8 MG TAB (ROZEREM) PO PRN (22:09)
[2020-02-12 06:00] VITALS: BP 117/50
[2020-02-12] MEDS: HumaLOG INSULIN (NovoLOG) PER UNIT SC SCH ×4 (07:30→20:03)
[2020-02-12] MEDS: SPIRONOLACTONE 12.5MG PER 1/2 TABLET PO SCH (09:07)
[2020-02-12] MEDS: ASPIRIN 81 MG ENTERIC TAB PO SCH (09:07)
[2020-02-12] MEDS: SENOKOT S TAB PO SCH ×2 (09:07→20:17)
[2020-02-12] MEDS: TAMSULOSIN 0.4 MG CAP PO SCH (09:07)
[2020-02-12] MEDS: ISOSORBIDE MON. (IMDUR) 60 MG XR TAB PO SCH ×2 (09:08→20:18)
[2020-02-12] MEDS: CARVedilol 12.5 MG TAB PO SCH ×2 (09:09→20:18)
[2020-02-12] MEDS: LOSARTAN 50MG TABLET PO SCH (09:09)
[2020-02-12] MEDS: QUEtiapine FUMARATE 25 MG TAB PO SCH (17:51)
[2020-02-12] MEDS: LEVEMIR (INSULIN DETEMIR) 1 UNITS/0.01ML SC SCH ×2 (20:17→20:25)
[2020-02-12] MEDS: ENOXAPARIN 40MG/0.4ML SYRINGE (J1650 PER 10MG) SC SCH (20:17)
[2020-02-12] MEDS: RAMELTEON 8 MG TAB (ROZEREM) PO PRN (20:17)
[2020-02-12] MEDS: ATORVASTATIN 20 MG TAB PO SCH (20:17)
[2020-02-13 06:00] VITALS: BP 132/63
[2020-02-13] MEDS: ISOSORBIDE MON. (IMDUR) 60 MG XR TAB PO SCH ×2 (10:12→21:38)
[2020-02-13] MEDS: HumaLOG INSULIN (NovoLOG) PER UNIT SC SCH ×4 (10:12→21:37)
[2020-02-13] MEDS: CARVedilol 12.5 MG TAB PO SCH ×2 (10:13→21:39)
[2020-02-13] MEDS: SENOKOT S TAB PO SCH ×2 (10:13→21:37)
[2020-02-13] MEDS: LOSARTAN 50MG TABLET PO SCH (10:13)
[2020-02-13] MEDS: SPIRONOLACTONE 12.5MG PER 1/2 TABLET PO SCH (10:13)
[2020-02-13] MEDS: ASPIRIN 81 MG ENTERIC TAB PO SCH (10:13)
[2020-02-13] MEDS: TAMSULOSIN 0.4 MG CAP PO SCH (10:14)
[2020-02-13] MEDS: QUEtiapine FUMARATE 25 MG TAB PO SCH (17:32)
[2020-02-13] MEDS: LEVEMIR (INSULIN DETEMIR) 1 UNITS/0.01ML SC SCH (21:36)
[2020-02-13] MEDS: ATORVASTATIN 20 MG TAB PO SCH (21:37)
[2020-02-13] MEDS: RAMELTEON 8 MG TAB (ROZEREM) PO PRN (21:38)
[2020-02-13] MEDS: ENOXAPARIN 40MG/0.4ML SYRINGE (J1650 PER 10MG) SC SCH (21:39)
[2020-02-14 06:00] VITALS: BP 153/72
[2020-02-14] MEDS: SENOKOT S TAB PO SCH ×2 (07:56→20:38)
[2020-02-14] MEDS: HumaLOG INSULIN (NovoLOG) PER UNIT SC SCH ×4 (07:56→21:00)
[2020-02-14] MEDS: ASPIRIN 81 MG ENTERIC TAB PO SCH (07:57)
[2020-02-14] MEDS: TAMSULOSIN 0.4 MG CAP PO SCH (07:58)
[2020-02-14] MEDS: CARVedilol 12.5 MG TAB PO SCH ×2 (07:59→20:37)
[2020-02-14] MEDS: ISOSORBIDE MON. (IMDUR) 60 MG XR TAB PO SCH ×2 (08:00→20:37)
[2020-02-14] MEDS: LOSARTAN 50MG TABLET PO SCH (08:01)
[2020-02-14] MEDS: SPIRONOLACTONE 12.5MG PER 1/2 TABLET PO SCH (08:01)
[2020-02-14] MEDS: QUEtiapine FUMARATE 25 MG TAB PO SCH (17:51)
[2020-02-14] MEDS: ATORVASTATIN 20 MG TAB PO SCH (20:36)
[2020-02-14] MEDS: ENOXAPARIN 40MG/0.4ML SYRINGE (J1650 PER 10MG) SC SCH (20:38)
[2020-02-14] MEDS: RAMELTEON 8 MG TAB (ROZEREM) PO PRN (20:38)
[2020-02-14] MEDS: LEVEMIR (INSULIN DETEMIR) 1 UNITS/0.01ML SC SCH (20:38)
[2020-02-15 06:24] VITALS: BP 174/78
[2020-02-15] MEDS: SPIRONOLACTONE 12.5MG PER 1/2 TABLET PO SCH (08:21)
[2020-02-15] MEDS: TAMSULOSIN 0.4 MG CAP PO SCH (08:21)
[2020-02-15] MEDS: HumaLOG INSULIN (NovoLOG) PER UNIT SC SCH ×4 (08:21→20:55)
[2020-02-15] MEDS: ASPIRIN 81 MG ENTERIC TAB PO SCH (08:21)
[2020-02-15] MEDS: SENOKOT S TAB PO SCH ×2 (08:21→20:52)
[2020-02-15] MEDS: ISOSORBIDE MON. (IMDUR) 60 MG XR TAB PO SCH ×3 (08:22→21:00)
[2020-02-15] MEDS: LOSARTAN 50MG TABLET PO SCH (08:23)
[2020-02-15] MEDS: CARVedilol 12.5 MG TAB PO SCH ×2 (08:24→20:54)
[2020-02-15] MEDS: QUEtiapine FUMARATE 25 MG TAB PO SCH (17:56)
[2020-02-15] MEDS: ATORVASTATIN 20 MG TAB PO SCH (20:52)
[2020-02-15] MEDS: RAMELTEON 8 MG TAB (ROZEREM) PO PRN (20:54)
[2020-02-15] MEDS: ENOXAPARIN 40MG/0.4ML SYRINGE (J1650 PER 10MG) SC SCH (20:55)
[2020-02-15] MEDS: LEVEMIR (INSULIN DETEMIR) 1 UNITS/0.01ML SC SCH (20:55)
[2020-02-16 06:00] VITALS: BP 132/57
[2020-02-16] MEDS: HumaLOG INSULIN (NovoLOG) PER UNIT SC SCH ×4 (07:30→19:53)
[2020-02-16] MEDS: SENOKOT S TAB PO SCH ×2 (12:04→20:12)
[2020-02-16] MEDS: ASPIRIN 81 MG ENTERIC TAB PO SCH (12:05)
[2020-02-16] MEDS: ISOSORBIDE MON. (IMDUR) 60 MG XR TAB PO SCH ×2 (12:05→20:04)
[2020-02-16] MEDS: SPIRONOLACTONE 12.5MG PER 1/2 TABLET PO SCH (12:05)
[2020-02-16] MEDS: TAMSULOSIN 0.4 MG CAP PO SCH (12:05)
[2020-02-16] MEDS: LOSARTAN 50MG TABLET PO SCH (12:06)
[2020-02-16] MEDS: CARVedilol 12.5 MG TAB PO SCH ×2 (12:07→20:03)
[2020-02-16] MEDS: QUEtiapine FUMARATE 25 MG TAB PO SCH (17:21)
[2020-02-16] MEDS: ATORVASTATIN 20 MG TAB PO SCH (20:02)
[2020-02-16] MEDS: LEVEMIR (INSULIN DETEMIR) 1 UNITS/0.01ML SC SCH (20:03)
[2020-02-16] MEDS: ENOXAPARIN 40MG/0.4ML SYRINGE (J1650 PER 10MG) SC SCH (20:04)
[2020-02-17 06:00] VITALS: BP 130/69
[2020-02-17] MEDS: HumaLOG INSULIN (NovoLOG) PER UNIT SC SCH ×4 (09:00→20:33)
[2020-02-17] MEDS: SENOKOT S TAB PO SCH ×2 (09:00→20:33)
[2020-02-17] MEDS: SPIRONOLACTONE 12.5MG PER 1/2 TABLET PO SCH (09:55)
[2020-02-17] MEDS: TAMSULOSIN 0.4 MG CAP PO SCH (09:56)
[2020-02-17] MEDS: ASPIRIN 81 MG ENTERIC TAB PO SCH (09:56)
[2020-02-17] MEDS: LOSARTAN 50MG TABLET PO SCH (09:56)
[2020-02-17] MEDS: ISOSORBIDE MON. (IMDUR) 60 MG XR TAB PO SCH ×2 (09:56→20:34)
[2020-02-17] MEDS: CARVedilol 12.5 MG TAB PO SCH ×2 (09:57→20:34)
[2020-02-17] MEDS: QUEtiapine FUMARATE 25 MG TAB PO SCH (17:02)
[2020-02-17] MEDS: ENOXAPARIN 40MG/0.4ML SYRINGE (J1650 PER 10MG) SC SCH (20:32)
[2020-02-17] MEDS: LEVEMIR (INSULIN DETEMIR) 1 UNITS/0.01ML SC SCH (20:33)
[2020-02-17] MEDS: ATORVASTATIN 20 MG TAB PO SCH (20:33)
--- NOTE | 2020-02-17 21:23 | IPNPDOC ---
Text Note Date of Service The patient was seen on 02/17/20. NOTE Subjective: No any acute events overnight. Objective: GENERAL APPEARANCE: NAD HEENT: no scleral icterus, no JVD, EOMI CARDIOVASCULAR: S1S2 LUNGS: CTA ABDOMEN: soft & not tender w palpitation MUSCULOSKELETAL: no cyanosis, no swelling INTEGUMENT: no generalized pallor NEUROLOGICAL: cranial nerve function from 2-12 intact intact, follows commands, speech not dysarthric Assessment Mr. Boone is an 89 year old male with COPD, DM type 2, HTN, CVA, [place] s/p stents, and BPH who was brought to the ED for AMS and found to have UTI. At baseline he has forgetfulness and has been aggressive in the past. He has underlying dementia. He was put on Seroquel and has been doing better with Seroquel. Unknown patient's insight into his current situation at home. W Plan 1. UTI Completed course of antibiotics 2. HTN Blood pressures under control continue home cardioprotective medications 3. Worsening dementia Await placement 4. Fall with subsequent R low back pain lumbar spine XR and pelvis XR negative for fracture c/w Tylenol and k pad for pain 5. Normocytic Anemia Iron studies suggesting anemia of chronic disease 6. IDDM2 Glucose level under control Continue insulin regimen 7. CAD Continue Aspirin and Lipitor 8. DVT prophylaxis Continue Lovenox VS,Fishbone, I+O VS, Fishbone, I+O Vital Signs Date Time Temp Pulse Resp B/P (MAP) Pulse Ox O2 Delivery O2 Flow Rate FiO2 02/17/20 20:34 147/56 02/17/20 20:34 61 02/17/20 06:00 98.6 17 97 Room Air I&O- Last 24 Hours up to 6 AM 02/17/20 06:00 Intake Total 1800 ml Output Total 1000 ml Balance 800 ml FRANCISCO DAO DO Feb 17, 2020 21:23
[2020-02-18 05:48] VITALS: BP 145/59
[2020-02-18 06:42] LABS: HEMATOCRIT 32.5 % (42.0-52.0); HEMOGLOBIN 10.3 g/dl (13.5-17.5); MEAN CORPUSCULAR HGB CONC 31.7 g/dl (32.0-36.5); MEAN CORPUSCULAR VOLUME 94.8 fl (80.0-96.0); PLATELET COUNT, AUTOMATED 275 10^3/uL (150-450); RED BLOOD COUNT 3.43 10^6/uL (4.30-6.10); WHITE BLOOD COUNT 8.9 10^3/uL (4.0-10.0)
[2020-02-18 07:04] LABS: BLOOD UREA NITROGEN 22 MG/DL (7-18); CALCIUM LEVEL 8.9 MG/DL (8.8-10.2); CARBON DIOXIDE LEVEL 30 MEQ/L (21-32); CHLORIDE LEVEL 107 MEQ/L (98-107); CREATININE FOR GFR 0.88 MG/DL (0.70-1.30); GLOMERULAR FILTRATION RATE > 60.0 (>35); GLUCOSE, FASTING 103 MG/DL (70-100); MAGNESIUM LEVEL 2.2 MG/DL (1.8-2.4); POTASSIUM SERUM 4.5 MEQ/L (3.5-5.1); SODIUM LEVEL 140 MEQ/L (136-145)
[2020-02-18] MEDS: HumaLOG INSULIN (NovoLOG) PER UNIT SC SCH ×4 (07:30→21:00)
[2020-02-18] MEDS: ASPIRIN 81 MG ENTERIC TAB PO SCH (10:38)
[2020-02-18] MEDS: SENOKOT S TAB PO SCH ×2 (10:38→21:01)
[2020-02-18] MEDS: ISOSORBIDE MON. (IMDUR) 60 MG XR TAB PO SCH ×2 (10:39→21:01)
[2020-02-18] MEDS: TAMSULOSIN 0.4 MG CAP PO SCH (10:40)
[2020-02-18] MEDS: CARVedilol 12.5 MG TAB PO SCH ×2 (10:41→21:01)
[2020-02-18] MEDS: LOSARTAN 50MG TABLET PO SCH (10:42)
[2020-02-18] MEDS: SPIRONOLACTONE 12.5MG PER 1/2 TABLET PO SCH (10:44)
[2020-02-18] MEDS: QUEtiapine FUMARATE 25 MG TAB PO SCH (17:39)
[2020-02-18] MEDS: ATORVASTATIN 20 MG TAB PO SCH (21:01)
[2020-02-18] MEDS: ENOXAPARIN 40MG/0.4ML SYRINGE (J1650 PER 10MG) SC SCH (21:02)
[2020-02-18] MEDS: LEVEMIR (INSULIN DETEMIR) 1 UNITS/0.01ML SC SCH (21:02)
[2020-02-19 06:00] VITALS: BP 148/64
[2020-02-19] MEDS: HumaLOG INSULIN (NovoLOG) PER UNIT SC SCH ×4 (07:59→20:03)
[2020-02-19] MEDS: TAMSULOSIN 0.4 MG CAP PO SCH (08:00)
[2020-02-19] MEDS: ASPIRIN 81 MG ENTERIC TAB PO SCH (08:00)
[2020-02-19] MEDS: LOSARTAN 50MG TABLET PO SCH (08:00)
[2020-02-19] MEDS: SPIRONOLACTONE 12.5MG PER 1/2 TABLET PO SCH (08:00)
[2020-02-19] MEDS: ISOSORBIDE MON. (IMDUR) 60 MG XR TAB PO SCH ×2 (08:01→20:04)
[2020-02-19] MEDS: SENOKOT S TAB PO SCH ×2 (08:01→20:04)
[2020-02-19] MEDS: CARVedilol 12.5 MG TAB PO SCH ×2 (08:01→20:05)
[2020-02-19] MEDS: QUEtiapine FUMARATE 25 MG TAB PO SCH (17:48)
[2020-02-19] MEDS: LEVEMIR (INSULIN DETEMIR) 1 UNITS/0.01ML SC SCH (20:03)
[2020-02-19] MEDS: ATORVASTATIN 20 MG TAB PO SCH (20:04)
[2020-02-19] MEDS: ENOXAPARIN 40MG/0.4ML SYRINGE (J1650 PER 10MG) SC SCH (20:04)
[2020-02-20 06:00] VITALS: BP 143/62
[2020-02-20] MEDS: SPIRONOLACTONE 12.5MG PER 1/2 TABLET PO SCH (08:46)
[2020-02-20] MEDS: HumaLOG INSULIN (NovoLOG) PER UNIT SC SCH ×4 (08:46→20:38)
[2020-02-20] MEDS: TAMSULOSIN 0.4 MG CAP PO SCH (08:46)
[2020-02-20] MEDS: ASPIRIN 81 MG ENTERIC TAB PO SCH (08:46)
[2020-02-20] MEDS: CARVedilol 12.5 MG TAB PO SCH ×2 (08:47→19:59)
[2020-02-20] MEDS: ISOSORBIDE MON. (IMDUR) 60 MG XR TAB PO SCH ×2 (08:47→20:00)
[2020-02-20] MEDS: LOSARTAN 50MG TABLET PO SCH (08:51)
[2020-02-20] MEDS: SENOKOT S TAB PO SCH ×2 (08:52→20:00)
[2020-02-20] MEDS: QUEtiapine FUMARATE 25 MG TAB PO SCH (17:27)
[2020-02-20] MEDS: LEVEMIR (INSULIN DETEMIR) 1 UNITS/0.01ML SC SCH (19:58)
[2020-02-20] MEDS: ENOXAPARIN 40MG/0.4ML SYRINGE (J1650 PER 10MG) SC SCH (19:59)
[2020-02-20] MEDS: ATORVASTATIN 20 MG TAB PO SCH (20:00)
[2020-02-21 06:00] VITALS: BP 153/81
[2020-02-21] MEDS: HumaLOG INSULIN (NovoLOG) PER UNIT SC SCH ×4 (08:30→21:00)
[2020-02-21] MEDS: SENOKOT S TAB PO SCH ×2 (08:31→20:35)
[2020-02-21] MEDS: SPIRONOLACTONE 12.5MG PER 1/2 TABLET PO SCH (08:31)
[2020-02-21] MEDS: TAMSULOSIN 0.4 MG CAP PO SCH (08:31)
[2020-02-21] MEDS: CARVedilol 12.5 MG TAB PO SCH ×2 (08:33→20:36)
[2020-02-21] MEDS: LOSARTAN 50MG TABLET PO SCH (08:33)
[2020-02-21] MEDS: ISOSORBIDE MON. (IMDUR) 60 MG XR TAB PO SCH ×2 (08:34→20:35)
[2020-02-21] MEDS: ASPIRIN 81 MG ENTERIC TAB PO SCH (08:34)
[2020-02-21] MEDS: QUEtiapine FUMARATE 25 MG TAB PO SCH (17:38)
[2020-02-21] MEDS: ATORVASTATIN 20 MG TAB PO SCH (20:35)
[2020-02-21] MEDS: LEVEMIR (INSULIN DETEMIR) 1 UNITS/0.01ML SC SCH (20:35)
[2020-02-21] MEDS: ENOXAPARIN 40MG/0.4ML SYRINGE (J1650 PER 10MG) SC SCH (20:35)
[2020-02-22 05:38] VITALS: BP 145/59
[2020-02-22] MEDS: ASPIRIN 81 MG ENTERIC TAB PO SCH (08:10)
[2020-02-22] MEDS: HumaLOG INSULIN (NovoLOG) PER UNIT SC SCH ×4 (08:10→20:12)
[2020-02-22] MEDS: TAMSULOSIN 0.4 MG CAP PO SCH (08:10)
[2020-02-22] MEDS: SPIRONOLACTONE 12.5MG PER 1/2 TABLET PO SCH (08:10)
[2020-02-22] MEDS: SENOKOT S TAB PO SCH ×2 (08:10→20:18)
[2020-02-22] MEDS: LOSARTAN 50MG TABLET PO SCH (08:11)
[2020-02-22] MEDS: ISOSORBIDE MON. (IMDUR) 60 MG XR TAB PO SCH ×2 (08:12→20:19)
[2020-02-22] MEDS: CARVedilol 12.5 MG TAB PO SCH ×2 (08:13→20:19)
[2020-02-22] MEDS: QUEtiapine FUMARATE 25 MG TAB PO SCH (16:53)
[2020-02-22] MEDS: RAMELTEON 8 MG TAB (ROZEREM) PO PRN (20:18)
[2020-02-22] MEDS: ENOXAPARIN 40MG/0.4ML SYRINGE (J1650 PER 10MG) SC SCH (20:19)
[2020-02-22] MEDS: ATORVASTATIN 20 MG TAB PO SCH (20:19)
[2020-02-22] MEDS: LEVEMIR (INSULIN DETEMIR) 1 UNITS/0.01ML SC SCH (20:20)
[2020-02-23 05:57] VITALS: BP 124/65
[2020-02-23] MEDS: ASPIRIN 81 MG ENTERIC TAB PO SCH (10:18)
[2020-02-23] MEDS: CARVedilol 12.5 MG TAB PO SCH ×2 (10:19→22:11)
[2020-02-23] MEDS: ACETAMINOPHEN TAB 650MG DOSE (2X325MG) PO PRN (10:19)
[2020-02-23] MEDS: TAMSULOSIN 0.4 MG CAP PO SCH (10:19)
[2020-02-23] MEDS: LOSARTAN 50MG TABLET PO SCH (10:20)
[2020-02-23] MEDS: ISOSORBIDE MON. (IMDUR) 60 MG XR TAB PO SCH ×2 (10:20→22:12)
[2020-02-23] MEDS: SENOKOT S TAB PO SCH ×2 (10:20→22:11)
[2020-02-23] MEDS: SPIRONOLACTONE 12.5MG PER 1/2 TABLET PO SCH (10:21)
[2020-02-23] MEDS: HumaLOG INSULIN (NovoLOG) PER UNIT SC SCH ×4 (10:21→21:00)
[2020-02-23] MEDS: QUEtiapine FUMARATE 25 MG TAB PO SCH (18:03)
[2020-02-23] MEDS: ENOXAPARIN 40MG/0.4ML SYRINGE (J1650 PER 10MG) SC SCH (22:10)
[2020-02-23] MEDS: LEVEMIR (INSULIN DETEMIR) 1 UNITS/0.01ML SC SCH (22:10)
[2020-02-23] MEDS: ATORVASTATIN 20 MG TAB PO SCH (22:12)
[2020-02-24 06:00] VITALS: BP 140/63
[2020-02-24] MEDS: HumaLOG INSULIN (NovoLOG) PER UNIT SC SCH ×4 (07:30→21:00)
[2020-02-24] MEDS: SENOKOT S TAB PO SCH ×2 (10:19→20:43)
[2020-02-24] MEDS: SPIRONOLACTONE 12.5MG PER 1/2 TABLET PO SCH (10:19)
[2020-02-24] MEDS: LOSARTAN 50MG TABLET PO SCH (10:19)
[2020-02-24] MEDS: TAMSULOSIN 0.4 MG CAP PO SCH (10:20)
[2020-02-24] MEDS: ASPIRIN 81 MG ENTERIC TAB PO SCH (10:20)
[2020-02-24] MEDS: CARVedilol 12.5 MG TAB PO SCH ×2 (10:20→20:44)
[2020-02-24] MEDS: ISOSORBIDE MON. (IMDUR) 60 MG XR TAB PO SCH ×2 (10:21→20:44)
[2020-02-24] MEDS: QUEtiapine FUMARATE 25 MG TAB PO SCH (17:39)
--- NOTE | 2020-02-24 20:41 | IPNPDOC ---
Subjective Date Seen The patient was seen on 02/24/20. Subjective Chief Complaint/HPI Mr. Boone is an 89 year old male with COPD, DM type 2, HTN, CVA, [place] s/p stents, and BPH who was brought to the ED for AMS. Today, he felt well. Denies chest pain or dyspnea. He performed the [facility] Mental Status ([facility]) examination. He scored 18/30 indicating he has dementia. This was communicated to PFS (Abhijeet Mcginnis) and daughter in law. The [facility] examination was given to Abhijeet to put on his chart Objective Physical Examination General Exam: Positive: Cooperative Eye Exam: Positive: EOMI ENT Exam: Positive: Atraumatic Neck Exam: Positive: Supple Chest Exam: Positive: Clear to auscultation Heart Exam: Positive: Rate Normal, Regular Rhythm Abdomen Exam: Positive: Normal bowel sounds, Soft; Negative: Tenderness Extremity Exam: Negative: Edema Neuro Exam: Positive: Normal Speech Psych Exam: Positive: Mood NL Assessment /Plan Assessment Mr. Boone is an 89 year old male with COPD, DM type 2, HTN, CVA, PA s/p stents, and BPH who was brought to the ED for AMS. We performed the UMS examination on 02/24/2020. He scored 18/[address] Ferraro and Dr. Roach signed a 2PC as patient lacks capacity to make medical decisions. Plan/VTE VTE Prophylaxis Ordered?: Yes Plan 1. UTI -UA on 01/13 suggests UTI -Urine culture grew Aerococcus urinae -Completed antibiotic course 2. HTN -Continue amlodipine, spironolactone, Imdur, and Losartan 3. Worsening dementia -Toxic metabolic encephalopathy ruled out as patient's mentation did not improve with resolution of UTI -Continue with Seroquel -May need penitentiary placement -Dementia measured with SLUMS examination. On 02/24/2020, he scored 18/30 indicating dementia. 4. Fall with subsequent R low back pain -lumbar spine XR and pelvis XR negative for fracture -c/w Tylenol and k pad for pain 5. Normocytic Anemia - Iron studies suggesting anemia of chronic disease 6. IDDM2 -Continue insulin regimen 7. CAD -Continue Aspirin and Lipitor 8. DVT prophylaxis -Continue Lovenox VS, I&O, 24H, Fishbone Vital Signs/I&O Vital Signs Date Time Temp Pulse Resp B/P (MAP) Pulse Ox O2 Delivery O2 Flow Rate FiO2 02/24/20 10:20 62 141/62 02/24/20 06:00 97.0 17 100 Room Air I&O- Last 24 Hours up to 6 AM 02/24/20 06:00 Intake Total 1620 ml Output Total 200 ml Balance 1420 ml Laboratory Data 24H LABS Laboratory Tests 2 02/24/20 06:28: Bedside Glucose (Misc Panel) 98 02/24/20 11:42: Bedside Glucose (Misc Panel) 152H 02/24/20 17:10: Bedside Glucose (Misc Panel) 170H 02/24/20 19:58: Bedside Glucose (Misc Panel) 223H LASHAWN FERRARO DO Feb 24, 2020 20:41
[2020-02-24] MEDS: ACETAMINOPHEN TAB 650MG DOSE (2X325MG) PO PRN (20:43)
[2020-02-24] MEDS: RAMELTEON 8 MG TAB (ROZEREM) PO PRN (20:43)
[2020-02-24] MEDS: LEVEMIR (INSULIN DETEMIR) 1 UNITS/0.01ML SC SCH (20:43)
[2020-02-24] MEDS: ENOXAPARIN 40MG/0.4ML SYRINGE (J1650 PER 10MG) SC SCH (20:44)
[2020-02-24] MEDS: ATORVASTATIN 20 MG TAB PO SCH (20:44)
[2020-02-25 06:00] VITALS: BP 133/59
[2020-02-25] MEDS: HumaLOG INSULIN (NovoLOG) PER UNIT SC SCH ×4 (07:30→20:28)
[2020-02-25] MEDS: SPIRONOLACTONE 12.5MG PER 1/2 TABLET PO SCH (08:55)
[2020-02-25] MEDS: TAMSULOSIN 0.4 MG CAP PO SCH (08:55)
[2020-02-25] MEDS: ISOSORBIDE MON. (IMDUR) 60 MG XR TAB PO SCH ×2 (08:55→20:30)
[2020-02-25] MEDS: LOSARTAN 50MG TABLET PO SCH (08:56)
[2020-02-25] MEDS: CARVedilol 12.5 MG TAB PO SCH ×2 (08:56→20:30)
[2020-02-25] MEDS: SENOKOT S TAB PO SCH ×2 (08:56→20:29)
[2020-02-25] MEDS: ASPIRIN 81 MG ENTERIC TAB PO SCH (08:56)
[2020-02-25] MEDS: QUEtiapine FUMARATE 25 MG TAB PO SCH (18:40)
[2020-02-25] MEDS: LEVEMIR (INSULIN DETEMIR) 1 UNITS/0.01ML SC SCH (20:28)
[2020-02-25] MEDS: ENOXAPARIN 40MG/0.4ML SYRINGE (J1650 PER 10MG) SC SCH (20:29)
[2020-02-25] MEDS: ATORVASTATIN 20 MG TAB PO SCH (20:30)
[2020-02-26 06:00] VITALS: BP 137/67
[2020-02-26] MEDS: SENOKOT S TAB PO SCH ×2 (08:13→19:52)
[2020-02-26] MEDS: LOSARTAN 50MG TABLET PO SCH (08:13)
[2020-02-26] MEDS: ISOSORBIDE MON. (IMDUR) 60 MG XR TAB PO SCH ×2 (08:13→19:52)
[2020-02-26] MEDS: TAMSULOSIN 0.4 MG CAP PO SCH (08:13)
[2020-02-26] MEDS: HumaLOG INSULIN (NovoLOG) PER UNIT SC SCH ×4 (08:14→20:02)
[2020-02-26] MEDS: SPIRONOLACTONE 12.5MG PER 1/2 TABLET PO SCH (08:14)
[2020-02-26] MEDS: ASPIRIN 81 MG ENTERIC TAB PO SCH (08:14)
[2020-02-26] MEDS: CARVedilol 12.5 MG TAB PO SCH ×2 (08:14→19:52)
[2020-02-26] MEDS: QUEtiapine FUMARATE 25 MG TAB PO SCH (17:01)
[2020-02-26] MEDS: LEVEMIR (INSULIN DETEMIR) 1 UNITS/0.01ML SC SCH (19:51)
[2020-02-26] MEDS: ENOXAPARIN 40MG/0.4ML SYRINGE (J1650 PER 10MG) SC SCH (19:51)
[2020-02-26] MEDS: ATORVASTATIN 20 MG TAB PO SCH (19:52)
[2020-02-27 06:00] VITALS: BP 155/68
[2020-02-27] MEDS: HumaLOG INSULIN (NovoLOG) PER UNIT SC SCH ×4 (07:30→21:00)
[2020-02-27] MEDS: ISOSORBIDE MON. (IMDUR) 60 MG XR TAB PO SCH ×2 (09:26→21:32)
[2020-02-27] MEDS: CARVedilol 12.5 MG TAB PO SCH ×2 (09:27→21:32)
[2020-02-27] MEDS: ACETAMINOPHEN TAB 650MG DOSE (2X325MG) PO PRN (09:27)
[2020-02-27] MEDS: ASPIRIN 81 MG ENTERIC TAB PO SCH (09:27)
[2020-02-27] MEDS: TAMSULOSIN 0.4 MG CAP PO SCH (09:27)
[2020-02-27] MEDS: SPIRONOLACTONE 12.5MG PER 1/2 TABLET PO SCH (09:28)
[2020-02-27] MEDS: LOSARTAN 50MG TABLET PO SCH (09:28)
[2020-02-27] MEDS: SENOKOT S TAB PO SCH ×2 (09:31→21:29)
[2020-02-27] MEDS ORDERED: INSUDET SC (15:55)
[2020-02-27] MEDS ORDERED: FLOM0.4C39 PO (15:55)
[2020-02-27] MEDS ORDERED: AMLO1TAB25 PO (15:55)
[2020-02-27] MEDS: MOM 30ML SUSPENSION UDC PO SCH ×4 (16:00→21:37)
[2020-02-27] MEDS ORDERED: BISACODYL 10 MG SUPP PR ONE (16:00)
--- NOTE | 2020-02-27 16:11 | DS.PDOC ---
Discharge Summary General Date of Admission Jan 14, 2020 at 17:10 Date of Discharge 02/27/20 [facility] Discharge Summary DISCHARGE DIAGNOSES: UTI HTN Worsening dementia Acute encephalopathy Fall with subsequent R low back pain Normocytic Anemia IDDM2 CAD STENTS COPD DISCHARGE MEDICATIONS: SEE BELOW ALLERGIES: SEE BELOW DISCHARGE INSTRUCTIONS: HOLD ISOSORBIDE, NORVASC, LOSARTAN, SPIRONOLACTONE FOR SYSTOLIC BLOOD PRESSURE<140MMHG. ASSISTED AMBULATION ONLY DUE TO FALL RISK. PCP FU WITHIN 5DAYS OF DISCHARGE. HOSPITAL COURSE: 89 yo male with a past medical history of COPD, T2DM, HTN, CVA, CT s/p stents, and BPH brought in by his daughter due to altered mental status, found to have a UTI, and completed a full course of antibiotics w/o fever, chills. Blood cultures were negative. He had a fall evaluated with lumbar spine xray and pelvic xray which showed no acute fracture. His levemir insulin was decreased to prevent hypoglycemia, and his norvasc was increased for better blood pressure control. UTI -UA on 01/13 suggests UTI -Urine culture grew Aerococcus urinae -S/P 5days iv ceftiaxone and 2 days of amoxicillin. HTN -Continue amlodipine, spironolactone, Imdur, and Losartan Worsening dementia -SNF placement -treated for UTI and other causes of acute delirium -tried on seroquel without adverse effects -Dementia measured with SLUMS examination. On 02/24/2020, he scored 18/30 indicating dementia. Fall with subsequent R low back pain -lumbar spine XR and pelvis XR negative for fracture -c/w Tylenol and k pad for pain -kept on fall precautions and assisted ambulation Normocytic Anemia - Iron studies suggesting anemia of chronic disease IDDM2 -Continue insulin regimen CAD -Continue Aspirin and Lipitor DVT prophylaxis -Continue Lovenox DISCHARGE MEDICATIONS: Please see below. ALLERGIES: Please see below. PHYSICAL EXAMINATION ON DISCHARGE: VITAL SIGNS: Please see below. GENERAL: Alert, comfortable, in no acute distress. HEENT: Normocephalic, atraumatic, EOMI, moist mucous membranes NECK: Supple, trachea midline CARDIOVASCULAR: Regular rate and rhythm, normal S1 and S2. No murmurs, rubs, or gallops RESPIRATORY: Clear to auscultation bilaterally with equal air entry bilaterally. No wheezing, rhonchi, or rales. ABDOMEN: Soft, nontender, nondistended, bowel sounds present, no masses or hep atosplenomegaly appreciated EXTREMITIES: Trace edema in bilateral lower extremities. Pulses 2+/4 in bilateral upper and lower extremities NEUROLOGIC: Alert and oriented x3 to person, place and time. No focal deficits appreciated PSYCHIATRIC: normal mood and affect DISCHARGE LABORATORY DATA: Please see below. IMAGIN01/14/20 CXR COMPARISON: 03/21/2018. TECHNIQUE: SINGLE PORTABLE AP VIEW OF THE CHEST WAS PERFORMED. FINDINGS: There is no acute infiltrate. There is mild cardiomegaly. There is calcificati on and tortuosity of the thoracic aorta. The mediastinal silhouette is unchanged. Left 2 lead pacemaker is again noted. IMPRESSION: NO ACUTE PULMONARY DISEASE.Mild cardiomegaly. <Electronically signed by Eugenio Fritz > 01/14/20 1400 01/16/20 PELVIC XRAY fall, right sided pain. COMPARISON: Abdomen and pelvis CT dated 03/18/2018. TECHNIQUE: Single AP view FINDINGS: No pelvic fracture is identified. The right and left hip articulations are unremarkable. The sacroiliac articulations are unremarkable. There are no calcifications or foreign bodies. IMPRESSION: No pelvic fracture. <Electronically signed by Eugenio Vela > 01/16/20 1028 01/16/20XRAYSPINE INDICATION: fall, right sided pain. COMPARISON: None. TECHNIQUE: There are five views. FINDINGS: There is demineralization. Vertebral body heights and alignment are normal. There is mild disc space narrowing throughout the lumbar spine with small anterior osteophytes compatible with multilevel degenerative disc disease. There is mild scoliosis convex left at L4-5. The pedicles are unremarkable. The facets demonstrate mild osteoarthritis. There is questionable spondylolysis at L5 on the left. There is no spondylolysis on the right. There is no spondylolisthesis. IMPRESSION: There is no compression deformity or listhesis. There is mild scoliosis convex left at L4-5. Facet osteoarthritis. Questionable L5 spondylolysis without spondylolisthesis on the left. Mild multilevel degenerative disc disease. <Electronically signed by Eugenio Vela > 01/16/20 1024 01/14/20 CT HEAD WITHOUT CONTRAST altered mental status. COMPARISON: Comparison head CT study May 06, 2011.. TECHNIQUE: Helical scanning is acquired. 5 mm axial images were reformatted. Coronal MPR images were generated. FNDINGS: Digital preliminary winemaker radiograph is unremarkable. The patient is edentulous. On bone window settings there is partial opacification of the ethmoid air cells bilaterally. Visualized paranasal sinuses are otherwise clear. There is vascular calcification in the distal internal carotid arteries. No bony calvarial destructive lesion is seen. On soft tissue window settings, there is mild to moderate generalized volume loss. There is concordant ventricular enlargement. This is slightly more prominent but otherwise unchanged from the 25/01 prior study. There are small old lacunar infarcts in the basal ganglia bilaterally unchanged from the 25/01 study. There is no evidence of intracranial hemorrhage. No extra-axial hematoma is seen. No infarct or midline shift is seen. IMPRESSION: Generalized volume loss, small vessel changes, vascular calcification, and old lacunar infarcts in the basal ganglia bilaterally. No acute intracranial abnormality.. <Electronically signed by Brock Crowder > 01/14/20 2690 TIME SPENT ON DISCHARGE: 30 minutes. Vital Signs/I&Os Vital Signs Date Time Temp Pulse Resp B/P (MAP) Pulse Ox O2 Delivery O2 Flow Rate FiO2 02/27/20 09:28 155/68 02/27/20 09:27 60 02/27/20 06:00 97.7 18 98 Room Air I&O- Last 24 Hours up to 6 AM 02/27/20 06:00 Intake Total 2420 ml Output Total 0 ml Balance 2420 ml Laboratory Data Labs 24H Laboratory Tests 2 02/26/20 16:58: Bedside Glucose (Misc Panel) 223H 02/26/20 19:44: Bedside Glucose (Misc Panel) 154H 02/27/20 05:46: Bedside Glucose (Misc Panel) 115H 02/27/20 12:04: Bedside Glucose (Misc Panel) 112H FSBS Laboratory Tests Test 02/26/20 16:58 02/26/20 19:44 02/27/20 05:46 02/27/20 12:04 Range/Units Bedside Glucose (Misc Panel) 223 154 115 112 83-110 MG/DL Discharge Medications Scheduled Amlodipine Besylate (Amlodipine Besylate) 10 Mg Tablet, 10 MG PO DAILY Aspirin (Aspirin EC) 81 Mg Tab, 81 MG PO DAILY, (Reported) Atorvastatin Calcium (Atorvastatin Calcium) 40 Mg Tablet, 40 MG PO QHS, (Reported) PATIENT HAS RX FOR PRAVASTATIN 20MG FROM 01/09/20 BUT HAS NOT PICKED UP YET Carvedilol (Carvedilol) 25 Mg Tablet, 25 MG PO BID, (Reported) Esomeprazole Magnesium (Nexium) 40 Mg Gra, 40 MG PO DAILY, (Reported) Insulin Detemir (Levemir) 100 Unit/1 Ml Vial, 10 UNITS SC QHS Isosorbide Mononitrate (Isosorbide Mononitrate ER) 60 Mg Tab.er.24h, 60 MG PO BID, (Reported) Losartan Potassium (Losartan Potassium) 100 Mg Tablet, 100 MG PO QHS, (Reported) UNABLE TO VERIFY MEDICATION WITH PHARMACY, ON MED LIST FROM DR ROPER Spironolactone (Aldactone) 25 Mg Tablet, 12.5 MG PO DAILY, (Reported) Tamsulosin HCl (Flomax) 0.4 Mg Capsule, 0.8 MG PO DAILY Allergies Coded Allergies: No Known Drug Allergies (Verified Allergy, Unknown, 09/07/18) YENNIFER ELLIS MD Feb 27, 2020 16:04
[2020-02-27] MEDS ORDERED: XANA0.5T PO (16:12)
[2020-02-27] MEDS: QUEtiapine FUMARATE 25 MG TAB PO SCH (17:29)
[2020-02-27] MEDS: ENOXAPARIN 40MG/0.4ML SYRINGE (J1650 PER 10MG) SC SCH (21:30)
[2020-02-27] MEDS: LEVEMIR (INSULIN DETEMIR) 1 UNITS/0.01ML SC SCH (21:30)
[2020-02-27] MEDS: ATORVASTATIN 20 MG TAB PO SCH (21:30)
[2020-02-28 05:47] VITALS: BP 112/47
[2020-02-28] MEDS ORDERED: LOSARTAN 50MG TABLET PO SCH (09:00)
[2020-02-28] MEDS: CARVedilol 12.5 MG TAB PO SCH (09:00)
[2020-02-28] MEDS: SENOKOT S TAB PO SCH (09:02)
[2020-02-28] MEDS: SPIRONOLACTONE 12.5MG PER 1/2 TABLET PO SCH (09:03)
[2020-02-28 09:04] VITALS: BP 112/47
[2020-02-28] MEDS: TAMSULOSIN 0.4 MG CAP PO SCH (09:04)
[2020-02-28] MEDS: ASPIRIN 81 MG ENTERIC TAB PO SCH (09:04)
[2020-02-28] MEDS: ISOSORBIDE MON. (IMDUR) 60 MG XR TAB PO SCH (09:04)
[2020-02-28] MEDS: HumaLOG INSULIN (NovoLOG) PER UNIT SC SCH (09:05)
[2020-02-28] MEDS ORDERED: ALPRAZolam 0.5 MG TAB PO PRN (10:30)
== END 2020-02-28 14:13 | DRG 884 ==
LOC: M ED 12:11 → M ED INP 17:10 → ENRESERV 01-15 02:57 → M PCU 01-15 03:50 → M MS5PR 01-18 01:16
PROVIDERS: ADMIT Internal Medicine; ATTEND General Practice
DX: F03.91 Unspecified dementia, unspecified severity, with behavioral disturbance (principal); N39.0 Urinary tract infection, site not specified; I10 Essential (primary) hypertension; E11.9 Type 2 diabetes mellitus without complications; D64.9 Anemia, unspecified; I25.10 Atherosclerotic heart disease of native coronary artery without angina pectoris; Z95.2 Presence of prosthetic heart valve; I25.2 Old myocardial infarction; Z79.899 Other long term (current) drug therapy; Z79.82 Long term (current) use of aspirin; N40.0 Benign prostatic hyperplasia without lower urinary tract symptoms; Z87.891 Personal history of nicotine dependence; M54.5 Low back pain